=== PATIENT | female | born 1945 | race Caucasian/White ===

== ENCOUNTER 2021-03-04 14:17 | Outpatient (CLI) | payer MEDICARE, SELFPAY | END 2021-03-04 23:59 | disposition short-term general hospital (02) | PROVIDERS: Visit Provider Obstetrics & Gynecology | DX: R30.0 Dysuria (principal) | CPT/HCPCS: 87086; 87088 ==

== ENCOUNTER 2021-03-09 14:28 | Outpatient (CLI) | payer MEDICARE, SELFPAY ==
--- NOTE | 2021-03-09 14:36 | US_ITS ---
STUDY: ULTRASOUND OF THE FEMALE PELVIS - COMPLETE REASON FOR EXAM: Female, 75 years old. pelvic pain TECHNIQUE: Endovaginal. Transvaginal US was obtained to better visualized the ovaries. Examination is dated 03.09.21 but is only now available for review. COMPARISON: None. FINDINGS: The uterus is retroverted and is in a midline position. The uterus measures 7.6 x 3.2 cm. There is a Nabothian cyst of the cervix. The endometrium measures 4 mm in thickness, and is hyperechoic. There is a 7 x 7 x 8 mm heterogeneous nodule near or within the endometrium. I.U.D. - The patient does not have an I.U.D. There is nonvisualization of the right ovary due to overlying bowel gas. There is nonvisualization of the left ovary due to overlying bowel gas. There is no fluid in the cul-de-sac. Urinary bladder is 115 cc. US/Transvaginal Non- IMPRESSION: Atrophic uterus. There are Nabothian cysts of the cervix. Question subendometrial fibroid in the uterus vs endometrial mass. Given the patient''s age direct visualization is recommended Electronically Signed: Dale Nichols MD at 14:58 EST , Service support ,
--- NOTE | 2021-03-09 14:36 | US_ITS ---
STUDY: ULTRASOUND OF THE FEMALE PELVIS - COMPLETE REASON FOR EXAM: Female, 75 years old. pelvic pain TECHNIQUE: Transabdominal. Examination is dated 03.09.21 but is only now available for review. COMPARISON: None. FINDINGS: The uterus is retroverted and is in a midline position. The uterus measures 7.6 x 3.2 cm. There is a Nabothian cyst of the cervix. The endometrium measures 4 mm in thickness, and is hyperechoic. There is a 7 x 7 x 8 mm heterogeneous nodule near or within the endometrium. I.U.D. - The patient does not have an I.U.D. There is nonvisualization of the right ovary due to overlying bowel gas. There is nonvisualization of the left ovary due to overlying bowel gas. There is no fluid in the cul-de-sac. Urinary bladder is 115 cc. US/Pelvic (Non ) IMPRESSION: Atrophic uterus. There are Nabothian cysts of the cervix. Question subendometrial fibroid in the uterus vs endometrial mass. Given the patient''s age direct visualization is recommended Electronically Signed: Dale Nichols MD at 15:00 EST , Service support ,
== END 2021-03-09 23:59 | disposition short-term general hospital (02) ==
PROVIDERS: Referring Provider Obstetrics & Gynecology; Visit Provider Obstetrics & Gynecology
DX: N81.6 Rectocele (principal)
CPT/HCPCS: 76830; 76856

== ENCOUNTER 2021-05-15 10:19 | Observation (INO) | payer MEDICARE, SELFPAY ==
--- NOTE | 2021-05-14 15:46 | EKG12_ITS ---
Test Reason : PREOP Blood Pressure : / mmHG Vent. Rate : 059 BPM Atrial Rate : 059 BPM P-R Int : 244 ms QRS Dur : 076 ms QT Int : 408 ms P-R-T Axes : 048 -14 027 degrees QTc Int : 403 ms Sinus bradycardia with 1st degree A-V block Voltage criteria for left ventricular hypertrophy Abnormal ECG Confirmed by RIOS WARD, JESSICA ([id number]), food expeditor ESTHER MELO ([id number]) on 05/18/2021 9:48:50 AM Referred By: Martine Thorpe Confirmed By:RIOS NATION MD
[2021-05-14 16:36] LABS: Hematocrit 40.3 % (37-47); Hemoglobin 12.6 g/dL (12.0-15.0); Mean Corp Hgb Conc 31.3 g/dL (32-36); Mean Corpuscular Hgb 29.2 pg (27.0-32.0); Mean Corpuscular Volume 93.5 fL (81-99); Mean Platelet Vol. 10.1 fl (6.2-12.0); Platelet Count 257 K/mm3 (150-450); RBC Distribution Width CV 12.7 % (11.6-14.6); RBC Distribution Width SD 43.8 fl (35.1-43.9); Red Blood Count 4.31 M/mm3 (4.2-5.4); White Blood Count 5.5 K/mm3 (4.4-11.0)
[2021-05-14 17:26] LABS: Magnesium 2.1 mg/dL (1.6-2.6); Thyroid Stim Hormone (TSH) 0.22 uIU/mL (0.358-3.74)
--- NOTE | 2021-05-14 18:24 | PCM.HP.BLA ---
History and Physical Date of Admission: 05/15/21 MR#:[id number]:[id number]: ERLINDA MOHANRep #:[id number] Provider:Dr. Martine Thorpe, DOAge/Sex: 75/F [facility] [place]Signed Intake Vital Signs 05/12/21 15:40 Height 5 ft 9 in Weight: 215 lb 2 oz BMI 31.7 BP 160/70 H Intake Visit Reasons: TVH possible salp. Karen saxena Group Manager Required: No Is patient in pain?: No Allergies aspirin Allergy (Mild, Verified 05/12/21 10:21) difficulty breathing lactose Allergy (Verified 05/12/21 10:21) Upset Stomach Medications alendronate 70 mg tablet 70 mg PO QWEEK 03/04/21 [History Confirmed 05/12/21] ascorbic acid (vitamin C) 500 mg capsule 500 mg PO DAILY 03/04/21 [History Confirmed 05/12/21] cholecalciferol (vitamin D3) 50 mcg (2,000 unit) capsule 50 mcg PO DAILY 03/04/21 [History Confirmed 05/12/21] cranberry 400 mg capsule 400 mg PO DAILY 03/04/21 [History Confirmed 05/12/21] folic acid 1 mg tablet 1 mg PO DAILY 03/04/21 [History Confirmed 05/12/21] levothyroxine 50 mcg tablet 125 mcg PO DAILY tab 03/04/21 [History Confirmed 05/12/21] metoprolol succinate 50 mg tablet,extended release 24 hr 50 mg PO DAILY 03/04/21 [History Confirmed 05/12/21] omega-3 fatty acids 1,000 mg capsule 1,000 mg PO DAILY 03/04/21 [History Confirmed 05/12/21] sertraline 50 mg tablet 50 mg PO DAILY 03/04/21 [History Confirmed 05/12/21] Lactobacillus acidophilus [Probiotic] 10,000 mmu cells PO DAILY 05/12/21 [History Confirmed 05/12/21] biotin 5 mg PO DAILY 05/12/21 [History Confirmed 05/12/21] ginkgo biloba 50 mg PO BID 05/12/21 [History Confirmed 05/12/21] loratadine [Allerclear] 10 mg PO DAILY 05/12/21 [History Confirmed 05/12/21] multivitamin 1 tab PO DAILY 05/12/21 [History Confirmed 05/12/21] turmeric 400 mg PO DAILY 05/12/21 [History Confirmed 05/12/21] vitamin E 100 unit PO DAILY 05/12/21 [History Confirmed 05/12/21] Is last menstrual period known: No Post menopausal: Yes Patient : No : No PFSH Medical History Alcohol use Arthritis Asthma Back pain Hypertension Non-smoker Post-menopausal Shortness of breath on exertion Thyroid disease Wears dentures Wears glasses Surgical History S/P hernia repair S/P tonsillectomy Status post left knee replacement Status post right knee replacement Family History Father Diabetes Social History Smoking Status: Never smoker alcohol intake: current details: occasionally substance use type: does not use caffeine: Yes what type of physical activity do you participate in: other details: water aerobics frequency: 1-2 times per week seatbelt use: always do you feel safe at home: Yes additional social history: HPI TVH possible salp. Jones combo Details: ERLINDA MOHAN is a 75 year old who presents for preop counseling to and to signs consents. She is scheduled for a total vaginal hysterectomy with A&P repair with myself and Dr. Jones. we discussed trying to also remove the fallopian tubes and ovaries if possible. This is being performed for vaginal prolapse. Pregancy History 5 Elective abortions Hx Para 5 Spontaneous abortions Hx # Term Pregnancies Ectopic pregnancies Hx # Pregnancies Multiple births # of living children Past Pregnancies Del. Date Name GA/Weeks Outcome Route Bth Weight Infant Gen Labor Lgth Anesthesia Del Locatn Provider FOB Unknown Chloe Unknown Norma Unknown Jo Unknown Ayaan Unknown Grupo ROS Const ROS Unobtainable: All systems reviewed & are unremarkable except as noted in H Resp Resp: Reports system reviewed and no additional complaints, except as documented; Denies cough GI GI: Reports as per HPI Psych Psych: Reports system reviewed and no additional complaints, except as documented Exam Const General: cooperative, healthy appearing, comfortable and no acute distress Resp Effort & Inspection: normal respiratory effort Skin General: no rashes or lesions noted Psych Appearance: grossly normal Speech and Movement: speech and movement normal Coding Level of Care Code Off vis,est,level 3 Diagnoses Preop examination Z01.818 Hypothyroidism E03.9 Hypertension I10 Anxiety F41.9 Osteopenia M85.80 Pelvic organ prolapse quantification stage 2 rectocele N81.6 Assessment and Plan Assessment and Plan (1) Preop examination: (2) Hypothyroidism: Status: Acute (3) Hypertension: Status: Chronic (4) Anxiety: Status: Acute (5) Osteopenia: Status: Acute (6) Pelvic organ prolapse quantification stage 2 rectocele: Status: Acute Comment: minimal uterine descent, however grade 2/3 rectocele and mild cystocele on spec exam.'pt has surgery scheduled with Dr. Jones on 05/15 for recotocele and cystocele repair and would like to proceed with hysterectomy for optimal improvement in pelvic floor prolapse. Plan - Dr. Martine Thorpe DO: After discussing the patient's diagnosis and treatment plan options, patient wishes to proceed with surgical management. I have discussed with the patient the risks, benefits, and alternatives of the procedure which include but are not limited to risks of anesthesia, bleeding, infection, possible damage to bowel, bladder, or surrounding vasculature which could lead to additional surgery to evaluate any complications. Patient agrees to procedure and wishes to proceed. ACOG/uptodate references given for additional information regarding procedure. UPDATE- I have seen the patient and performed any clinically relevant updates to the history and physical exam. Martine Thorpe DO
[2021-05-15] VITALS (14 sets, daily range): BP systolic 108–171; BP diastolic 54–85; PULSE 48–69; RESP 14–18; TEMP 36.2–36.9; O2SAT 95–100; BMI 33.1
[2021-05-15 06:21] LABS: Bedside Glucose 136 mg/dL (74-106)
[2021-05-15] MEDS: Lactated Ringers 1,000 ML 40 ML IV (06:27)
[2021-05-15] MEDS: Acetaminophen 500 MG Tablet 1000 MG PO ×2 (06:28→16:38)
[2021-05-15] MEDS: Celecoxib 200 MG Capsule 400 MG PO (06:28)
[2021-05-15] MEDS: Gabapentin 600 MG Tablet PO (06:28)
[2021-05-15 07:26] LABS: Anion Gap 4 (5-15); BUN 16 mg/dL (7-18); BUN/Creat Ratio 21.1 RATIO (10-20); Calcium,Total 9.1 mg/dL (8.5-10.1); Chloride 108 mmol/L (98-107); Creatinine, Serum 0.76 mg/dL (0.55-1.02); EST Glomerular Filtration Rate 79 mL/min (>60); Est Glom Filt Rate - Afr Amer 95 mL/min (>60); Estimated Creatinine Clearance 49.03 ml/min; Glucose 98 mg/dL (74-106); Potassium 4.5 mmol/L (3.5-5.1); Sodium Level 139 mmol/L (136-145)
[2021-05-15] MEDS: Cefazolin 2 GM in 0.9% Normal Saline 100 ML IV (07:27)
--- NOTE | 2021-05-15 07:30 | HYST_PTH ---
PATIENT: ERLINDA MOHAN LOC: [facility] U#:[id number] AGE/SX: 75/F ROOM: [facility] [place] RE05/15/[address]: Dr. Martine Thorpe DO : 1945 BED: 1 DIS: 05/16/2021 SPEC #: [id number] RECD: 05/15/21 10:35 STATUS: NAFISA CASTILLO #: [id number] ANKUR: 05/15/21 07:[address]: Martine Thorpe DEPT: SURGICAL PATHOLOGY RECD BY: Leah Lester ENTERED: 05/15/21 10:48 SP TYPE: HYSTERECT OTHR DR: MD Dr. Alexa Hillman MD Tissues: Uterus, NOS Procedures: Surgery Specimen Level V HEADER OPERATION: ERAS, vaginal hysterectomy, right salpingo-oophorectomy PRE-OP DIAGNOSIS: Pelvic organ prolapse, rectocele, cystocele TISSUE SUBMITTED: Uterus and right tube and ovary MICROSCOPIC DIAGNOSIS Uterus, hysterectomy: Cervix ? nabothian cysts and mild chronic inflammation. Endometrium ? weakly proliferative inactive endometrium with focal cystic change. Myometrium ? leiomyomas with focal lipomatous metaplasia. Right ovary ? corpora albicantia. Right fallopian tube ? benign paratubal cysts. AM:ethan 05/18/2021 MICROSCOPIC DESCRIPTION Slides are reviewed. GROSS DESCRIPTION Received in fixative is one container labeled with the patient's name and designated uterus. The specimen consists of a uterus with attached cervix measuring 9.5 x 5 x 3.3 cm and weighing 62.6 gm. The endocervical canal measures 3.3 cm in length and is grossly unremarkable. The triangular endometrial cavity measures 3.5 x 3 cm. The velvety, light dominguez endometrium measures 0.2 cm in thickness. The myometrium averages 1.5 cm in thickness and contains three rubbery, dominguez nodules ranging in size from 0.5 to 0.8 cm and grossly resembling leiomyomas. Present free in the container is a smooth, glistening dominguez-yellow ovary measuring 1.7 x 1.5 x 1 cm. Serial sections do not reveal mass lesions. Bacteriology Research Assistant sections are submitted in seven cassettes as follows: 1 - anterior cervix, 2??posterior cervix, 3 - anterior uterine wall with myometrial mass, 4 - anterior uterine wall, 5 - posterior uterine wall with myometrial mass, 6 - posterior myometrial wall with additional myometrial mass, 7??ovary and fallopian tube. / AM:ethan 05/15/2021 TC:1 CPT: 14813
[2021-05-15] MEDS: Bupivacaine 0.25% 30 ML Vial (07:57)
[2021-05-15] MEDS: Estrogens,Conj. 1 Tube 1 DOSE (09:57)
--- NOTE | 2021-05-15 10:05 | OP.PCM_ITS ---
Problems Associated Problem List Diagnoses (1) Cystocele with uterine descensus: Report of Operation Date of Procedure: 05/15/21 Pre-Operative Diagnosis: Cystocele, uterine prolapse Post-Operative Diagnosis: Same Surgery/Procedure Performed:: Anterior repair with dermis, bilateral sacrospinous ligament fixation, cystoscopy with bilateral ureteral catheterization Surgeon: Alexa Jones Type of Anesthesia: General Specimen's removed: None Estimated Blood Loss (mL): 15 cc Description of Procedure: The patient is a 75-year-old female with pelvic organ prolapse who underwent testing in the office with urodynamics and office cystoscopy who now presents for surgical intervention in combination with gynecology. Informed consent was obtained. The patient was taken to the operating room and placed on the operating room table. Anesthesia monitored the head, neck, airway, IV access and vital signs throughout the case. Once anesthesia was appropriate ministered, the patient was placed into Trendelenburg and dorsal lithotomy position and was prepped and draped in usual sterile fash ion. A Luna catheter was inserted and the bladder was drained. A hysterectomy was performed by Dr. Gomez. At the closure of the cuff the case was turned over to sc. The anterior vaginal wall was isolated and injected submucosally with Marcaine for hydrostatic dissection. A midline incision approximately 2 cm in length was then made. Dissection was performed in full-thickness fashion on both sides until the ischial spines were palpable and the sacrospinous ligaments were identified and freed from surrounding tissues bilaterally. At this time the Capio device was used to pass an Ethibond suture through each ligament bilaterally. This was then brought out through a piece of dermis and then ultimately full-thickness through the vaginal mucosal wall laterally at the apex. The dermis was then sutured into position in the midline apically and at the area of the bladder neck and bilaterally. When this was completed, the midline incision was closed using running interlocking 2-0 Vicryl. The Ethibond sutures were then tied into position and the prolapse was reduced. There is no significant posterior defect at this time. The Luna catheter was removed and the cystoscope was inserted through the urethra under direct visualization. The bladder mucosa was visualized in its entirety and found to be without evidence of injury, foreign body or other abnormality including mass. Bilateral ureteral orifices were identified in the area of the trigone. A whistle-tip catheter was passed gently to 20 cm on both sides revealing no evidence of injury or obstruction to either ureter. At this time the cystoscope was removed and the Luna catheter was reinserted and the balloon inflated with 10 cc of sterile water. The vagina was packed with Premarin cream and vaginal packing. The patient was awakened and taken to the recovery room in good condition. There were no complications during this procedure. Complications None Admit VTE Documentation VTE Present on Admission: Yes VTE Mechan Device Prophylaxis: SCD's VTE Pharm Prophylaxis ordered?: Yes
--- NOTE | 2021-05-15 10:11 | PCM.DC ---
Documented by User: Dr. Alexa Jones MD 05/16/21 11:08 Discharge Instructions Diet Discharge Diet: No restrictions Activity Discharge Activity: May Shower May resume sexual activity in: 8 weeks Lifting Restrictions: No more than 5 pounds for 8 weeks Additional Activity Instructions:: No strenuous activity, no exercise, no tub bathing, no swimming, no hot tubs Dressing / Incision Call your doctor if your incision/area has: Continuous Slow Oozing, Sudden Increased Bleeding, Increased Pain/ Swelling and Foul Smelling Discharge Call your doctor if you observe: Fever of 101 or Higher, Inability to urinate and Inability to have a bowel movement Follow Up Care Please Follow Up With: Alexa Jones MD When: 2 weeks, call the office for appointment Test Results: Test results from this visit will be discussed in further detail at your follow-up appointment, if applicable. Discharge Plan Admission Admit Date/Time: 05/15/21 10:19 Primary Reason for Your Visit: hysterectomy, and vaginal repair of prolapse Attending Provider: Martine Thorpe Primary Care Provider: Alesia Pradhan Consulting Providers: Alexa Jones Instructions Patient Instructions: Hysterectomy Vaginal Dc Discharge Orders/Prescriptions Prescriptions: New oxycodone-acetaminophen [oxycodone-acetaminophen] 1 TABLET tablet 2 tab PO Q8H PRN PRN (Reason: Pain) 7 Days Qty: 20 RF: 0 cephalexin [cephalexin] 500 MG capsule 500 mg PO Q12 3 Days Qty: 6 RF: 0 ibuprofen 600 mg tablet 600 mg PO Q6H PRN (Reason: pain) 7 Days Qty: 28 RF: 0 ferrous gluconate 324 mg (38 mg iron) tablet 324 mg PO DAILY Qty: 30 RF: 0 No Action metoprolol succinate 50 mg tablet extended release 24 hr 50 mg PO DAILY RF: 0 sertraline 50 mg tablet 50 mg PO DAILY RF: 0 alendronate [Fosamax] 70 mg tablet 70 mg PO QWEEK RF: 0 ascorbic acid (vitamin C) 500 mg capsule 500 mg PO DAILY RF: 0 cholecalciferol (vitamin D3) 50 mcg (2,000 unit) capsule 50 mcg PO DAILY RF: 0 folic acid 1 mg tablet 1 mg PO DAILY RF: 0 omega-3 fatty acids 1,000 mg capsule 1,000 mg PO DAILY RF: 0 cranberry 400 mg capsule 400 mg PO DAILY RF: 0 levothyroxine [Synthroid] 50 mcg tablet 125 mcg PO DAILY RF: 0 multivitamin Tablet 1 tab PO DAILY RF: 0 biotin 5 mg Capsule 5 mg PO DAILY RF: 0 vitamin E 100 unit Capsule 100 unit PO DAILY RF: 0 ginkgo biloba 50 mg Capsule 50 mg PO BID RF: 0 loratadine [Allerclear] 10 mg Tablet 10 mg PO DAILY RF: 0 Probiotic 10 billion cell Capsule 10,000 mmu cells PO DAILY RF: 0 turmeric 400 mg Capsule 400 mg PO DAILY RF: 0 Referrals / Follow Up: Alesia Pradhan MD [Primary Care Provider] - Disposition Disposition (needs filled in before D/C Order can be placed): Home, Self Care Documented by User: Dr. Martine Thorpe DO 05/16/21 09:46 Discharge Plan Admission Admit Date/Time: 05/15/21 10:19 Primary Reason for Your Visit: hysterectomy, and vaginal repair of prolapse Attending Provider: Martine Thorpe Primary Care Provider: Alesia Pradhan Consulting Providers: Alexa Jones Instructions Patient Instructions: Hysterectomy Vaginal Dc Discharge Orders/Prescriptions Prescriptions: New oxycodone-acetaminophen [oxycodone-acetaminophen] 1 TABLET tablet 2 tab PO Q8H PRN PRN (Reason: Pain) 7 Days Qty: 20 RF: 0 cephalexin [cephalexin] 500 MG capsule 500 mg PO Q12 3 Days Qty: 6 RF: 0 ibuprofen 600 mg tablet 600 mg PO Q6H PRN (Reason: pain) 7 Days Qty: 28 RF: 0 ferrous gluconate 324 mg (38 mg iron) tablet 324 mg PO DAILY Qty: 30 RF: 0 No Action metoprolol succinate 50 mg tablet extended release 24 hr 50 mg PO DAILY RF: 0 sertraline 50 mg tablet 50 mg PO DAILY RF: 0 alendronate [Fosamax] 70 mg tablet 70 mg PO QWEEK RF: 0 ascorbic acid (vitamin C) 500 mg capsule 500 mg PO DAILY RF: 0 cholecalciferol (vitamin D3) 50 mcg (2,000 unit) capsule 50 mcg PO DAILY RF: 0 folic acid 1 mg tablet 1 mg PO DAILY RF: 0 omega-3 fatty acids 1,000 mg capsule 1,000 mg PO DAILY RF: 0 cranberry 400 mg capsule 400 mg PO DAILY RF: 0 levothyroxine [Synthroid] 50 mcg tablet 125 mcg PO DAILY RF: 0 multivitamin Tablet 1 tab PO DAILY RF: 0 biotin 5 mg Capsule 5 mg PO DAILY RF: 0 vitamin E 100 unit Capsule 100 unit PO DAILY RF: 0 ginkgo biloba 50 mg Capsule 50 mg PO BID RF: 0 loratadine [Allerclear] 10 mg Tablet 10 mg PO DAILY RF: 0 Probiotic 10 billion cell Capsule 10,000 mmu cells PO DAILY RF: 0 turmeric 400 mg Capsule 400 mg PO DAILY RF: 0 Referrals / Follow Up: Alesia Pradhan MD [Primary Care Provider] - Disposition Disposition (needs filled in before D/C Order can be placed): Home, Self Care
[2021-05-15] MEDS: Lactated Ringers @ 70 MLS/HR 70 ML IV (10:33)
[2021-05-15] MEDS: Ondansetron 4 MG/2 ML Vial IV (12:14)
[2021-05-15] MEDS: Lactated Ringers 1,000 ML 100 ML IV ×2 (12:53→21:48)
--- NOTE | 2021-05-15 12:54 | OP.PCM_ITS ---
Problems Associated Problem List Diagnoses (1) Cystocele with uterine descensus: (2) Hypothyroidism: (3) Hypertension: (4) Anxiety: (5) Osteopenia: (6) Pelvic organ prolapse quantification stage 2 rectocele: Report of Operation Date of Procedure: 05/15/21 Pre-Operative Diagnosis: pelvic organ prolapse Post-Operative Diagnosis: pelvic organ prolapse Surgery/Procedure Performed:: total vaginal hysterectomy, Right salpingo- oophorectomy Description of Surgical Findings:: Patient was taken to the operating room and was placed under general anesthesia was prepped and draped in normal sterile fashion in the dorsal lithotomy position. Preoperative antibiotics and SCDs and Luna catheter was placed inside the bladder. Weighted speculum was placed in the vagina and the anterior and posterior lip of the cervix was grasped with 2 Jose clamps and circumferentially injected with 0.25% marcaine. A circumferential incision was made with a scalpel and the posterior cul-de-sac was entered into sharply and a longneck speculum was placed. The anterior cul-de-sac was also dissected down and entered into sharply and the uterosacral ligaments were clamped cut and suture ligated bilaterally followed by the cardinal ligaments which were Clamped cut and suture ligated bilaterally with #0 Vicryl. The uterus serially descended and progressive bites were taken bilaterally up to the level of the utero-ovarian ligament bilaterally which was clamped transected and double ligated with #0 Vicryl suture and 0 Vicryl free tie. Bilateral fallopian tubes and ovaries were well visualized and noted be within normal limits and the bilateral fallopian tubes were transected across the base with a Alycia clamp and removed and sutured with 0 Vicryl suture. The right ovary and fallopian tube were identified easily and the infandibulopelvic ligament was doubly clamped and the tube and ovary were removed. #0 vicryl suture was used to creat excellent hemostasis. Posterior peritoneum was reapproximated with 1-0 Vicryl The vagina was closed with [id number] 0 Vicryl pop offs including the posterior and anterior peritoneum in the reapproximation. Excellent hemostasis was noted. All instruments removed from the vagina clear urine was noted at the end of the procedure. Dr. Jones then started her portion of the procedure. Surgeon: Martine Thorpe metal die finisher: Angella Marie Type of Anesthesia: General Estimated Blood Loss (mL): 50cc Description of Procedure: Patient was taken to the operating room and was placed under general anesthesia was prepped and draped in normal sterile fashion in the dorsal lithotomy position. Preoperative antibiotics and SCDs and Luna catheter was placed inside the bladder. Weighted speculum was placed in the vagina and the anterior and posterior lip of the cervix was grasped with 2 Jose clamps and circumferentially injected with 0.25% Marcaine. A circumferential incision was made with a scalpel and the posterior cul-de-sac was entered into sharply and a longneck speculum was placed. The anterior cul-de-sac was also dissected down and entered into sharply and the uterosacral ligaments were clamped cut and suture ligated bilaterally followed by the cardinal ligaments which were Clamped cut and suture ligated bilaterally with #0 Vicryl. The uterus serially descended and progressive bites were taken bilaterally up to the level of the utero-ovarian ligament bilaterally which was clamped transected and double ligated with #0 Vicryl suture and 0 Vicryl free tie. Bilateral fallopian tubes and ovaries were well visualized and noted be within normal limits and the bilateral fallopian tubes were transected across the base with a Alycia clamp and removed and sutured with 0 Vicryl suture. The right ovary and fallopian tube were identified easily and the infundibulopelvic ligament was doubly clamped and the tube and ovary were removed. #0 vicryl suture was used to creat excellent hemostasis. Posterior peritoneum was reapproximated with 1-0 Vicryl The vagina was closed with [id number] 0 Vicryl pop offs including the posterior and anterior peritoneum in the reapproximation. Excellent hemostasis was noted. All instruments removed from the vagina clear urine was noted at the end of the procedure. Dr. Jones then started her portion of the procedure. Admit VTE Documentation VTE Present on Admission: Yes VTE Mechan Device Prophylaxis: SCD's VTE Pharm Prophylaxis ordered?: Yes Multi Select Codes Urinary/Genital Urinary/Genital CPT Codes: 05255 TVH+BS/O <250gr uterus
[2021-05-15] MEDS: Cefazolin 1 GM/50 ML BAG IV (15:11)
[2021-05-15] MEDS: Ketorolac 30 MG/ML Syringe IV (17:56)
[2021-05-15] MEDS: Docusate Sodium 100 MG Capsule PO (21:41)
[2021-05-16] MEDS: Ketorolac 30 MG/ML Syringe IV ×3 (00:17→11:48)
[2021-05-16] MEDS: Cefazolin 1 GM/50 ML BAG IV (00:17)
[2021-05-16 02:56] VITALS: BP 117/39; PULSE 64; RESP 16; TEMP 36.9; O2SAT 93
[2021-05-16] MEDS: Enoxaparin 40 MG/0.4 ML Syringe SC (05:56)
[2021-05-16] MEDS: Levothyroxine 125 MCG Tablet PO (05:56)
[2021-05-16] MEDS: Furosemide 20 MG/2 ML VIAL IV (06:40)
[2021-05-16 07:32] LABS: Absolute Lymphocyte Count 1.36 X10^3/uL (0.83-4.51); Absolute Neutrophil Count 5.8 X10^3/uL (2.0-7.7); Basophil# 0.02 X10^3/uL; Basophil% 0.3 % (0-1); Eosinophil# 0.02 X10^3/uL; Eosinophils% 0.3 % (0-5); Hematocrit 31.4 % (37-47); Hemoglobin 9.7 g/dL (12.0-15.0); Lymphocyte # 1.36 X10^3/ul (0.83-4.51); Lymphocyte % 17.2 % (19-41); Mean Corp Hgb Conc 30.9 g/dL (32-36); Mean Corpuscular Hgb 29.2 pg (27.0-32.0); Mean Corpuscular Volume 94.6 fL (81-99); Monocyte# 0.73 X10^3/uL; Monocyte% 9.2 % (0-10); NRBC Flagged by Analyzer 0 % (0-5); Neutrophil # 5.78 X10^3/uL (2.7-7.7); Neutrophil % 72.7 % (47-70); Platelet Count 186 K/mm3 (150-450); RBC Distribution Width CV 12.6 % (11.6-14.6); RBC Distribution Width SD 43.7 fl (35.1-43.9); Red Blood Count 3.32 M/mm3 (4.2-5.4); White Blood Count 7.9 K/mm3 (4.4-11.0)
[2021-05-16 07:45] LABS: AST(SGOT) 12 U/L (15-37); Alanine Aminotransfer ALT/SGPT 13 U/L (13-56); Albumin, Serum 2.6 g/dL (3.2-5.0); Alkaline Phosphatase 36 U/L (45-117); Anion Gap 3 (5-15); BUN 15 mg/dL (7-18); BUN/Creat Ratio 19.3 RATIO (10-20); Calcium,Total 7.8 mg/dL (8.5-10.1); Chloride 103 mmol/L (98-107); Creatinine, Serum 0.78 mg/dL (0.55-1.02); EST Glomerular Filtration Rate 77 mL/min (>60); Est Glom Filt Rate - Afr Amer 93 mL/min (>60); Estimated Creatinine Clearance 49.03 ml/min; Globulin 2.7 g/dL (2.2-4.2); Glucose 112 mg/dL (74-106); Protein, Total 5.3 g/dL (6.4-8.2); Sodium Level 134 mmol/L (136-145)
[2021-05-16] MEDS: Acetaminophen 500 MG Tablet 1000 MG PO (08:06)
[2021-05-16 09:20] VITALS: BP 130/51; PULSE 69; RESP 16; TEMP 36.4; O2SAT 100
[2021-05-16 09:40] VITALS: PULSE 69
[2021-05-16] MEDS: Metoprolol(XL)Succ 50 MG Tablet PO (09:40)
[2021-05-16] MEDS: Lactated Ringers 1,000 ML 100 ML IV (09:40)
[2021-05-16] MEDS: Sertraline 50 MG Tablet PO (09:40)
[2021-05-16] MEDS: Docusate Sodium 100 MG Capsule PO (09:40)
[2021-05-16] MEDS: Loratadine 10 MG Tablet PO (09:40)
--- NOTE | 2021-05-16 09:46 | PN.OBGYN_ITS ---
Objective Data Objective Data Vital Signs: Vital Signs Temp Pulse Resp BP Pulse Ox 98.4 F 69 16 117/39 L 93 05/16/21 02:56 05/16/21 09:40 05/16/21 02:56 05/16/21 02:56 05/16/21 02:56 Oxygen Flow Rate (L/min) 4 Oxygen Delivery Method Room Air Weight: 217 lb 13.067 oz Body Mass Index (BMI) 33.1 Intake & Output: Intake and Output for Last 24 Hours 05/14/21 05/15/21 05/16/21 23:59 23:59 23:59 Intake Total 2772.17 / 3022.17 2400.00 / 2400.00 Output Total 1400 / 1600 325 / 325 Balance 1372.17 / 1422.17 2075.00 / 2075.00 Lab / Micro Data Result Diagrams: 05/16/21 07:10 05/16/21 07:10 Labs: Laboratory Results - last 24 hr 05/16/21 07:10: WBC 7.9, RBC 3.32 L, Hgb 9.7 L, Hct 31.4 L, MCV 94.6, MCH 29.2, MCHC 30.9 L, RDW Std Deviation 43.7, RDW Coeff of Fanny 12.6, Plt Count 186, MPV 10.0, Immature Gran % (Auto) 0.300, Neut % (Auto) 72.7 H, Lymph % (Auto) 17.2 L, [place] % (Auto) 9.2, Eos % (Auto) 0.3, Baso % (Auto) 0.3, Absolute Neuts (auto) 5.8, Absolute Lymphs (auto) 1.36, Nucleated RBC % 0 05/16/21 07:10: Sodium 134 L, Potassium 4.0, Chloride 103, Carbon Dioxide 28.0, Anion Gap 3 L, BUN 15, Creatinine 0.78, Estim Creat Clear Calc 49.03, Est GFR (MDRD) Af Amer 93, Est GFR (MDRD) Non-Af 77, BUN/Creatinine Ratio 19.3, Glucose 112 H, Calcium 7.8 L, Total Bilirubin 0.30, AST 12 L, ALT 13, Alkaline Phosphatase 36 L, Total Protein 5.3 L, Albumin 2.6 L, Globulin 2.7, Albumin/Globulin Ratio 1.0 Micro: Microbiology 05/14/21 15:50 Interface Orders SARS-CoV-2 Antigen (Rapid) - Final ROS Constitutional Constitutional: Denies chills, fatigue, fever(s), poor appetite or weakness Cardiovascular Cardiovascular: Denies chest pain, dizziness, dyspnea, irregular heart rhythm, palpitations or rapid heart rate Respiratory/Chest Respiratory/Chest: Denies chest tightness, cough, dyspnea or breast pain Gastrointestinal Gastrointestinal: Denies abdominal pain, constipation or vomiting Genitourinary Genitourinary: Denies dysuria or flank pain Musculoskeletal Musculoskeletal: Denies difficulty walking, joint pain, limited range of motion or numbness Psychiatric Psychiatric: Denies anxiety, change in appetite, confusion or depression Physical Exam Const alert, oriented x3 and no apparent distress General Appearance: cooperative and comfortable Resp normal respiratory effort Cardio regular rate GI normal to inspection, nondistended, normoactive bowel sounds Palpation: soft Back/Spine no CVA tenderness and thoraco-lumbar ROM normal Extremity normal to inspection, no clubbing, cyanosis or edema, no calf tenderness and no pedal edema Psych mental status grossly normal, thought process normal, cooperative, affect normal, speech normal, activity/motor behavior normal, denies homicidal ideation and denies suicidal ideation Assessment & Plan (1) Pelvic organ prolapse quantification stage 2 rectocele: COMMENT: minimal uterine descent, however grade 2/3 rectocele and mild cystocele on spec exam.'pt has surgery scheduled with Dr. Jones on 05/15 for recotocele and cystocele repair and would like to proceed with hysterectomy for optimal improvement in pelvic floor prolapse. (2) Osteopenia: (3) Anxiety: (4) Hypertension: (5) Hypothyroidism: (6) Cystocele with uterine descensus: PLAN: patient is s/p TVH RSO, A&P repair- POD 1 1. routine ERAS protocol postop care- increase ambulation, encourage oral intake and oral control of pain. voided 800cc this am after fluid bolus + lasix. lovenox and scds for dvt prophylaxis, patient stable for discharge to home. 2. home with Percocet, motrin, iron. 3. follow up in 2 weeks.
--- NOTE | 2021-05-16 11:06 | PCM.PN.GU ---
Subjective Subjective Sitting up in chair. No nausea but did have some cramping yesterday. Is passing gas and tolerating oral intake. Luna catheter came out approximately 1 hour ago has not yet voided. Objective Data Objective Data Vital Signs: Vital Signs Temp Pulse Resp BP Pulse Ox 98.4 F 69 16 117/39 L 93 05/16/21 02:56 05/16/21 09:40 05/16/21 02:56 05/16/21 02:56 05/16/21 02:56 Oxygen Flow Rate (L/min) 4 Oxygen Delivery Method Room Air Weight: 98.8 kg Body Mass Index (BMI) 33.1 Intake & Output: Intake and Output for Last 24 Hours 05/14/21 05/15/21 05/16/21 23:59 23:59 23:59 Intake Total 2772.17 / 3022.17 2400.00 / 2400.00 Output Total 1400 / 1600 325 / 325 Balance 1372.17 / 1422.17 2075.00 / 2075.00 Lab / Micro Data Result Diagrams: 05/16/21 07:10 05/16/21 07:10 Labs: Laboratory Results - last 24 hr 05/16/21 07:10: WBC 7.9, RBC 3.32 L, Hgb 9.7 L, Hct 31.4 L, MCV 94.6, MCH 29.2, MCHC 30.9 L, RDW Std Deviation 43.7, RDW Coeff of Fanny 12.6, Plt Count 186, MPV 10.0, Immature Gran % (Auto) 0.300, Neut % (Auto) 72.7 H, Lymph % (Auto) 17.2 L, [place] % (Auto) 9.2, Eos % (Auto) 0.3, Baso % (Auto) 0.3, Absolute Neuts (auto) 5.8, Absolute Lymphs (auto) 1.36, Nucleated RBC % 0 05/16/21 07:10: Sodium 134 L, Potassium 4.0, Chloride 103, Carbon Dioxide 28.0, Anion Gap 3 L, BUN 15, Creatinine 0.78, Estim Creat Clear Calc 49.03, Est GFR (MDRD) Af Amer 93, Est GFR (MDRD) Non-Af 77, BUN/Creatinine Ratio 19.3, Glucose 112 H, Calcium 7.8 L, Total Bilirubin 0.30, AST 12 L, ALT 13, Alkaline Phosphatase 36 L, Total Protein 5.3 L, Albumin 2.6 L, Globulin 2.7, Albumin/Globulin Ratio 1.0 Micro: Microbiology 05/14/21 15:50 Interface Orders SARS-CoV-2 Antigen (Rapid) - Final Physical Exam Const alert, oriented x3 and no apparent distress GI soft to palpation and non-distended Skin no rashes or lesions noted, skin turgor normal, no jaundice, no petechiae and no mottling Neuro oriented x3, CN's II-XII intact bilaterally and moves all extremities Assessment & Plan Assessment/Plan (1) Cystocele with uterine descensus: PLAN: Await trial of void Discharge home today
[2021-05-16 13:25] VITALS: O2SAT 100
--- NOTE | 2021-05-16 13:48 | CASEMGMT ---
ROBERTA CM in to complete TORRES form with patient. RN VIKRAM explained TORRES form to patient, patient voiced understanding. Patient signed TORRES form and filed in chart. Patient provided with copy of signed TORRES form. Patient had no further questions or concerns at this time.
[2021-05-16 14:00] VITALS: BP 120/51; PULSE 65; RESP 16; TEMP 36.4; O2SAT 97
[2021-05-16 16:30] VITALS: BP 177/59; PULSE 61; RESP 16; TEMP 36.5; O2SAT 100
== END 2021-05-16 17:53 | disposition home or self-care (01) ==
LOC: SDC 11:39 → MS3 11:39
PROVIDERS: Anesthesiology; Admitting Provider Urology; PCP General Practice; Referring Provider Obstetrics & Gynecology; Visit Provider Obstetrics & Gynecology
PROC: (CPT 58260; principal; 2021-05-15 07:10)
PROC: (CPT 57260; 2021-05-15 07:10)
DX: N81.2 Incomplete uterovaginal prolapse (principal); F41.9 Anxiety disorder, unspecified; E03.9 Hypothyroidism, unspecified; I10 Essential (primary) hypertension; Z23 Encounter for immunization; Z79.899 Other long term (current) drug therapy; Z79.890 Hormone replacement therapy; N39.41 Urge incontinence; R35.0 Frequency of micturition; R35.1 Nocturia; M19.90 Unspecified osteoarthritis, unspecified site; J45.909 Unspecified asthma, uncomplicated; N88.8 Other specified noninflammatory disorders of cervix uteri; D25.9 Leiomyoma of uterus, unspecified; N83.291 Other ovarian cyst, right side
CPT/HCPCS: 58262; 57240; 00944; 36415; 80048; 80053; 82962; 83735; 84443; 85025; 85027; 86850; 86900; 86901; 87426; 88307; 93005; 96361; 96365; 96366; 96372; 96375; 96376; 99218; 99251; C9803; J7040; J7120; 90686; C1758; G0378; G0463; J1940; J2405

== ENCOUNTER 2021-06-17 10:21 | Outpatient (CLI) | payer MEDICARE, SELFPAY ==
[2021-06-17 11:57] LABS: Hematocrit 39.8 % (37-47); Hemoglobin 12.5 g/dL (12.0-15.0); Mean Corp Hgb Conc 31.4 g/dL (32-36); Mean Corpuscular Hgb 29.5 pg (27.0-32.0); Mean Corpuscular Volume 93.9 fL (81-99); Mean Platelet Vol. 9.8 fl (6.2-12.0); Platelet Count 290 K/mm3 (150-450); RBC Distribution Width CV 13.3 % (11.6-14.6); RBC Distribution Width SD 46.4 fl (35.1-43.9); Red Blood Count 4.24 M/mm3 (4.2-5.4); White Blood Count 5.4 K/mm3 (4.4-11.0)
[2021-06-17 12:18] LABS: Anion Gap 7 (5-15); BUN 12 mg/dL (7-18); BUN/Creat Ratio 15.2 RATIO (10-20); Calcium,Total 8.9 mg/dL (8.5-10.1); Chloride 106 mmol/L (98-107); Creatinine, Serum 0.79 mg/dL (0.55-1.02); EST Glomerular Filtration Rate 75 mL/min (>60); Est Glom Filt Rate - Afr Amer 91 mL/min (>60); Glucose 114 mg/dL (74-106); Sodium Level 139 mmol/L (136-145)
== END 2021-06-17 23:59 | disposition home or self-care (01) ==
PROVIDERS: PCP General Practice; Referring Provider Urology; Visit Provider Urology
DX: R53.83 Other fatigue (principal)
CPT/HCPCS: 36415; 80048; 85027

== ENCOUNTER 2023-05-09 12:00 | Outpatient (RCR) | payer MEDICARE, SELFPAY ==
--- NOTE | 2023-01-16 17:33 | HP.PTEVAL_ITS ---
Patient's Visit Information Visit Information Visit Information: ERLINDA MOHAN is a 77 year old F referred to Physical Therapy by Dr. Alexa Russell MD with a diagnosis of CYSTOCELE. Date of Evaluation: 01/10/23 Physical Therapist: Lala Yun PT, Cert MDT Visit Plan Frequency: 1x/Week Duration: 2-4 Months Plan: EVAL ONLY. PF THERAPY FOR STRENGTHENING, LENGTHENING/RELAXATION AND ENDURANCE TRAINING. URINARY URGE AND FREQUENCY EDUCATION. HEALTHY BLADDER HABIT EDUCATION. TRAINING IN COORDINATION OF PELVIC FLOOR MUSCULATURE WITH HIP AND CORE (TRANSVERSE ABDOMINUS) MUSCULATURE. CORE STRENGTHENING. CANDE LE ROM, STRETCHING AND STRENGTHENING. TRAINING IN ABDOMINAL CAVITY PRESSURE MGMT WITH ADL'S. Subjective Subjective: Work/Leisure: RETIRED Present symptoms: SLIGHT BURNING WITH URINATION THAT HAS IMPROVED WITH MEDICATION - JUST FINISHING MEDICATION FOR UTI. FELLING OF BULGING IN VAGINAL AREA. INTERMITTENT URINARY LEAKING IN THE MORNING AND WHEN GETTING UP FROM SITTING. URINARY FREQUENCY. RECENT HX OF URGE INCONTINECNE ABOUT 6 WKS AGO AND IN THE PAST. Present since: CHRONIC Pain Scale: PATIENT DENIES LOWER ABDOMINAL AND GENITAL PAIN. Is it getting better, worse or staying the same: UTI SX'S ARE 65% BETTER - STILL GETTING UP AT NIGHT ABOUT EVERY 2 HOURS TO URINATE. PATIENT PLANS TO DISCUSS A SECOND ROUND OF ANTIBIOTICS WITH DR. RUSSELL SHE REPORTS THIS IS COMMON FOR HER TO HAVE TO HAVE TWO ROUNDS. BULGING SX'S HAVE BEEN STAYING THE SAME FOR A LONG TIME. UI UPON RISING HAS BEEN GOING ON FOR A LONG TIME AND NOT JUST WHEN HAVING A UTI. PATIENT DENIES ANY UI SX'S WORSENING AT THIS POINT. Worse: RISING FROM SITTING AND GETTING OUT OF BED IN THE MORNING INCREASES UI. PUSHING TO PASS BM WHEN CONSTIPATED INCREASES FEELING OF BULGING. Better: NOTHING. TRIED SURGERY AND PESSARY FOR CYSTOCELE WITHOUT SUCCESS. Disturbed sleep: NORMALLY GETS UP TO URINATE 1-2 TIMES A NIGHT WHEN NOT HAVING UTI. Previous history/Previous treatment: APRIL 2021 - HYSTERECTOMY AND BLADDER LIFT - DIDN'T WORK - SLIPPED AGAIN. TRIED PESSARY. NO PELVIC FLOOR THERAPY. Coughing/sneezing/straining: COUGHING AND SNEEZING POSITIVE FOR UI AND STRAINING POSITIVE FOR INCREASED FEELING OF BULGING. Gait: INDEP GAIT WITHOUT AD. How long can you delay the need to urinate: ABOUT 10 MINUTES Prolapse (Falling out feeling): YES Frequency of Urination: ABOUT EVERY 2 -3 HRS DURING THE DAY WITH UTI CURRENTLY BUT NORMALLY EVERY 4 HRS OR SO. Ability to stop urine flow: NO Ability to initiate urine stream: YES Dyspareunia: N/A Bowel Incontinence: NO Accidents: No Unexplained weight loss: NO Imaging: NONE RECENT PMH/Recent major surgery: ARTHRITS. HYPOTHYROIDISM, HTN, DEPRESSION. CANDE TKR'S. BACK PAIN. History of total vaginal hysterectomy (TVH) S/P hernia repair OTHER: PATIENT REPORTS DR. RUSSELL ORDERED PT IN SEPTEMBER BUT SHE HAS NOT BEEN ABLE TO COME UNTIL NOW DUE TO FAMILY MEMBERS NEEDING HER. Objective Objective: Sitting/Standing Posture: POOR. ANTERIOR PELVIC TILT. INCREASED KYPHOSIS. Active Correction of posture: INCREASES LBP Other Observations: INDEP GAIT INTO PT. UE ASSIST REQUIRED TO TRANSFER SIT TO STAND. Sensory deficit: CANDE LE LIGHT TOUCH SENSATION GROSSLY INTACT AND SYMMETRICAL ROM deficit: CANDE HIP FLEXOR, HIP ADDUCTOR, HS AND CALF TIGHTNESS. Motor deficit: CANDE LE'S GROSSLY: HIPS 4-/5, KNEES 4/5, ANKLES 5/5. Dural Signs: NEGATIVE CANDE LE'S. Lumbar mvmt loss: flex - NIL ext - TRACI R SG - MOD L SG - MOD PATIENT C/O LBP WITH LUMBAR ROM TESTING ALL PLANES - MY BACK ALWAYS HURTS. Core strength: POOR Palpation: NO ACUTE LUMBAR TENDERNESS. NO PELVIC EXAM DUE TO UTI. PATIENT CO MMUNICATES UNDERSTANDING OF HOW TO CONTRACT PELVIC FLOOR AND HOLD FOR APPROX COUNT OF 5 SEC. X 2-3 REPS. FUNCTIONAL SCREEN: Incontinence Impact Questionnaire Score: 6 Urogenital Distress Inventory Score: 10 Goals Goal 1:: DECREASE URINARY LEAKAGE EPISODES TO TWO OR LESS PER DAY Goal Time Frame: 6-8 Weeks Goal 2:: PATIENT WILL SUCCESSFULLY DELAY VOIDING LONG NEEDED WHEN URGENCY OCCURS TO SUCCESSFULLY MAKE IT TO THE BATHROOM. Goal Time Frame: 6-8 Weeks Goal 3:: PATIENT WILL DEMONSTRATE/COMMUNICATE 10 CONSISTENT AND CONSECUTIVE 10 SECOND PELVIC FLOOR MUSCLE CONTRACTIONS TO DEMONSTRATE IMPROVED PELVIC FLOOR ENDURANCE. Goal Time Frame: 8-12 Weeks Goal 4:: DEVELOP HEALTHY FLUID INTAKE HABITS WITH FLUID INTAKE OF ? BODY WEIGHT IN OUNCES PER DAY AND 2/3 BEING WATER. Goal Time Frame: 2-4 Weeks Goal 5:: NORMALIZE VOIDING FREQUENCEY TO EVERY 3-4 HOURS. Goal Time Frame: 2-4 Weeks Goal 6:: PATIENT WILL BE INDEP WITH A HEP/HOME INSTRUCTIONS FOR CONTINUED IMPROVEMENT ONCE FORMAL PHYSICAL THERAPY CONCLUDES. Goal Time Frame: 8-12 Weeks Rehabilitation Potential Physical Therapy Diagnosis: PROLAPSE AND MIXED INCONTINENCE SX'S WITH CONTRIBUTING FACTORS OF POOR TRUNK AND PELVIC FLOOR STRENGTH, STABILITY AND MOTOR CONTROL. TRUNK AND LE TIGHTNESS. Rehabilitation Potential: Good Anticipated Interventions Patient/Client Instruction: Educate patient on: Condition, Plan of Care and Risk Factors For the Purpose of:: To improve self management Therapeutic Exercise to Include: Strength training, Endurance training, Coordination, Body mechanics, Flexibilty training and Neuromotor development For the Purpose of:: To improve muscle performance and motor function, To increase tolerance to activity/condition/position and To improve ability of physical actions for home/community/work/leisure Text: Thank you for the opportunity to evaluate your patient. For Medicare and Medicare HMO plans, please review the plan of care and approve it. It will need to be FAXED BACK to us at [phone] for Medicare purposes. For Medicare only, by signing this I certify the plan of care. Please let me know if there are questions or concerns regarding this plan of care. Physician Signature: Date:
--- NOTE | 2023-06-19 21:40 | HP.PT.NRP ---
Patient Information Patient Information: ERLINDA MOHAN was seen in my office for initial evaluation on 01/10/23. The following Plan of Care was established for this patient: POC Established Initial Frequency: 1x/Week Initial Duration: 2-4 Months Anticipated Interventions Patient/Client Instruction: Educate patient on: Condition, Plan of Care and Risk Factors For the Purpose of:: To improve self management Therapeutic Exercise to Include: Strength training, Endurance training, Coordination, Body mechanics, Flexibilty training and Neuromotor development For the Purpose of:: To improve muscle performance and motor function, To increase tolerance to activity/condition/position and To improve ability of physical actions for home/community/work/leisure Last Seen Last Seen: This patient was last seen in our office 05/09/23. Pertinent comments regarding their Physical therapy will appear below: It has been my pleasure to see this patient for a total of 9 visits. She has responded well to Physical Therapy and is independent with a home ex program now. She hurt her back and is going to discontinue physical therapy for her pelvic floor at this time and pursue treatment for her back. At this point I will be discontinuing this patient from physical therapy. I would be happy to see this patient again in the future if found appropriate by the physician. Thank you! Lala Yun, PT, Cert MDT
== END 2023-05-09 19:00 | disposition home or self-care (01) ==
LOC: PT 12:00
PROVIDERS: PCP General Practice; Referring Provider Urology; Visit Provider Urology
DX: N81.4 Uterovaginal prolapse, unspecified (principal)
CPT/HCPCS: 97162; 97530

== ENCOUNTER 2023-07-06 10:00 | Outpatient (RCR) | payer MEDICARE, SELFPAY ==
--- NOTE | 2023-05-16 16:16 | HP.PTEVAL ---
Patient's Visit Information Visit Information Visit Information: ERLINDA MOHAN is a 77 year old F referred to Physical Therapy by SRINIVAS GUADARRAMA with a diagnosis of CHRONIC LBP, LUMBAR RADIC AND L BUTTOCK PAIN. Date of Evaluation: 05/16/23 Physical Therapist: Lala Yun PT, Cert MDT Visit Plan Frequency: 2-3x /Week Duration: 4-6 Weeks Plan: CHECK AUTH. GAIT TRAINING. POSTURE TRAINING. CORE STRENGTHEING. L LE ROM, STRETCHING AND STRENGTHEING. LOW BACK AND/OR HIP MODALITIES NEEDED FOR PAIN AND INFLAMMATION. Subjective Subjective: Work/Leisure: RETIRED Present symptoms: LEFT LBP, L BUTTOCK, HIP, THIGH, GROIN, AND LEG PAIN. CANDE FOOT SWELLING. PATIENT DENIES CANDE LE NUMBNESS AND TINGLING INCLUDING IN FEET AND TOES EXCEPT FOR OUTSIDE OF L KNEE SINCE TKR ABOUT 12 YEARS AGO. (SOMETIIMES I WAKE UP WITH PAIN GOING DOWN MY LEG - TO WALKER) Present since: CHRONIC LBP. NEW ONSET L BUTTOCK AND GROIN PAIN SEVERAL WEEKS AGO WHEN LIFTING LEG TO GET OUT OF CAR. Pain Scale: L BUTTOCK/GROIN - WORST 8/10, LEAST 0/10 Currently: 0/10 SITTING, 6/10 WALKING IN. Is it getting better, worse or staying the same: STAYING THE SAME Commenced as a result of: NO APPARENT REASON OTHER THAN LIFTING LEG TO GET OUT OF THE CAR Symptoms at onset: SAME Worse: GETTING IN AND OUT OF THE CAR, WALKING, STANDING, GOING UP AND DOWN STEPS, BENDING, GETTING IN/OUT OF BED, TURNING OVER IN BED Better: SITTING, IBURPOFEN, RECLINER Disturbed sleep: YES Previous history/Previous treatment: NO H/O BACK OR HIP SX OR INJECTIONS. CHIROPRACTIC FOR BACK PAIN A LONG TIME AGO. BACK PAIN HAS MAINLY BEEN SELF-TREATED. H/O L TKE - DENIES COMPLICATIONS. Treatment this episode: ONE CONSULT WITH DONNIE HUTCHINSON AT [facility]. STARTED GABAPENTIN - NE. Coughing/sneezing/straining: NEGATIVE FOR INCREASED PAIN Gait: PATIENT REPORTS SHE HAS BEEN LIMPING EVER SINCE THIS PAIN STARTED. NOT USING ANY ASSISTIVE DEVICES. PATIENT REPORTS THAT FURTHER SHE WALKS THE MORE IT HURTS AND THE MORE SHE LIMPS. SHE REPORTS THE PAIN GETS SEVERE. Bowel or Bladder Dysfunction: PATIENT STATES THERE'S NOTHING HANGING OUT ANYMORE. PATIENT RECENTLY FINISHED AN EPISODE OF CARE IN PHYSICAL THERAPY FOR PELVIC FLOOR. Accidents: NO Unexplained weight loss: NO Imaging: PATIENT REPORTS HAVING LUMBAR X-RAYS AFTER VISIT AND READ ME THE RESULTS FROM HER MYCHART - NORMAL WEAR AND TEAR. SMALL SLIPPED DISC AT L45 BUT IT DOESN'T MOVE ABNORMALLY WHEN LEANING BACK AND FORWARD. SMALL LEG LENGTH DISCREPENCY L LEG LONGER THAN R. DEGENERATIVE SCOLIOSIS. NOTHING SEEMS SERIOUS AT THIS POINT PMH/Recent major surgery: CANDE TKR'S. BLADDER AND FEMALE SX'S. HTN. HYPOTHYROIDISM. ANXIETY. Objective Objective: Sitting/Standing Posture: SCOLIOSIS. L ILIAC CREST HIGHER THAN R. INCREASED LORDOSIS. ANTERIOR PELVIC TILT. Active Correction of posture: UNABLE TO CORRECT. ATTEMPTS HAVE NE ON PAIN. Other Observations: THIS PATIENT AMBULATES INDEP'LY INTO PHYSICAL THERAPY WITH INCREASED TRUNK FLEXION WITHOUT ANY AD'S LIMPING ON HER LLE. SHE IS UNABLE TO TRANSFER SIT TO STAND WITHOUT UE ASSIST. Sensory deficit: CANDE LE LIGHT TOUCH SENSATION IS GROSSLY INTACT AND SYMMETRICAL EXCEPT DECREASED LIGHT TOUCH L LATERAL KNEE. ROM deficit: LIMITED AND PAINFUL L HIP FLEXION AND IR COMPARED TO THE R. PATIENT IS ONLY ABLE TO FLEX L HIP TO APPROX 90 DEG AND IR LEFT HIP 50% FAR R HIP. PATIENT ALSO HAS DECREASED L HIP ACTIVE ABD COMPARED TO RIGHT. Motor deficit: R HIP 4/5, KNEE 4/5, ANKLE 5/5. L HIP FLEX 3-/5, ABD 3-/5. KNEE EXT 3-/5, KNEE FLEX 4-/5, ANKLE DORSI FLEX 5/5. Dural Signs: NEGATIVE CANDE LE'S. Lumbar mvmt loss: flex - MIN - NE ext - TRACI R SG - TRACI - P R LBP - NW L SG - TRACI - NE Core strength: POOR Palpation: NO ACUTE LOWER THORACIC, LUMBAR, CANDE SI, OR L GREATER TROCH REGION PAIN. OTHER: POSITIVE L CARMEN TEST. PATIENT IS ABLE TO SLS ON THE R LE X > 5 SEC BUT ONLY ABLE TO SLS ON THE L LE X 2 SEC WITHOUT UE ASSIST. Balance/Special Test Scores Oswestry Low Back Score: 14 Goals Goal 1:: DECREASE C/O L LOW BACK AND L LE SX'S BY AT LEAST 50% TO EASE ADL'S Goal Time Frame: 4-6 Weeks Goal 2:: INCREASE PAINFREE L HIP ROM TO EASE ADL'S. Goal Time Frame: 4-6 Weeks Goal 3:: INCREASE L LE STENGTH BY AT LEAST 1 M. GRADE TO EASE ADL'S. Goal Time Frame: 4-6 Weeks Goal 4:: PATIENT WILL SCORE AT LEASE 5 POINTS BETTER ON BACK OSWESTRY QUESTIONNAIRE Goal Time Frame: 4-6 Weeks Goal 5:: PATIENT WILL BE INDEP WITH A HEP FOR CONTINUED IMPROVEMENT ONCE FORMAL PHYSICAL THERAPY CONCLUDES. Goal Time Frame: 4-6 Weeks Goal 6:: INDEP GAIT ON LEVEL SURFACES WITHOUT AD AND UP AND DOWN STEPS RECIP WITH ONE HR WITHOUT PAIN OR LIMITATION. Goal Time Frame: 4-6 Weeks Rehabilitation Potential Physical Therapy Diagnosis: THIS PATIENT PRESENTS TO PT WITH CHIEF C/O L BUTTOCK, HIP AND GROIN PAIN THAT RADIATES DOWN HER LEG TO HER WALKER MAKING IT DIFFICULT TO STAND, WALK, GET IN AND OUT OF THE CAR AND SLEEP. SHE PRESENTS WITH GAIT ABNORMALITY, CORE WEAKNESS, TRUNK HYPOMOBILITY, L LE WEAKNESS AND STIFFNESS. Rehabilitation Potential: Fair Anticipated Interventions Patient/Client Instruction: Educate patient on: Condition, Plan of Care and Risk Factors For the Purpose of:: To improve self management Therapeutic Exercise to Include: Strength training, Body mechanics, Postural training, Flexibilty training, Neuromotor development, In an aquatic setting and Dynamic Lumbar Stabilization For the Purpose of:: To decrease pain, To increase ROM, To improve muscle performance and motor function, To increase tolerance to activity/condition/position, To improve ability of physical actions for home/community/work/leisure, To improve gait and locomotor functions and To increase flexibility/ROM Cryotherapy (ice pack, ice massage): Yes Thermo therapy (hot pack): Yes Ultrasound (thermal/non thermal): Yes For the Purpose of:: To decrease pain and To improve nutrient delivery to tissue Text: Thank you for the opportunity to evaluate your patient. For Medicare and Medicare HMO plans, please review the plan of care and approve it. It will need to be FAXED BACK to us at [phone] for Medicare purposes. For Medicare only, by signing this I certify the plan of care. Please let me know if there are questions or concerns regarding this plan of care. Physician Signature: Date:
--- NOTE | 2023-06-29 14:46 | HP.PTREVAL ---
Re-Evaluation Intro: SRINIVAS GUADARRAMA, It has been my pleasure to treat ERLINDA MOHAN over the last 2 visits for CHRONIC LBP, LUMBAR RADIC AND L BUTTOCK PAIN. Please see the progress note below for an update on the physical therapy plan of care! Subjective Subjective: PATIENT REPORTS SHE IS STILL HAVING BACK AND L HIP PAIN. SHE STATES SHE HAD TO GO TO [place] TO HELP HER SISTER AND THAT IS WHY SHE HAD TO DELAY STARTING PT. SHE REPORTS HER HIP HAS BEEN REALLY HURTING MAKING IT DIFFICULT TO WALK. SHE REPORTS SHE HAS BEEN GETTING IN THE POOL AT HER SISTERS AND DOING EX'S SHE LEARNED AT THE [facility] A COUPLE YEARS AGO AND SHE DOES FEEL BETTER TEMPORARILY AFTER DOING THEM. NO USING ANY AD'S. GOING TO SEE PCP 07/11/23. STATES SHE TALKED TO HER PCP'S NURSE 06/27/23 AND THEY TOLD HER TO FOLLOW THROUGH WITH HER PHYSICAL THERAPY FOR AT LEAST 4 VISITS BEFORE SEEING THE DOCTOR 07/11/23. Objective Objective/Function: PATIENT WAS SEEN TODAY FOR RE-ASSESSMENT OF PROGRESS TOWARD THE SET PT GOALS AND THE NEED FOR FURTHER PHYSICAL THERAPY VS READINESS FOR DISCHARGE. UPON EXAM TODAY THERE ARE NO SIGNIFICANT CHANGES SINCE INITIAL EVAL: Sitting/Standing Posture: SCOLIOSIS. L ILIAC CREST HIGHER THAN R. INCREASED LORDOSIS. ANTERIOR PELVIC TILT. Active Correction of posture: UNABLE TO CORRECT. ATTEMPTS HAVE NE ON PAIN. Other Observations: THIS PATIENT AMBULATES INDEP'LY INTO PHYSICAL THERAPY WITH INCREASED TRUNK FLEXION WITHOUT ANY AD'S LIMPING ON HER LLE. SHE IS UNABLE TO TRANSFER SIT TO STAND WITHOUT UE ASSIST. Sensory deficit: CANDE LE LIGHT TOUCH SENSATION IS GROSSLY INTACT AND SYMMETRICAL EXCEPT DECREASED LIGHT TOUCH L LATERAL KNEE. ROM deficit: LIMITED AND PAINFUL L HIP FLEXION AND IR COMPARED TO THE R. PATIENT IS ONLY ABLE TO FLEX L HIP TO APPROX 90 DEG AND IR LEFT HIP 50% FAR R HIP. PATIENT ALSO HAS DECREASED L HIP ACTIVE ABD COMPARED TO RIGHT. Motor deficit: R HIP 4/5, KNEE 4/5, ANKLE 5/5. L HIP FLEX 3-/5, ABD 3-/5. KNEE EXT 3-/5, KNEE FLEX 4-/5, ANKLE DORSI FLEX 5/5. Dural Signs: NEGATIVE CANDE LE'S. Lumbar mvmt loss: flex - MIN - NE ext - TRACI R SG - TRACI - P R LBP - NW L SG - TRACI - NE Core strength: POOR Palpation: NO ACUTE LOWER THORACIC, LUMBAR, CANDE SI, OR L GREATER TROCH REGION PAIN. OTHER: POSITIVE L CARMEN TEST. PATIENT IS ABLE TO SLS ON THE R LE X > 5 SEC BUT ONLY ABLE TO SLS ON THE L LE X 2 SEC WITHOUT UE ASSIST. Plan Plan Plan: 2-3 TIMES A WK X 4-6 VISITS. GAIT TRAINING. POSTURE TRAINING. CORE STRENGTHEING. L LE ROM, STRETCHING AND STRENGTHEING. LOW BACK AND/OR HIP MODALITIES NEEDED FOR PAIN AND INFLAMMATION. Balance/Gait/Functional tests Balance/Special Test Scores Oswestry Low Back Score: 14 Goals Goals Goal 1:: DECREASE C/O L LOW BACK AND L LE SX'S BY AT LEAST 50% TO EASE ADL'S Goal Time Frame: 4-6 Weeks Goal 2:: INCREASE PAINFREE L HIP ROM TO EASE ADL'S. Goal Time Frame: 4-6 Weeks Goal 3:: INCREASE L LE STENGTH BY AT LEAST 1 M. GRADE TO EASE ADL'S. Goal Time Frame: 4-6 Weeks Goal 4:: PATIENT WILL SCORE AT LEASE 5 POINTS BETTER ON BACK OSWESTRY QUESTIONNAIRE Goal Time Frame: 4-6 Weeks Goal 5:: PATIENT WILL BE INDEP WITH A HEP FOR CONTINUED IMPROVEMENT ONCE FORMAL PHYSICAL THERAPY CONCLUDES. Goal Time Frame: 4-6 Weeks Goal 6:: INDEP GAIT ON LEVEL SURFACES WITHOUT AD AND UP AND DOWN STEPS RECIP WITH ONE HR WITHOUT PAIN OR LIMITATION. Goal Time Frame: 4-6 Weeks Anticipated Interventions Anticipated Interventions Patient/Client Instruction: Educate patient on: Condition, Plan of Care and Risk Factors For the Purpose of:: To improve self management Therapeutic Exercise to Include: Strength training, Body mechanics, Postural training, Flexibilty training, Neuromotor development, In an aquatic setting and Dynamic Lumbar Stabilization For the Purpose of:: To decrease pain, To increase ROM, To improve muscle performance and motor function, To increase tolerance to activity/condition/position, To improve ability of physical actions for home/community/work/leisure, To improve gait and locomotor functions and To increase flexibility/ROM Cryotherapy (ice pack, ice massage): Yes Thermo therapy (hot pack): Yes Ultrasound (thermal/non thermal): Yes For the Purpose of:: To decrease pain and To improve nutrient delivery to tissue Re-Evaluation Ending Re-evaluation ending: Please do not hesitate to contact me at [phone] by phone or if you have questions or concerns regarding this new plan of care! Sincerely, Lala Yun, PT, Cert MDT
--- NOTE | 2023-07-06 12:30 | HP.PTDCSUM ---
Discharge Summary D/C summary: It has been my pleasure to treat ERLINDA MOHAN referred by SRINIVAS GUADARRAMA, with the diagnosis of CHRONIC LBP, LUMBAR RADIC AND L BUTTOCK PAIN for a total of 5 visit(s). Discharge Date: 07/06/23 Please see the following information for a summary of their discharge status. Subjective Subjective: PATIENT REPORTS HER BACK HAS BEEN DOING PRETTY GOOD. PATIENT REPORTS HER L HIP PAIN IS STAYING ABOUT THE SAME OVER-ALL BUT SHE IS HAVING A LITTLE LESS PAIN WALKING THE LAST FEW DAYS. SHE REPORTS COMPLIANCE WITH HEP AND IS WONDERING IF THEY MIGHT ACTUALLY BE HELPING HER HIP. PATIENT REPORTS SHE IS GOING TO SEE HER PCP DR. ROBERSON TUESDAY AND IS HOPING TO BE REFERRED TO AN ORTHO SPECIALIST TO HAVE HER HIP LOOKED AT OR AT LEAST GET SOME TESTING ON HER HIP. Pain LOW BACK: Pain Intensity (Out of 10): 0 L HIP: Pain Intensity (Out of 10): 6 Overall Improvement % Improvement: 10 Objective Objective/Function: THIS PATIENT IS NOW INDEP WITH A HEP AND HAS HAD SOME IMPROVEMENT IN HER L HIP PAIN, ROM AND STRENGTH BUT NO SIGNIFICANT CHANGE IN HER BACK. SHE REPORTS LITTLE OVER-ALL CHANGE IN HER L HIP PAIN BUT SHE PLANS TO CONTINUE HER EX'S IN WITH THE HOPE THAT THEY WILL HELP MORE WITH TIME. SHE AMBULATES INDEP'LY INTO PHYSICAL THERAPY TODAY WITH INCREASED TRUNK FLEXION WITHOUT ANY AD'S AND A MILD LIMP ON HER LLE. SHE IS UNABLE TO TRANSFER SIT TO STAND WITHOUT UE ASSIST. Sensory deficit: CANDE LE LIGHT TOUCH SENSATION IS GROSSLY INTACT AND SYMMETRICAL EXCEPT DECREASED LIGHT TOUCH L LATERAL KNEE. ROM deficit: LIMITED AND PAINFUL L HIP FLEXION AND IR COMPARED TO THE R. PATIENT IS ONLY ABLE TO FLEX L HIP TO APPROX 100 DEG AND IR LEFT HIP 70% FAR R HIP. PATIENT ALSO HAS DECREASED L HIP ACTIVE ABD COMPARED TO RIGHT. Motor deficit: R HIP 4/5, KNEE 4/5, ANKLE 5/5. L HIP FLEX 3+/5, ABD 3+/5. KNEE EXT 4-/5, KNEE FLEX 4-/5, ANKLE DORSI FLEX 5/5. Dural Signs: NEGATIVE CANDE LE'S. Lumbar mvmt loss: flex - MIN - NE ext - TRACI R SG - TRACI - P R LBP - NW L SG - TRACI - NE Core strength: POOR Palpation: NO ACUTE LOWER THORACIC, LUMBAR, CANDE SI, OR L GREATER TROCH REGION PAIN. OTHER: POSITIVE L CARMEN TEST. PATIENT IS ABLE TO SLS ON THE R LE X > 5 SEC BUT ONLY ABLE TO SLS ON THE L LE X 2 SEC WITHOUT UE ASSIST. Goals Goal 1:: DECREASE C/O L LOW BACK AND L LE SX'S BY AT LEAST 50% TO EASE ADL'S Goal Progress: Not Progressing Goal 2:: INCREASE PAINFREE L HIP ROM TO EASE ADL'S. Goal Progress: Progressing Goal 3:: INCREASE L LE STENGTH BY AT LEAST 1 M. GRADE TO EASE ADL'S. Goal Progress: Progressing Goal 4:: PATIENT WILL SCORE AT LEASE 5 POINTS BETTER ON BACK OSWESTRY QUESTIONNAIRE Goal Progress: Not Progressing Goal 5:: PATIENT WILL BE INDEP WITH A HEP FOR CONTINUED IMPROVEMENT ONCE FORMAL PHYSICAL THERAPY CONCLUDES. Goal Progress: Progressing Goal 6:: INDEP GAIT ON LEVEL SURFACES WITHOUT AD AND UP AND DOWN STEPS RECIP WITH ONE HR WITHOUT PAIN OR LIMITATION. Goal Progress: Not Progressing Plan Plan: D/C TO INDEP HEP. PATIENT AGREEABLE. D/C Information d/c sentence: If there are questions or concerns regarding this patient's physical therapy, please feel free to call me at [phone]. Thank you for the referral of this patient. Sincerely, Lala Yun, PT, Cert MDT Balance/Gait/Functional tests Balance/Special Test Scores Oswestry Low Back Score: 20 Improvement % Improvement: 10
== END 2023-07-06 19:00 | disposition home or self-care (01) ==
LOC: PT 10:00
PROVIDERS: PCP General Practice
DX: M79.18 Myalgia, other site (principal); M54.16 Radiculopathy, lumbar region; M54.50 Low back pain, unspecified; G89.29 Other chronic pain
CPT/HCPCS: 97110; 97162; 97164; 97530

== ENCOUNTER → 2023-12-23 | Outpatient (CLI) | payer MEDICARE, SELFPAY ==
--- OUTSIDE RECORDS SUMMARY | 2023-12-23 17:50 | XMS RPT_ITS | CCD ---
Author Organization [facility] Care Team Providers Care Prenatal Teacher Name Role Phone Silvia Pradhan Unavailable Unavailable Silvia Pradhan Unavailable Unavailable Pramod Garcia Unavailable Unavailable Silvia Pradhan Unavailable Unavailable Unavailable Silvia Pradhan MD Unavailable Unavailable Silvia Pradhan Unavailable Unavailable Silvia Pradhan Primary Care Provider Cody Noe MD Unavailable Unavailable Cyril Bill MD Unavailable Silvia Pradhan Primary Care Provider Cody Noe MD Unavailable Unavailable Cyril Bill MD Unavailable Lorne, Dr. Silvia Denson Referring Unavailabl e Lorne, Dr. Silvia Denson Attending Unavailabl e Lorne, Dr. Silvia Denson Primary Care Unavailabl e Lorne, Dr. Silvia Denson Primary Care Unavailabl e Lorne, Dr. Silvia Denson Referring Unavailabl e Lorne, Dr. Silvia Denson Attending Unavailabl e Silvia Pradhan MD Primary Care Provider Silvia Pradhan MD Unavailable Silvia Pradhan MD Primary Care Provider Cody Noe MD Unavailable Unavailable Cyril Bill MD Unavailable SILVIA PRADHAN Primary Care Unavailable LIANE RIOS Referring Unavailable SILVIA PRADHAN Primary Care Unavailable Silvia Pradhan MD Primary Care Provider PROVIDER, UNKNOWN Referring Unavailable LORNE, JACINTA Primary Care Unavailable LORNE, JACINTA Primary Care Unavailable LORNE, JACINTA Primary Care Unavailable LORNE, JACINTA Primary Care Unavailable SRINIVAS GUADARRAMA Referring Unavailable SRINIVAS GUADARRAMA Attending Unavailable LORNE, JACINTA Primary Care Unavailable SHOBHA PATEL Attending Unavailable KANIKA ALEMAN Attending Unavailab le LORNE, SILVIA DENSON Primary Care Unavailable LORNESILVIA Attending Unavailable LORNE, SILVIA DENSON Primary Care Unavailable LORNE, SILVIA DENSON Attending Unavailable LORNE, JACINTA Primary Care Unavailable Allergies Allergy Classification Reported Allergen(s) Allergy Type Date of Onset Reaction(s) Facility Aspirin (3 sources) Aspirin; Translations: [Aspirin TABS] Drug Allergy Wheezing [facility] Work Phone: (20 sources) Aspirin; Translations: [Aspirin TABS] Drug Allergy 0 Wheezing, Shortness of Breath [facility] (19 sources) Milk, Cow Allergy to substance (finding) [facility] Work Phone: (20 sources) Lactase; Translations: [LACTASE] Drug Allergy 2 Diarrhea [facility] (5 sources) Aspirin; Translations: [ASPIRIN] Drug Allergy 0 [facility] Other [place] [facility] Medications Current Medications Medication Drug Class(es) Dates Sig (Normalized) Sig (Original) alendronic acid 70 mg oral tablet (20 sources) Bisphosphonate Start: 10-20-2022 End: 07-11-2023 alendronate (Fosamax) 70 mg tablet Indications: Osteopenia, unspecified location Take 1 tablet (70 mg) by mouth every 7 days. 12 tablet 3 07/11/2023 Active Start: 05-30-2020 take 1 tablet by dashawn th every week Alendronate Sodium 70 MG Oral Tablet TAKE 1 TABLET ONCE WEEKLY. Quantity: 12 Refills: 1 Ordered: 18-Jan-2022 Silvia Pradhan MD Start : 30-May-2020 Active Start: 05-30-2020 End: 08-02-2022 alendronate (Fosamax) 70 mg tablet Indications: Osteopenia, unspecified location Take 1 tablet (70 mg) by mouth every 7 days. 12 tablet 3 08/02/2022 Active Comment on above: Take 70 mg by mouth one time a week. In AM with cup of water on empty stomach. Nothing else by mouth and stay upright for 30 min. Ascorbic Acid (16 sources) Vitamin C take 1 tablet by mouth once daily ascorbic acid (VITAMIN C ORAL) Take 1 tablet by mouth once daily. Active take 1 tablet by mouth once nitin y ascorbic acid (VITAMIN C ORAL) Take 1 tablet by mouth once daily. 0 Active Comment on above: Take 1 tablet by dashawn th once daily. cephalexin 250 mg oral capsule (13 sources) Cephalosporin Antibacterial Start: 3 take 1 capsule by mouth once daily at bedtime cephALEXin (KEFLEX) 250 mg capsule Take 250 mg by mouth daily at bedtime. 08/04/2022 Active Comment on above: Take 250 mg by mouth daily at bedtime. cholecalciferol, vitamin D3, (VITAMIN D3 ORAL) (16 sources) take 1000 [IU] by mouth once daily cholecalciferol, vitamin D3, (VITAMIN D3 ORAL) Take 1,000 Units by mouth once daily. Active take 1000 [IU] by mouth once arturo ly cholecalciferol, vitamin D3, (VITAMIN D3 ORAL) Take 1,000 Units by mouth once daily. 0 Active Comment on above: Take 1,000 Units by mouth once daily. cranberry fruit extract (CRANBERRY ORAL) (16 sources) take 1 tablet by mouth once daily cranberry fruit extract (CRANBERRY ORAL) Take 1 tablet by mouth once daily. Active take 1 tablet by mouth once nitin y cranberry fruit extract (CRANBERRY ORAL) Take 1 tablet by mouth once daily. 0 Active Comment on above: Take 1 tablet by dashawn th once daily. diphenhydrAMINE hydrochloride 10 mg oral tablet (16 sources) Histamine-1 Receptor Antagonist diphenhydramine HCl (ANTIHISTAMINE ORAL) Take 10 mg by mouth as needed. Active Comment on above: Take 10 mg by mouth as needed. Folic Acid (16 sources) take 1 tablet by mouth once daily FOLIC ACID ORAL Take 1 tablet by mouth once daily. Active take 1 tablet by mouth once nitin y FOLIC ACID ORAL Take 1 tablet by mouth once daily. 0 Active Comment on above: Take 1 tablet by dashawn th once daily. gabapentin 300 mg oral capsule (6 sources) Anti-epileptic Agent Start: 04-26-2023 End: 07-25-2023 take 1 capsule by mouth three times daily gabapentin (NEURONTIN) 300 mg capsule Indications: neuropathic pain Take 1 capsule by mouth three times a day for 90 days. 90 capsule 2 04/26/2023 Active Comment on above: Take 1 capsule by [facility] three times a day for 90 days. ginkgo biloba extract 120 mg oral capsule (16 sources) take 120 mg by mouth once daily ginkgo biloba (GINKOBA ORAL) Take 120 mg by mouth once daily. Active take 120 mg by mouth once daily ginkgo biloba (GINKOBA ORAL) Take 120 mg by mouth once daily. 0 Active Comment on above: Take 120 mg by mouth once daily. Lactobacillus acidophilus (16 sources) take 1 capsule by mouth once daily Lactobacillus acidophilus (PROBIOTIC ORAL) Take 1 capsule by mouth once daily. Active take 1 capsule by mouth once arturo ly Lactobacillus acidophilus (PROBIOTIC ORAL) Take 1 capsule by mouth once daily. 0 Active Comment on above: Take 1 capsule by [facility] once daily. levothyroxine sodium 0.125 mg oral tablet (20 sources) l-Thyroxine Start: 05-01-19 11 End: 07-11-19 25 take 1 tablet by mouth once daily SYNTHROID 125 mcg ORAL tablet Take 125 mcg by mouth once daily. 04/30/2010 Active Comment on above: Take 125 mcg by [facility] once daily. lutein 20 mg oral tablet (16 sources) take 1 tablet by mouth once daily lutein 20 mg tab Take 1 tablet by mouth once daily. Active Comment on above: Take 1 tablet by [facility] once daily. metoprolol tartrate 50 mg oral tablet (20 sources) beta-Adrenergic Shruthi Start: 05-29-19 11 End: 07-11-19 24 take 1 tablet by mouth once daily METOPROLOL TARTRATE 50 mg ORAL tablet Take 50 mg by mouth once daily. 05/28/2010 Active Comment on above: Take 50 mg by mouth once daily. metroNIDAZOLE 500 mg oral tablet (14 sources) Nitroimidazole Antimicrobial Start: 10-31-19 22 take 1 tablet by mouth twice daily metroNIDAZOLE (FLAGYL) 500 mg tablet Take 500 mg by mouth twice daily. 10/30/2021 Active Comment on above: Take 500 mg by mouth twice daily. multivitamin tablet (14 sources) take 1 tablet by mouth once daily multivitamin tablet Take 1 tablet by mouth once daily. Active take 1 tablet by mouth once nitin y multivitamin tablet Take 1 tablet by mouth once daily. 0 Active Comment on above: Take 1 tablet by dashawn th once daily. naproxen 500 mg oral tablet (1 source) Nonsteroidal Anti-inflammatory Drug Start: 4 End: 4 take 1 tablet by mouth twice daily at mealtime naproxen (NAPROSYN) 500 mg tablet Take 1 tablet by mouth two times a day with meals. 60 tablet 1 07/13/2023 09/11/2023 Active sertraline 50 mg oral tablet (20 sources) Serotonin Reuptake Inhibitor Start: 6 End: 4 take 1 tablet by mouth once daily sertraline (ZOLOFT) 50 mg tablet Take 50 mg by mouth once daily. 03/11/2016 Active Comment on above: Take 50 mg by mouth once daily. Completed/Discontinued Medications Medication Drug Class(es) Dates Sig (Normalized) Sig (Original) betamethasone 0.5 mg/ml topical cream (2 sources) Corticosteroid Start: 01-15-2019 Betamethasone Dipropionate 0.05 % External Cream Quantity: 45 Refills: 0 Start : 15-Jan-2019 Active 5 ml bupivacaine hydrochloride 2.5 mg/ml injection (1 source) Amide Local Anesthetic Start: 11-26-2022 End: 11-26-2022 bupivacaine (PF) 0.25 % (2.5 mg/mL) 4 mL injection (SENSORCAINE MPF) ciprofloxacin 250 mg oral tablet (4 sources) Quinolone Antimicrobial Start: 10-13-2020 take 1 tablet by mouth once daily Ciprofloxacin HCl - 250 MG Oral Tablet TAKE 1 TABLET EVERY 12 HOURS DAILY. Quantity: 14 Refills: 0 Ordered: 13-Oct-2020 Silvia Pradhan MD Start : 13-Oct-2020 Active multivitamin (DAILY MULTIPLE) tablet (2 sources) take 1 tablet by mouth once daily multivitamin (DAILY MULTIPLE) tablet Take 1 tablet by mouth once daily. 0 Active Comment on above: Take 1 tablet by dashawn th once daily. nitrofurantoin, macrocrystals 100 mg oral capsule (1 source) Nitrofuran Antibacterial Start: 08-05-2018 take 1 capsule by mouth once daily Nitrofurantoin Macrocrystal 100 MG Oral Capsule TAKE 1 CAPSULE EVERY 12 HOURS DAILY. Quantity: 14 Refills: 0 Pramod Garcia MD Start : 05-Aug-2018 Active sulfamethoxazole 800 mg / trimethoprim 160 mg oral tablet (5 sources) Dihydrofolate Reductase Inhibitor Antibacterial, Sulfonamide Antimicrobial Start: 08-12-2020 take 1 tablet by mouth twice daily Sulfamethoxazole-T rimethoprim 800-160 MG Oral Tablet 1 tab bid x 5 days Quantity: 10 Refills: 0 Ordered: 12-Aug-2020 Silvia Pradhan MD Start : 12-Aug-2020 Active tiZANidine 4 mg oral tablet (9 sources) Central alpha-2 Adrenergic Agonist Start: 04-21-2023 End: 04-26-2023 take 1 tablet by mouth twice daily as needed tiZANidine (ZANAFLEX) 4 mg tablet Indications: muscle spasm Take 1 tablet by mouth two times a day as needed. 30 tablet 0 04/21/2023 04/26/2023 Discontinued (Course of therapy completed) Start: 08-18-2022 End: 04-21-2023 take 1 tablet by mouth every eight hours as needed tiZANidine (ZANAFLEX) 4 mg tablet Indications: Left buttock pain Take 1 tablet by mouth every 8 hours as needed. 30 tablet 0 08/18/2022 04/21/2023 Discontinued (Course of therapy completed) Comment on above: Take 1 tablet by dashawn th every 8 hours as needed. Take 1 tablet by dashawn th two times a day as needed. 1 ml triamcinolone acetonide 40 mg/ml injection (1 source) Corticosteroid Start: 11-26-2022 End: 11-26-2022 triamcinolone acetonide 80 mg injection (KeNALog 40) Problems Active Problems Problem Classification Problem Date Documented Da te Episodic/Chronic Diseases of white blood cells (20 sources) Leukopenia; Translations: [Leukocytopenia, unspecified] Onset: 08-02-2022 08-02-2022 Chronic Disorders of lipid metabolism (20 sources) Hyperlipidemia; Translations: [Other and unspecified hyperlipidemia] Onset: 08-02-2022 08-02-2022 Chronic Essential hypertension (20 sources) Hypertensive disorder; Translations: [Unspecified essential hypertension] Onset: 03-15-2017 03-15-2017 Chronic Immunizations and screening for infectious disease (2 sources) Patient encounter status; Translations: [Other specified vaccination] Episodic Mood disorders (20 sources) Depressive disorder; Translations: [Depressive disorder, not elsewhere classified] Onset: 08-02-2022 02-01-2020 Chronic Comment on above: Depression; Depression, major, s annamarie episode, mild; Osteoarthritis (17 sources) Osteoarthritis of left knee joint; Translations: [Unilateral primary osteoarthritis, left knee] Onset: 04-17-2015 04-17-2015 Chronic Other bone disease and musculoskeletal deformities (20 sources) Osteopenia; Translations: [Disorder of bone and cartilage, unspecified] Onset: 08-02-2022 08-02-2022 Episodic Other circulatory disease (20 sources) H/O: hypertension; Translations: [Personal history of other diseases of circulatory system] Episodic Other connective tissue disease (2 sources) Pain in buttock; Translations: [Myalgia, other site] 04-21-2023 Episodic Other connective tissue disease (1 source) Trochanteric bursitis of left hip; Translations: [Trochanteric bursitis, left hip] 07-13-2023 Episodic Other ear and sense organ disorders (17 sources) Hearing loss; Translations: [Unspecified hearing loss, unspecified ear] 02-01-2020 Chronic Other nervous system disorders (1 source) Other chronic pain; Translations: [Chronic left shoulder pain] Onset: 11-25-2022 Chronic Other non-traumatic joint disorders (2 sources) Chronic pain of left upper limb; Translations: [Pain in left shoulder] 11-15-2022 Episodic Other non-traumatic joint disorders (2 sources) Pain in left shoulder; Translations: [Pain in joint, shoulder region] Onset: 11-25-2022 11-26-2022 Episodic Other non-traumatic joint disorders (2 sources) Hip pain; Translations: [Pain in left hip] 07-13-2023 Episodic Other non-traumatic joint disorders (1 source) Pain in left hip; Translations: [Pain in left hip] Onset: 07-13-2023 Episodic Other nutritional; endocrine; and metabolic disorders (4 sources) Obesity; Translations: [Obesity, unspecified] Chronic Other nutritional; endocrine; and metabolic disorders (20 sources) H/O: hypothyroidism; Translations: [Personal history of other endocrine, metabolic, and immunity disorders] Episodic Other upper respiratory infections (20 sources) Chronic sinusitis; Translations: [Sinusitis] Onset: 08-02-2022 08-02-2022 Chronic Otitis media and related conditions (1 source) Bilateral disorder of Eustachian tubes; Translations: [Unspecified Eustachian tube disorder, bilateral] Episodic Residual codes; unclassified (6 sources) Postmenopausal state; Translations: [Asymptomatic postmenopausal status (age-related) (natural)] Episodic Residual codes; unclassified (2 sources) Pain; Translations: [Pain, unspecified] 10-25-2022 Episodic Residual codes; unclassified (1 source) Pain, unspecified; Translations: [Pain] Onset: 07-13-2023 Episodic Thyroid disorders (20 sources) Hypothyroidism; Translations: [Unspecified acquired hypothyroidism] Onset: 08-02-2022 08-02-2022 Chronic Unclassified (1 source) Screening Onset: 12-23-2022 Past or Other Problems Problem Classification Problem Date Documented Da te Episodic/Chronic Abdominal hernia (3 sources) Umbilical hernia; Translations: [Umbilical hernia without obstruction or gangrene] Onset: 03-09-2017 Resolved: 02-01-2020 02-01-2020 Episodic Abdominal pain (20 sources) Abdominal discomfort; Translations: [Abdominal pain, unspecified site] Onset: 03-09-2017 Resolved: 02-01-2020 08-02-2022 Episodic Cardiac dysrhythmias (16 sources) Bradycardia; Translations: [Bradycardia, unspecified] Onset: 03-17-2017 03-17-2017 Episodic Genitourinary symptoms and ill-defined conditions (20 sources) Dysuria; Translations: [Dysuria] Onset: 08-02-2022 08-02-2022 Episodic Mycoses (20 sources) Candidiasis of skin; Translations: [Candidiasis of skin and nails] Onset: 08-02-2022 08-02-2022 Episodic Other bone disease and musculoskeletal deformities (20 sources) Disorder of bone; Translations: [Disorder of bone and cartilage, unspecified] Onset: 08-02-2022 08-02-2022 Episodic Other bone disease and musculoskeletal deformities (2 sources) Other specified disorders of bone density and structure, unspecified site; Translations: [Other specified disorders of bone density and structure, unspecified site] Onset: 08-02-2022 Episodic Other connective tissue disease (20 sources) Tendinitis; Translations: [Enthesopathy of unspecified site] Onset: 08-02-2022 08-02-2022 Episodic Other connective tissue disease (20 sources) Pain in upper limb; Translations: [Pain in limb] Onset: 08-02-2022 08-02-2022 Episodic Other non-traumatic joint disorders (3 sources) Pain in right knee; Translations: [Pain in joint, lower leg] Onset: 01-28-2010 Resolved: 03-15-2017 03-15-2017 Episodic Other non-traumatic joint disorders (3 sources) Pain in left knee; Translations: [Pain in joint, lower leg] Onset: 09-10-2014 Resolved: 02-01-2020 02-01-2020 Episodic Other screening for suspected conditions (not mental disorders or infectious disease) (20 sources) Mammography abnormal; Translations: [Patient encounter status] Onset: 08-02-2022 08-02-2022 Episodic Other skin disorders (20 sources) Inflammatory dermatosis; Translations: [Contact dermatitis and other eczema, unspecified cause] Onset: 08-02-2022 08-02-2022 Episodic Other upper respiratory infections (20 sources) Acute upper respiratory infection; Translations: [Acute sinusitis] Onset: 08-02-2022 08-02-2022 Episodic Comment on above: Added by Problem Lis t Migration; 2012-04-25; Moved to [facility] Jan 22 2013 9:15PM; Spondylosis; intervertebral disc disorders; other back problems (20 sources) Backache; Translations: [Backache, unspecified] Onset: 08-02-2022 08-02-2022 Episodic Thyroid disorders (16 sources) Disorder of thyroid gland; Translations: [Disorder of thyroid, unspecified] Onset: 03-15-2017 03-15-2017 Episodic Unclassified (8 sources) Patient encounter status; Translations: [Screening for cancer of the rectum] Unclassified (3 sources) Onset: 08-02-2022 Resolved: 07-11-2023 08-02-2022 Urinary tract infections (20 sources) Acute urinary tract infection; Translations: [Urinary tract infection, site not specified] Onset: 08-02-2022 08-02-2022 Episodic NEGATED: Highlighted row has not occurred!Residual codes; unclassified (20 sources) Disease Episodic Results Test Name Value Interpretation Reference Range Facility CBC W Auto Differential pane l (Bld)on 07-28-2023 Basophils (Bld) [#/Vol] 0.08 x10*3/uL Normal 0.00-0.10 [facility] Comment on above: Performed By: #### 5 7021-8 #### SEBASTIAN Grace ([id number]) [facility] ([facility]) [id number] [place] [address] 91467 Basophils/100 WBC (Bld) 1.3 % Normal 0.0-2.0 [facility] Comment on above: Performed By: #### 5 7021-8 #### SEBASTIAN Grace ([id number]) [facility] ([facility]) [id number] [place] [address] 77783 Eosinophils (Bld) [#/Vol] 0.76 x10*3/uL High 0.00-0.40 [facility] Comment on above: Performed By: #### 5 7021-8 #### SEBASTIAN Grace ([id number]) [facility] ([facility]) [address] [place] [address] 60775 Eosinophils/100 WBC (Bld) 12.1 % Normal 0.0-6.0 [facility] Comment on above: Performed By: #### 5 7021-8 #### SEBASTIAN Grace ([id number]) [facility] ([facility]) [address] [place] [address] 85593 Erythrocyte distribution width (RBC) [Ratio] 14.1 % Normal 11.5-14.5 [facility] Comment on above: Performed By: #### 5 7021-8 #### SEBASTIAN Grace ([id number]) [facility] ([facility]) [id number] [place] [address] 48989 Hematocrit (Bld) [Volume fraction] 40.5 % Normal 36.0-46.0 [facility] Comment on above: Performed By: #### 5 7021-8 #### SEBASTIAN Grace ([id number]) [facility] ([facility]) [id number] [place] [address] 33115 Hemoglobin (Bld) [Mass/Vol] 12.4 g/dL Normal 12.0-16.0 [facility] Comment on above: Performed By: #### 5 7021-8 #### SEBASTIAN Grace ([id number]) [facility] ([facility]) [id number] [place] [address] 40933 Immature granulocytes (Bld) [#/Vol] 0.02 x10*3/uL Normal 0.00-0.50 [facility] Comment on above: Performed By: #### 5 7021-8 #### SEBASTIAN Grace ([id number]) [facility] ([facility]) [address] [place] [address] 38475 Immature granulocytes/100 WBC (Bld) 0.3 % Normal 0.0-0.9 [facility] Comment on above: Result Comment: Brianna ture Granulocyte Count (IG) includes promyelocytes, myelocytes and metamyelocytes but does not include bands. Percent differential counts (%) should be interpreted in the context of the absolute cell counts (cells/UL). Performed By: #### 5 7021-8 #### SEBASTIAN Grace ([id number]) [facility] ([facility]) [id number] [place] [address] 46557 Lymphocytes (Bld) [#/Vol] 2.18 x10*3/uL Normal 0.80-3.00 [facility] Comment on above: Performed By: #### 5 7021-8 #### SEBASTIAN Grace ([id number]) [facility] ([facility]) [address] [place] [address] Lymphocytes/100 WBC (Bld) 34.7 % Normal 13.0-44.0 [facility] Comment on above: Performed By: #### 5 7021-8 #### SEBASTIAN Grace ([id number]) [facility] ([facility]) [id number] [place] [address] 70492 MCH (RBC) [Entitic mass] 29.7 pg Normal 26.0-34.0 [facility] Comment on above: Performed By: #### 5 7021-8 #### SEBASTIAN Grace ([id number]) [facility] ([facility]) [address] [place] [address] MCHC (RBC) [Mass/Vol] 30.6 g/dL Low 32.0-36.0 [facility] Comment on above: Performed By: #### 5 7021-8 #### SEBASTIAN Grace ([id number]) [facility] ([facility]) [address] [place] [address] MCV (RBC) [Entitic vol] 97 fL Normal 80-100 [facility] Comment on above: Performed By: #### 5 7021-8 #### SEBASTIAN Grace ([id number]) [facility] ([facility]) [id number] [place] [address] 52024 Monocytes (Bld) [#/Vol] 0.58 x10*3/uL Normal 0.05-0.80 [facility] Comment on above: Performed By: #### 5 7021-8 #### SEBASTIAN Grace ([id number]) [facility] ([facility]) [id number] [place] [address] 93251 Monocytes/100 WBC (Bld) 9.2 % Normal 2.0-10.0 [facility] Comment on above: Performed By: #### 5 7021-8 #### SEBASTIAN Grace ([id number]) [facility] ([facility]) [id number] [place] [address] 98349 Neutrophils (Bld) [#/Vol] 2.66 x10*3/uL Normal 1.60-5.50 [facility] Comment on above: Result Comment: Perc ent differential counts (%) should be interpreted in the context of the absolute cell counts (cells/uL). Performed By: #### 5 7021-8 #### SEBASTIAN Grace ([id number]) [facility] ([facility]) [address] [place] [address] Neutrophils/100 WBC (Bld) 42.4 % Normal 40.0-80.0 [facility] Comment on above: Performed By: #### 5 7021-8 #### SEBASTIAN Grace ([id number]) [facility] ([facility]) [address] [place] [address] Nucleated RBC/100 WBC (Bld) [Ratio] 0.0 /100 WBCs Normal 0.0-0.0 [facility] Comment on above: Performed By: #### 5 7021-8 #### SEBASTIAN Grace ([id number]) [facility] ([facility]) [id number] [place] [address] 69536 Platelets (Bld) [#/Vol] 279 x10*3/uL Normal 150-450 [facility] Comment on above: Performed By: #### 5 7021-8 #### SEBASTIAN Grace ([id number]) [facility] ([facility]) [address] [place] [address] 94796 RBC (Bld) [#/Vol] 4.18 x10*6/uL Normal 4.00-5.20 [facility] Comment on above: Performed By: #### 5 7021-8 #### SEBASTIAN Grace ([id number]) [facility] ([facility]) [address] [place] [address] 52530 WBC (Bld) [#/Vol] 6.3 x10*3/uL Normal 4.4-11.3 [facility] Comment on above: Performed By: #### 5 7021-8 #### SEBASTIAN Grace ([id number]) [facility] ([facility]) [id number] [place] [address] 48704 Comprehensive metabolic 2000 panelon 07-28-2023 Albumin BCP dye [Mass/Vol] 4.1 g/dL Normal 3.4-5.0 [facility] Comment on above: Performed By: #### 2 4323-8 #### SEBASTIAN Grace ([id number]) [facility] ([facility]) [id number] [place] [address] ALP [Catalytic activity/Vol] 55 U/L Normal 33-136 [facility] Comment on above: Performed By: #### 2 4323-8 #### SEBASTIAN Grace ([id number]) [facility] ([facility]) [address] [place] [address] ALT With P-5'-P [Catalytic activity/Vol] 10 U/L Normal 7-45 [facility] Comment on above: Result Comment: Macy ents treated with Sulfasalazine may generate falsely decreased results for ALT. Performed By: #### 2 4323-8 #### SEBASTIAN Grace ([id number]) [facility] ([facility]) [address] [place] [address] Anion gap [Moles/Vol] 12 mmol/L Normal 10-20 [facility] Comment on above: Performed By: #### 2 4323-8 #### SEBASTIAN Grace ([id number]) [facility] ([facility]) [address] [place] [address] AST With P-5'-P [Catalytic activity/Vol] 16 U/L Normal 9-39 [facility] Comment on above: Performed By: #### 2 4323-8 #### SEBASTIAN Grace ([id number]) [facility] ([facility]) [id number] [place] [address] Bilirubin [Mass/Vol] 0.4 mg/dL Normal 0.0-1.2 [facility] Comment on above: Performed By: #### 2 4323-8 #### SEBASTIAN Grace ([id number]) [facility] ([facility]) [address] [place] [address] Calcium [Mass/Vol] 9.4 mg/dL Normal 8.6-10.6 [facility] Comment on above: Performed By: #### 2 4323-8 #### SEBASTIAN PAGE L ([id number]) [facility] ([facility]) [address] [place] [address] Chloride [Moles/Vol] 107 mmol/L Normal 98-107 [facility] Comment on above: Performed By: #### 2 4323-8 #### SEBASTIAN PAGE L ([id number]) [facility] ([facility]) [address] [place] [address] CO2 [Moles/Vol] 28 mmol/L Normal 21-32 [facility] Comment on above: Performed By: #### 2 4323-8 #### SEBASTIAN Grace ([id number]) [facility] ([facility]) [address] [place] [address] Creatinine [Mass/Vol] 0.91 mg/dL Normal 0.50-1.05 [facility] Comment on above: Performed By: #### 2 4323-8 #### SEBASTIAN Grace ([id number]) [facility] ([facility]) [address] [place] [address] Glomerular filtration rate/1.73 sq M.predicted 65 mL/min/1.73m*2 Normal >60 [facility] Comment on above: Result Comment: Calc ulations of estimated GFR are performed using the 2020 CKD-EPI Study Refit equation without the race variable for the IDMS-Traceable creatinine methods. https://jasn.asnjournals.org/content//ASN.93078538 88 Performed By: #### 2 4323-8 #### SEBASTIAN Grace ([id number]) [facility] ([facility]) [address] [place] [address] Glucose [Mass/Vol] 98 mg/dL Normal 74-99 [facility] Comment on above: Performed By: #### 2 4323-8 #### SEBASTIAN Grace ([id number]) [facility] ([facility]) [address] [place] [address] Potassium [Moles/Vol] 4.2 mmol/L Normal 3.5-5.3 [facility] Comment on above: Performed By: #### 2 4323-8 #### SEBASTIAN Grace ([id number]) [facility] ([facility]) [address] [place] [address] Protein [Mass/Vol] 6.5 g/dL Normal 6.4-8.2 [facility] Comment on above: Performed By: #### 2 4323-8 #### SEBASTIAN Grace ([id number]) [facility] ([facility]) [address] [place] [address] Sodium [Moles/Vol] 143 mmol/L Normal 136-145 [facility] Comment on above: Performed By: #### 2 4323-8 #### SEBASTIAN Grace ([id number]) [facility] ([facility]) [address] [place] [address] Urea nitrogen [Mass/Vol] 23 mg/dL Normal 6-23 [facility] Comment on above: Performed By: #### 2 4323-8 #### SEBASTIAN Grace ([id number]) [facility] ([facility]) [address] [place] [address] Lipid 1996 panelon 4 Cholesterol [Mass/Vol] 230 mg/dL High 0-199 [facility] Comment on above: Result Comment: Age Desirable Borderline High High 0-19 Y 0 - 169 170 - 199 >/= 200 20-24 Y 0 - 189 190 - 224 >/= 225 >24 Y 0 - 199 200 - 239 >/= 240 All ranges are based on fasting samples. Specific therapeutic targets will vary based on patient-specific cardiac risk. Pediatric guidelines reference:Pediatrics 2011, 128(S5).Adult guidelines reference: NCEP ATPIII Guidelines,GRETCHEN 2001, 258:2486-97 Venipuncture immediately after or during the administration of Metamizole may lead to falsely low results. Testing should be performed immediately prior to Metamizole dosing. Performed By: #### 2 4331-1 #### SEBASTIAN Grace ([id number]) [facility] ([facility]) [address] [place] [address] Cholesterol in HDL [Mass/Vol] 50.0 mg/dL Normal [facility] Comment on above: Result Comment: Age Very Low Low Normal High 0-19 Y < 35 < 40 40-45 ---- 20-24 Y ---- < 40 >45 ---- >24 Y ---- < 40 40-60 >60 Performed By: #### 2 4331-1 #### SEBASTIAN Grace ([id number]) [facility] ([facility]) [address] [place] [address] Cholesterol in LDL [Mass/Vol] 162 mg/dL High <=99 [facility] Comment on above: Result Comment: Near Borderline AGE Desirable Optimal High High Very High 0-19 Y 0 - 109 --- 110-129 >/= 130 ---- 20-24 Y 0 - 119 --- 120-159 >/= 160 ---- >24 Y 0 - 99 100-129 130-159 160-189 >/=190 Performed By: #### 2 4331-1 #### SEBASTIAN Grace ([id number]) [facility] ([facility]) [address] [place] [address] Cholesterol in VLDL [Mass/Vol] 18 mg/dL Normal 0-40 [facility] Comment on above: Performed By: #### 2 4331-1 #### SEBASTIAN Grace ([id number]) [facility] ([facility]) [address] [place] [address] CHOLESTEROL/HDL RATIO 4.6 Normal [facility] Comment on above: Result Comment: Ref Values Desirable < 3.4 High Risk > 5.0 Performed By: #### 2 4331-1 #### SEBASTIAN Grace ([id number]) [facility] ([facility]) [address] [place] [address] NON HDL CHOLESTEROL 180 mg/dL High 0-149 [facility] Comment on above: Result Comment: Age Desirable Borderline High High Very High 0-19 Y 0 - 119 120 - 144 >/= 145 >/= 160 20-24 Y 0 - 149 150 - 189 >/= 190 ---- >24 Y 30 mg/dL above LDL Cholesterol goal Performed By: #### 2 4331-1 #### SEBASTIAN Grace ([id number]) [facility] ([facility]) [address] [place] [address] Triglyceride [Mass/Vol] 91 mg/dL Normal 0-149 [facility] Comment on above: Result Comment: Age Desirable Borderline High High Very High 0 D-90 D 19 - 174 ---- ---- ---- 91 D- 9 Y 0 - 74 75 - 99 >/= 100 ---- 10-19 Y 0 - 89 90 - 129 >/= 130 ---- 20-24 Y 0 - 114 115 - 149 >/= 150 ---- >24 Y 0 - 149 150 - 199 200- 499 >/= 500 Venipuncture immediately after or during the administration of Metamizole may lead to falsely low results. Testing should be performed immediately prior to Metamizole dosing. Performed By: #### 2 4331-1 #### SEBASTIAN Grace ([id number]) [facility] ([facility]) [address] [place] [address] TSH WITH REFLEX TO FREE T4 I F ABNORMALon 07-28-2023 TSH Qn 0.60 m[IU]/L Normal 0.44-3.98 [facility] Comment on above: Order Comment: TSH t esting is performed using different testing methodology at [facility] than at other [facility]. Direct result comparisons should only be made within the same method. Performed By: #### T HYDS #### SEBASTIAN Grace ([id number]) [facility] ([facility]) [address] [place], [place] [id number] CNOVon 07-13-2023 CNOV Office Visit (ORNA ) -------- RUKHSANAERLINDA KING ([id number]) 1945 F Date Time Provider Department 07/13/23 11:00 AM SHOBHA PATEL During your visit today, we recorded the following information about you: Shobha Patel PA-C 07/13/2023 11:42 AM Signed HISTORY OF PRESENT ILLNESS: Erlinda is a 78 year old female. She is here for follow up of Left hip pain. Pain has been going on since March 2022. Was being seen by Srinivas Guadarrama PA-C in the neurology department work up of lumbar spine and treatment with gabapentin, PT, and zanaflex has not been effective so far. She reports that hip abduction exercises seem to give her pain. Otherwise takes aleve which dulls the pain. Denies injury or trauma. Reports occasional radiation to the mid calf. 5/10 sharp, intermittent pain that is exacerbated with walking. Last visit with Neuro on 04/21/2023. At this visit lumbar involvement seemed to be less likely and the focus has shifted to possible hip pathology as a source of pain. Activities: walking Restriction: none Progression: Constant Previous treatment: medication (Aleve and Neurontin) and physical therapy (completed in the past) NSAIDS: Aleve and Ibuprofen PT:Musculoskeletal Physical Therapy MEDICATIONS Current Outpatient Medications on File Prior to Visit Medication Sig alendronate (FOSAMAX) 70 mg tablet Take 70 mg by mouth one time a week. In AM with cup of water on empty stomach. Nothing else by mouth and stay upright for 30 min. cephALEXin (KEFLEX) 250 mg capsule Take 250 mg by mouth daily at bedtime. ascorbic acid (VITAMIN C ORAL) Take 1 tablet by mouth once daily. cholecalciferol, vitamin D3, (VITAMIN D3 ORAL) Take 1,000 Units by mouth once daily. Lactobacillus acidophilus (PROBIOTIC ORAL) Take 1 capsule by mouth once daily. cranberry fruit extract (CRANBERRY ORAL) Take 1 tablet by mouth once daily. lutein 20 mg tab Take 1 tablet by mouth once daily. ginkgo biloba (GINKOBA ORAL) Take 120 mg by mouth once daily. diphenhydramine HCl (ANTIHISTAMINE ORAL) Take 10 mg by mouth as needed. multivitamin tablet Take 1 tablet by mouth once daily. sertraline (ZOLOFT) 50 mg tablet Take 50 mg by mouth once daily. SYNTHROID 125 mcg ORAL tablet Take 125 mcg by mouth once daily. METOPROLOL TARTRATE 50 mg ORAL tablet Take 50 mg by mouth once daily. gabapentin (NEURONTIN) 300 mg capsule Take 1 capsule by mouth three times a day for 90 days. metroNIDAZOLE (FLAGYL) 500 mg tablet Take 500 mg by mouth twice daily. FOLIC ACID ORAL Take 1 tablet by mouth once daily. (Patient not taking: Reported on 11/06/2021) No current facility-administered medications on file prior to visit. ALLERGIES ALLERGIES Allergen Reactions Aspirin Shortness of Breath And wheezy Dairy Aid [Lactase] Diarrhea PHYSICAL EXAM: PE: All other systems deferred. GENERAL: Appears healthy, well-nourished, no deformities. HABITUS: Obese GAIT: Normal, the patient did not have trouble getting onto the exam table. SKIN: Normal Left: (more difficult due to body habitus) ROM: Extension: slight flexion contracture Flexion: 100 degrees Internal Rotation: 20 degrees External Rotation: 35 degrees Abduction: 25 degrees Adduction: 20 degrees Strength: Abduction 5/5 and Flexion 5/5 Palpation: Tenderness over left greater trochanter Log roll: painful. Straight leg raise: Positive, reproducing hip symptoms Neurovascular Status: Sensation Intact, Moves foot and ankle up AND down, and 2+ dorsalis pedis RADIOGRAPHS (personally reviewed): left hip osteoarthritis MRI: none DIAGNOSIS Encounter Diagnosis ICD-10-CM 1. Pain in left hip M25.552 XR HIP GENERAL 3V PELV/AP/LAT LEFT 2. Primary osteoarthritis of left hip M16.12 CONSULT TO PHYSICAL THERAPY 3. Trochanteric bursitis of left hip M70.62 CONSULT TO PHYSICAL THERAPY PLAN Patient has left hip pain that can be attributed to OA and trochateric bursitis. Examination was made more difficult due to habitus, however we were able to examine fully. Pinpoint tenderness over left GT bursa and gluteal insertion. Groin pain elicited with rotational stress. We discussed the treatment options for this. We will have her start naprosyn 500mg BID and follow up with targeted therapy at the hip joint and stretching and strengthening of gluteal tendons and muscle. Follow up in 3 months to evaluate progress. May pursue cortisone injection in the future should her symptoms persist. I spent a total of 30 minutes on the date of the service which included preparing to see the patient, [id number] patient care, completing clinical documentation, obtaining and/or reviewing separately obtained history, performing a medically appropriate examination, counseling and educating the patient/family/caregiver , ordering medications, tests, or procedures, independently interpreting results (not sepa (more content not included)... Normal [facility] No Panel Informationon 07-12 Radiology Study observation (narrative) [facility] XR HIP 3V PELV+ AP/LAT LTon 07-13-2023 XR HIP 3V PELV+ AP/LAT LT * * *Final Report* * * DATE OF EXAM: Jul 13 2023 10:43AM JANA [id number] - XR HIP 3V PELV+ AP/LAT LT / PROCEDURE REASON: M25.552-Pain in left hip * * * * Physician Interpretation * * * * EXAM(s): XR HIP 3V PELV+ AP/LAT LT HISTORY: Indication: Pain in left hip TECHNIQUE: Images: XR HIP 3V PELV+ AP/LAT LT Comparison: None. RESULT: Findings: Pelvis: No fractures or dislocations are seen. Left hip: No fractures or dislocations are seen. Severe narrowing of the LEFT hip joint. IMPRESSION: Findings as discussed under Results portion of report. Power Generation Plant Operator: JOSE MIGUEL Transcribe Date/Time: Jul 13 2023 1:18P Dictated by : WASHINGTON BENAVIDES DO This examination was interpreted and the report reviewed and electronically signed by: WASHINGTON BENAVIDES DO on Jul 13 2023 1:19PM EST [id number] [facility] XR LEG FRONTL HIP-ANKL MECH AXISon 07-13-2023 XR LEG FRONTL HIP-ANKL MECH AXIS * * *Final Report* * * DATE OF EXAM: Jul 13 2023 10:43AM JANA [id number] - XR LEG FRONTL HIP-ANKL MECH AXIS / PROCEDURE REASON: [id number] * * * * Physician Interpretation * * * * EXAM(s): XR LEG FRONTL HIP-ANKL MECH AXIS EXAM DATE/TIME: 07/13/2023 10:43 AM HISTORY: 78 years old Clinical information: Pain LEFT HIP PAIN TECHNIQUE: Images: XR LEG FRONTL HIP-ANKL MECH AXIS Comparison: None. EXAM: XR LEG FRONTAL SCANOGRAM LENGTHS, XR LEG FRONTL HIP-ANKL MECH AXIS RESULT: Findings: AP view of the full lengths of the bilateral lower extremities was obtained with cm ruler markings. Measurements will be obtained by the ordering service. Bone density appears well-preserved. No fractures or dislocations are seen. IMPRESSION: Findings as discussed in results portion of report Power Generation Plant Operator: JOSE MIGUEL Transcribe Date/Time: Jul 13 2023 1:19P Dictated by : WASHINGTON BENAVIDES DO This examination was interpreted and the report reviewed and electronically signed by: WASHINGTON BENAVIDES DO on Jul 13 2023 1:20PM EST [id number] Normal [facility] XR Lower extremity - bilater al AP W standingon 07-13-2023 IMPRESSION: Findings as discussed in results portion of report Power Generation Plant Operator: JOSE MIGUEL Transcribe Date/Time: Jul 13 2023 1:19P Dictated by : WASHINGTON BENAVIDES DO This examination was interpreted and the report reviewed and electronically signed by: WASHINGTON BENAVIDES DO on Jul 13 2023 1:20PM EST [facility] * * *Final Report* * * DATE OF EXAM: Jul 13 2023 10:43AM JANA [id number] - XR LEG FRONTL HIP-ANKL MECH AXIS / PROCEDURE REASON: [id number] * * * * Physician Interpretation * * * * EXAM(s): XR LEG FRONTL HIP-ANKL MECH AXIS EXAM DATE/TIME: 07/13/2023 10:43 AM HISTORY: 78 years old Clinical information: Pain LEFT HIP PAIN TECHNIQUE: Images: XR LEG FRONTL HIP-ANKL MECH AXIS Comparison: None. EXAM: XR LEG FRONTAL SCANOGRAM LENGTHS, XR LEG FRONTL HIP-ANKL MECH AXIS RESULT: Findings: AP view of the full lengths of the bilateral lower extremities was obtained with cm ruler markings. Measurements will be obtained by the ordering service. Bone density appears well-preserved. No fractures or dislocations are seen. [facility] Provider, Louise Welch - 07/13/2023 * * *Final Report* * * DATE OF EXAM: Jul 13 2023 10:43AM JANA [id number] - XR LEG FRONTL HIP-ANKL MECH AXIS / PROCEDURE REASON: [id number] * * * * Physician Interpretation * * * * EXAM(s): XR LEG FRONTL HIP-ANKL MECH AXIS EXAM DATE/TIME: 07/13/2023 10:43 AM HISTORY: 78 years old Clinical information: Pain LEFT HIP PAIN TECHNIQUE: Images: XR LEG FRONTL HIP-ANKL MECH AXIS Comparison: None. EXAM: XR LEG FRONTAL SCANOGRAM LENGTHS, XR LEG FRONTL HIP-ANKL MECH AXIS RESULT: Findings: AP view of the full lengths of the bilateral lower extremities was obtained with cm ruler markings. Measurements will be obtained by the ordering service. Bone density appears well-preserved. No fractures or dislocations are seen. IMPRESSION IMPRESSION: Findings as discussed in results portion of report Power Generation Plant Operator: PSCAndrei Transcribe Date/Time: Jul 13 2023 1:19P Dictated by : WASHINGTON BENAVIDES DO This examination was interpreted and the report reviewed and electronically signed by: WASHINGTON BENAVIDES DO on Jul 13 2023 1:20PM EST [facility] XR Lower extremity - bilater al AP W standingOrdered By: Ccf Provider on 07-13-2023 [facility] XR Pelvis and Hip - left AP and Lateral frogon 07-13-2023 IMPRESSION: Findings as discussed under Results portion of report. Power Generation Plant Operator: JOSE MIGUEL Transcribe Date/Time: Jul 13 2023 1:18P Dictated by : WASHINGTON BENAVIDES DO This examination was interpreted and the report reviewed and electronically signed by: WASHINGTON BENAVIDES DO on Jul 13 2023 1:19PM [facility] * * *Final Report* * * DATE OF EXAM: Jul 13 2023 10:43AM JANA [id number] - XR HIP 3V PELV+ AP/LAT LT / PROCEDURE REASON: M25.552-Pain in left hip * * * * Physician Interpretation * * * * EXAM(s): XR HIP 3V PELV+ AP/LAT LT HISTORY: Indication: Pain in left hip TECHNIQUE: Images: XR HIP 3V PELV+ AP/LAT LT Comparison: None. RESULT: Findings: Pelvis: No fractures or dislocations are seen. Left hip: No fractures or dislocations are seen. Severe narrowing of the LEFT hip joint. [facility] * * *Final Report* * * DATE OF EXAM: Jul 13 2023 10:43AM JANA 5351 - XR HIP 3V PELV+ AP/LAT LT / PROCEDURE REASON: M25.552-Pain in left hip * * * * Physician Interpretation * * * * EXAM(s): XR HIP 3V PELV+ AP/LAT LT HISTORY: Indication: Pain in left hip TECHNIQUE: Images: XR HIP 3V PELV+ AP/LAT LT Comparison: None. RESULT: Findings: Pelvis: No fractures or dislocations are seen. Left hip: No fractures or dislocations are seen. Severe narrowing of the LEFT hip joint. IMPRESSION IMPRESSION: Findings as discussed under Results portion of report. Power Generation Plant Operator: PSCB Transcribe Date/Time: Jul 13 2023 1:18P Dictated by : WASHINGTON BENAVIDES DO This examination was interpreted and the report reviewed and electronically signed by: WASHINGTON BENAVIDES DO on Jul 13 2023 1:19PM EST [facility] XR Pelvis and Hip - left AP and Lateral frogOrdered By: Ccf Provider on 07-13-2023 [facility] CNPNon 06-27-2023 CNPN Telephone (SPNMED) -------- ERLINDA LUA ([id number]) 1945 F Date Time Provider Department 06/27/23 SRINIVAS GUADARRAMA SPNMED During your visit today, we recorded the following information about you: Rafi Heart RN 06/27/2023 3:33 PM Signed Patient left message on nurse line: I am still having pain in my hip and I want to know if Mr. Guadarrama could order an MRI for me. I'd like to do something about this pain in my hip. Spoke to patient regarding c/o hip pain Location: left hip Intensity: 9/10 Character: sharp and severe if standing or walking, sore if sitting Frequency: daily Duration: constant Aggravating Factors: standing, walking, movement Alleviating Factors: rest Physical therapy: First Appointment on Tuesday Patient advised to complete PT and call us with update or scheduled follow up. Patient states she is going to call her PCP for a consult to orthopedics to evaluate her hip. Routing to provider for review. Allergies As of Date: 06/27/2023 Noted Allergy Reaction ASPIRIN 02/03/2010 12 - Shortness of Breath Comments: And wheezy DAIRY AID (LACTASE) 11/06/2021 6 - Diarrhea Date Reviewed: 04/21/2023 Reviewed by: Crissy Jurado MA - Fully Assessed Prescriptions as of 11/01/2023 - gabapentin (NEURONTIN) 300 mg capsule Take 1 capsule by mouth three times a day for 90 days. - alendronate (FOSAMAX) 70 mg tablet Take 70 mg by mouth one time a week. In AM with cup of water on empty stomach. Nothing else by mouth and stay upright for 30 min. - cephALEXin (KEFLEX) 250 mg capsule Take 250 mg by mouth daily at bedtime. - metroNIDAZOLE (FLAGYL) 500 mg tablet Take 500 mg by mouth twice daily. - ascorbic acid (VITAMIN C ORAL) Take 1 tablet by mouth once daily. - cholecalciferol, vitamin D3, (VITAMIN D3 ORAL) Take 1,000 Units by mouth once daily. - Lactobacillus acidophilus (PROBIOTIC ORAL) Take 1 capsule by mouth once daily. - cranberry fruit extract (CRANBERRY ORAL) Take 1 tablet by mouth once daily. - lutein 20 mg tab Take 1 tablet by mouth once daily. - ginkgo biloba (GINKOBA ORAL) Take 120 mg by mouth once daily. - diphenhydramine HCl (ANTIHISTAMINE ORAL) Take 10 mg by mouth as needed. - multivitamin tablet Take 1 tablet by mouth once daily. - FOLIC ACID ORAL Take 1 tablet by mouth once daily. - sertraline (ZOLOFT) 50 mg tablet Take 50 mg by mouth once daily. - SYNTHROID 125 mcg ORAL tablet Take 125 mcg by mouth once daily. - METOPROLOL TARTRATE 50 mg ORAL tablet Take 50 mg by mouth once daily. Problem List As Of Date 06/27/2023 Noted Resolved Right knee pain [M25.561] 01/28/2010 03/15/2017 Pain in left knee [M25.562] 09/10/2014 02/01/2020 Primary osteoarthritis of left knee [M17.12] 04/17/2015 Umbilical hernia [K42.9] 03/09/2017 02/01/2020 Right sided abdominal pain [R10.9] 03/09/2017 02/01/2020 High blood pressure [I10] 03/15/2017 Thyroid disease [E07.9] 03/15/2017 Bradycardia [R00.1] 03/17/2017 Depression [F32.A] PAUMA (hard of hearing) [H91.90] En[facility]NE[facility] -------- ERLINDA LUA ([id number]) 1945 F Date Time Provider Department 05/10/23 SRINIVAS GUADARRAMA NEUR During your visit today, we recorded the following information about you: Rafi Heart RN 05/10/2023 11:01 AM Signed BRISEYDA: 04/21/23 with Srinivas Guadarrama PA-C RTC: on an as-needed basis (PRN) Other/Discussion: I would like her to go back to PT and x-rays and we can renew her muscle relaxant for now. She is not overusing the medication at all. She may indeed have separate LEFT hip OA or pain from that region. She may even have labral tear or some other soft tissue problem even if the x-ray does not show severe OA. SI joint testing was not very conclusive toward it being a SI joint disruption, so I will hold off on injecting that for now. Patient called provider due to persistent pain after using Gabapentin as ordered. PT evaluation ordered by provider scheduled in [place] on May 16, 2023. Patient has not completed PT for her low back pain that was ordered by provider because she was completing another PT order first. She would also like to discuss xray results and next steps. Pain Location: lower left side of back, left hip radiating down front of left leg to knee Intensity: while patient is sitting, discomfort is mild to 0/10. Walking, standing, activity causes an increase of pain score to 6/10 Character: described as strong ache Frequency: daily, worse with activity Duration: constant with activity, relieved with rest Aggravating Factors: walking or standing, also increases with activity Alleviating Factors: sitting, rest Using gabapentin TID without improvement in discomfort Routing to provider for review and recommendations. Rafi Heart RN 05/10/2023 5:12 PM Signed Srinivas Guadarrama PA-C You 6 hours ago (11:10 AM) If it's as you say--(she was doing PT for her shoulder or something else), then you probably have your answer to her question already in the chart: Next step is to finish PT for the low back (previously ordered) before we can get further testing, etc. When she's done with her PT, she should make another appointment. It might help clarify things for her. Elena Espitia, ROBERTA 05/11/2023 11:19 AM Signed Call to patient. No answer. Left voicemail to return call. Per Srinivas Guadarrama PA-C, patient needs to complete physical therapy and then schedule follow up appointment with him. Elena Anders, ROBERTA 05/12/2023 9:42 AM Signed Call to patient. No answer. Left voicemail to return call. Elena Anders RN 05/12/2023 12:36 PM Signed Received voicemail 05-12-23 at 9:49 AM. This is Nanda Lopezluis fernando [phone] returning Elena's call. If she could call me back I'd appreciate it. Thank you. Call back to patient. Informed her of message from provider. She verbalizes understanding to complete PT and then schedule a follow up appointment with Cindi Guadarrama PA-C. Allergies As of Date: 05/10/2023 Noted Allergy Reaction ASPIRIN 02/03/2010 12 - Shortness of Breath Comments: And wheezy DAIRY AID (LACTASE) 11/06/2021 6 - Diarrhea Date Reviewed: 04/21/2023 Reviewed by: Crissy Jurado MA - Fully Assessed Reason for Visit: Patient Update [1234] Prescriptions as of 05/31/2023 - gabapentin (NEURONTIN) 300 mg capsule Take 1 capsule by mouth three times a day for 90 days. - alendronate (FOSAMAX) 70 mg tablet Take 70 mg by mouth one time a week. In AM with cup of water on empty stomach. Nothing else by mouth and stay upright for 30 min. - cephALEXin (KEFLEX) 250 mg capsule Take 250 mg by mouth daily at bedtime. - metroNIDAZOLE (FLAGYL) 500 mg tablet Take 500 mg by mouth twice daily. - ascorbic acid (VITAMIN C ORAL) Take 1 tablet by mouth once daily. - cholecalciferol, vitamin D3, (VITAMIN D3 ORAL) Take 1,000 Units by mouth once daily. - Lactobacillus acidophilus (PROBIOTIC ORAL) Take 1 capsule by mouth once daily. - cranberry fruit extract (CRANBERRY ORAL) Take 1 tablet by mouth once daily. - lutein 20 mg tab Take 1 tablet by mouth once daily. - ginkgo biloba (GINKOBA ORAL) Take 120 mg by mouth once daily. - diphenhydramine HCl (ANTIHISTAMINE ORAL) Take 10 mg by mouth as needed. - multivitamin tablet Take 1 tablet by mouth once daily. - FOLIC ACID ORAL Take 1 tablet by mouth once daily. - sertraline (ZOLOFT) 50 mg tablet Take 50 mg by mouth once daily. - SYNTHROID 125 mcg ORAL tablet Take 125 mcg by mouth once daily. - METOPROLOL TARTRATE 50 mg ORAL tablet Take 50 mg by mouth once daily. Problem List As Of Date 05/10/2023 Noted Resolved Right knee pain [M25.561] 01/28/2010 03/15/2017 Pain in left knee [M25.562] 09/10/2014 02/01/2020 Primary osteoarthritis of left knee [M17.12] 04/17/2015 Umbilical hernia [K42.9] 03/09/2017 02/01/2020 Right sided abdominal pain [R10.9] 03/09/2017 02/01/2020 High blood pressure [I10] 02/28 (more content not included)... Normal [facility] CNOVon 04-21-2023 CNOV Office Visit (SPNMED ) -------- ERLINDA LUA ([id number]) 1945 F Date Time Provider Department 04/21/23 1:10 PM SRINIVAS GUADARRAMA During your visit today, we recorded the following information about you: Pulse Blood pressure Weight Height 59/minute 136/62 99 kg 1.727 m Srinivas Guadarrama PA-C 04/21/2023 1:33 PM Signed SEAN [facility] [address] [facility] [address] [place] [address] Dear Silvia Pradhan MD, MD, Erlinda Lua is a pleasant 77 year old individual who comes in to the office on 04/21/2023 for follow-up regarding the Lumbar spine. Has lower back pain, left hip, left groin area pain(new), and left leg. Has this pain for years and the pain is getting worse. Level of the pain is at 5/10. Has sharp pain from the left groin down to the left leg. Standing up and walking is more painful, about 8/10. A friend accompanies the patient today. Subjective: Compared to the last visit, symptoms have been worse. Ms. Lua still has pain in the same area that she had at her last visit with me on 08/18/2022. At that point, I had ordered PT, x-rays, and tizanidine. She ended up just taking the tizanidine and feeling quite a bit better. She did not do the PT or the x-rays. She has symptoms in the central low back at lumbosacral junction now and she has some symptoms from the left buttock that wraparound to the left anterior groin area and then down the anterior thigh. ROS: Since last visit-patient DENIES fevers, chills, night sweats, unexpected weight loss or gain, abdominal pain, progressive weakness, paralysis, loss of bowel/bladder control, saddle numbness, stumbling gait, loss of coordination. Current Outpatient Medications Medication Sig Dispense Refill alendronate (FOSAMAX) 70 mg tablet Take 70 mg by mouth one time a week. In AM with cup of water on empty stomach. Nothing else by mouth and stay upright for 30 min. cephALEXin (KEFLEX) 250 mg capsule Take 250 mg by mouth daily at bedtime. ascorbic acid (VITAMIN C ORAL) Take 1 tablet by mouth once daily. cholecalciferol, vitamin D3, (VITAMIN D3 ORAL) Take 1,000 Units by mouth once daily. Lactobacillus acidophilus (PROBIOTIC ORAL) Take 1 capsule by mouth once daily. cranberry fruit extract (CRANBERRY ORAL) Take 1 tablet by mouth once daily. lutein 20 mg tab Take 1 tablet by mouth once daily. ginkgo biloba (GINKOBA ORAL) Take 120 mg by mouth once daily. diphenhydramine HCl (ANTIHISTAMINE ORAL) Take 10 mg by mouth as needed. multivitamin tablet Take 1 tablet by mouth once daily. sertraline (ZOLOFT) 50 mg tablet Take 50 mg by mouth once daily. SYNTHROID 125 mcg ORAL tablet Take 125 mcg by mouth once daily. METOPROLOL TARTRATE 50 mg ORAL tablet Take 50 mg by mouth once daily. tiZANidine (ZANAFLEX) 4 mg tablet Take 1 tablet by mouth every 8 hours as needed. (Patient not taking: Reported on 04/21/2023) 30 tablet 0 metroNIDAZOLE (FLAGYL) 500 mg tablet Take 500 mg by mouth twice daily. FOLIC ACID ORAL Take 1 tablet by mouth once daily. (Patient not taking: Reported on 11/06/2021) No current facility-administered medications for this visit. Exam: Blood pressure 136/62, pulse (!) 59, height 172.7 cm (5' 8 ), weight 99 kg (218 lb 4.1 oz), SpO2 98%. Body mass index is 33.19 kg/m?. Station and Gait: favoring the left lower extremity Pain on Palpation: Directly over lumbosacral junction in the midline, LEFT SI region, LEFT GT, and left buttock musculature. We did sacroiliac joint testing throughout today's visit and she did not have any particular sensitivity or positivity to either Ajay, Gaenslen's, lateral compression, or posterior extension tests. She seemed end up with more anterior left groin pain than she had back pain with these maneuvers. Imaging: No new imaging studies were reviewed during this office visit. Assessment/Plan: Encounter Diagnosis ICD-10-CM 1. Left buttock pain M79.18 XR LUMBAR MOTION 4V AP/LAT/ FLEX/EXT CONSULT TO PHYSICAL THERAPY tiZANidine (ZANAFLEX) 4 mg tablet 2. Lumbar radiculopathy M54.16 XR LUMBAR MOTION 4V AP/LAT/ FLEX/EXT CONSULT TO PHYSICAL THERAPY tiZANidine (ZANAFLEX) 4 mg tablet 3. Chronic bilateral low back pain without sciatica M54.50 XR LUMBAR MOTION 4V AP/LAT/ FLEX/EXT G89.29 CONSULT TO PHYSICAL THERAPY tiZANidine (ZANAFLEX) 4 mg tablet RTC: on an as-needed basis (PRN) Other/Discussion: I would like her to go back to PT and x-rays and we can renew her muscle relaxant for now. She is not overusing the medication at all. She may indeed have separate LEFT hip OA or pain from that region. She may even have labral tear or some other soft tissue problem even if the x-ray does not show severe OA. SI joint testing was not very conclusive toward it being a SI joint disruption, so I will hold off on injecting that f (more content not included)... Normal [facility] Comprehensive metabolic 2000 panelon 01-26-2023 Albumin BCP dye [Mass/Vol] 3.6 g/dL Normal 3.4-5.0 [facility] Comment on above: Performed By: #### 2 4323-8 #### SEBASTIAN Grace ([id number]) [facility] ([facility]) [id number] [place] [address] 42278 ALP [Catalytic activity/Vol] 44 U/L Normal 33-136 [facility] Comment on above: Performed By: #### 2 4323-8 #### SEBASTIAN Grace ([id number]) [facility] ([facility]) [id number] [place] [address] 09076 ALT With P-5'-P [Catalytic activity/Vol] 12 U/L Normal 7-45 [facility] Comment on above: Result Comment: Macy ents treated with Sulfasalazine may generate falsely decreased results for ALT. Performed By: #### 2 4323-8 #### SEBASTIAN Grace ([id number]) [facility] ([facility]) [address] [place] [address] Anion gap [Moles/Vol] 11 mmol/L Normal 10-20 [facility] Comment on above: Performed By: #### 2 4323-8 #### SEBASTIAN PAGE L ([id number]) [facility] ([facility]) [id number] [place] [address] 12196 AST With P-5'-P [Catalytic activity/Vol] 17 U/L Normal 9-39 [facility] Comment on above: Performed By: #### 2 4323-8 #### SEBASTIAN PAGE L ([id number]) [facility] ([facility]) [address] [place] [address] Bilirubin [Mass/Vol] 0.4 mg/dL Normal 0.0-1.2 [facility] Comment on above: Performed By: #### 2 4323-8 #### SEBASTIAN PAGE L ([id number]) [facility] ([facility]) [address] [place] [address] Calcium [Mass/Vol] 9.2 mg/dL Normal 8.6-10.6 [facility] Comment on above: Performed By: #### 2 4323-8 #### SEBASTIAN PAGE L ([id number]) [facility] ([facility]) [address] [place] [address] 49980 Chloride [Moles/Vol] 108 mmol/L High 98-107 [facility] Comment on above: Performed By: #### 2 4323-8 #### SEBASTIAN PAGE L ([id number]) [facility] ([facility]) [address] [place] [address] CO2 [Moles/Vol] 30 mmol/L Normal 21-32 [facility] Comment on above: Performed By: #### 2 4323-8 #### SEBASTIAN PAGE L ([id number]) [facility] ([facility]) [address] [place] [address] Creatinine [Mass/Vol] 0.74 mg/dL Normal 0.50-1.05 [facility] Comment on above: Performed By: #### 2 4323-8 #### SEBASTIAN RIVERATZER L ([id number]) [facility] ([facility]) [address] [place] [address] 70883 GFR/1.73 sq M.predicted MDRD (S/P/Bld) [Vol rate/Area] 83 mL/min/1.73m*2 Normal >60 [facility] Comment on above: Result Comment: Calc ulations of estimated GFR are performed using the 2020 CKD-EPI Study Refit equation without the race variable for the IDMS-Traceable creatinine methods. https://jasn.asnjournals.org/content//ASN.29964112 88 Performed By: #### 2 4323-8 #### SEBASTIAN Grace ([id number]) [facility] ([facility]) [address] [place] [address] 39175 Glucose [Mass/Vol] 98 mg/dL Normal 74-99 [facility] Comment on above: Performed By: #### 2 4323-8 #### SEBASTIAN Grace ([id number]) [facility] ([facility]) [address] [place] [address]40 Potassium [Moles/Vol] 4.5 mmol/L Normal 3.5-5.3 [facility] Comment on above: Performed By: #### 2 4323-8 #### SEBASTIAN Grace ([id number]) [facility] ([facility]) [address] [place] [address] 27985 Protein [Mass/Vol] 6.3 g/dL Low 6.4-8.2 [facility] Comment on above: Performed By: #### 2 4323-8 #### SEBASTIAN Grace ([id number]) [facility] ([facility]) [address] [place] [address] 42291 Sodium [Moles/Vol] 144 mmol/L Normal 136-145 [facility] Comment on above: Performed By: #### 2 4323-8 #### SEBASTIAN Grace ([id number]) [facility] ([facility]) [address] [place] [address] 75232 Urea nitrogen [Mass/Vol] 16 mg/dL Normal 6-23 [facility] Comment on above: Performed By: #### 2 4323-8 #### SEBASTIAN Grace ([id number]) [facility] ([facility]) [address] [place] [address] 94670 Lipid 1996 panelon 3 Cholesterol [Mass/Vol] 230 mg/dL High 0-199 [facility] Comment on above: Result Comment: Age Desirable Borderline High High 0-19 Y 0 - 169 170 - 199 >/= 200 20-24 Y 0 - 189 190 - 224 >/= 225 >24 Y 0 - 199 200 - 239 >/= 240 All ranges are based on fasting samples. Specific therapeutic targets will vary based on patient-specific cardiac risk. Pediatric guidelines reference:Pediatrics 2011, 128(S5).Adult guidelines reference: NCEP ATPIII Guidelines,GRETCHEN 2001, 258:2486-97 Venipuncture immediately after or during the administration of Metamizole may lead to falsely low results. Testing should be performed immediately prior to Metamizole dosing. Performed By: #### 2 4331-1 #### SEBASTIAN Grace ([id number]) [facility] ([facility]) [address] [place] [address] 03047 Cholesterol in HDL [Mass/Vol] 53.0 mg/dL Normal [facility] Comment on above: Result Comment: Age Very Low Low Normal High 0-19 Y < 35 < 40 40-45 ---- 20-24 Y ---- < 40 >45 ---- >24 Y ---- < 40 40-60 >60 Performed By: #### 2 4331-1 #### SEBASTIAN Grace ([id number]) [facility] ([facility]) [address] [place] [address] 58956 Cholesterol in LDL [Mass/Vol] 158 mg/dL High <=99 [facility] Comment on above: Result Comment: Near Borderline AGE Desirable Optimal High High Very High 0-19 Y 0 - 109 --- 110-129 >/= 130 ---- 20-24 Y 0 - 119 --- 120-159 >/= 160 ---- >24 Y 0 - 99 100-129 130-159 160-189 >/=190 Performed By: #### 2 4331-1 #### SEBASTIAN Grace ([id number]) [facility] ([facility]) [address] [place] [address] 17074 Cholesterol in VLDL [Mass/Vol] 19 mg/dL Normal 0-40 [facility] Comment on above: Performed By: #### 2 4331-1 #### SEBASTIAN Grace ([id number]) [facility] ([facility]) [address] [place] [address] CHOLESTEROL/HDL RATIO 4.3 Normal [facility] Comment on above: Result Comment: Ref Values Desirable < 3.4 High Risk > 5.0 Performed By: #### 2 4331-1 #### SEBASTIAN Grace ([id number]) [facility] ([facility]) [id number] [place] [address] 39797 NON HDL CHOLESTEROL 177 mg/dL High 0-149 [facility] Comment on above: Result Comment: Age Desirable Borderline High High Very High 0-19 Y 0 - 119 120 - 144 >/= 145 >/= 160 20-24 Y 0 - 149 150 - 189 >/= 190 ---- >24 Y 30 mg/dL above LDL Cholesterol goal Performed By: #### 2 4331-1 #### SEBASTIAN Grace ([id number]) [facility] ([facility]) [address] [place] [address] 35445 Triglyceride [Mass/Vol] 94 mg/dL Normal 0-149 [facility] Comment on above: Result Comment: Age Desirable Borderline High High Very High 0 D-90 D 19 - 174 ---- ---- ---- 91 D- 9 Y 0 - 74 75 - 99 >/= 100 ---- 10-19 Y 0 - 89 90 - 129 >/= 130 ---- 20-24 Y 0 - 114 115 - 149 >/= 150 ---- >24 Y 0 - 149 150 - 199 200- 499 >/= 500 Venipuncture immediately after or during the administration of Metamizole may lead to falsely low results. Testing should be performed immediately prior to Metamizole dosing. Performed By: #### 2 4331-1 #### SEBSATIAN Grace ([id number]) [facility] ([facility]) [address] [place] [address] 26825 Thyrotropinon 01-26-2023 TSH Qn 0.34 m[IU]/L Low 0.44-3.98 [facility] Comment on above: Order Comment: TSH t esting is performed using different testing methodology at [facility] than at [facility]. Direct result comparisons should only be made within the same method. Performed By: #### 3 016-3 #### SEBASTIAN Grace ([id number]) [facility] ([facility]) [address] [place] [address] Thyroxine.freeon 01-26-2023 Free T4 [Mass/Vol] 1.22 ng/dL Normal 0.78-1.48 [facility] Comment on above: Order Comment: Thyro xine Free testing is performed using different testing methodology at [facility] than at [facility]. Direct result comparisons should only be made within the same method. Performed By: #### 3 024-7 #### SEBASTIAN Grace ([id number]) [facility] ([facility]) [address] [place], [place] [id number] [facility] 12-24-2022 CNCO HNO ID: [id number] Author: Coordinator, Mammography Service: ? Author Type: Physician Type: Letter Filed: 12/27/2022 11:37 PM Note Text: [address] [address] December 24, 2022 PID: [id number] Erlinda Lua [address] [place], [place] [id number] Dear Ms. Lua, We are pleased to inform you that the results of your recent breast imaging exam on 12/23/2022 are normal. Early detection of cancer is very important. We also understand recommendations regarding breast cancer screening are controversial. Please discuss with your primary care provider which strategy is best for you and whether a mammogram is right for you. Your imaging studies and report will be kept on file at [facility] as part of your permanent medical record and are available for your continuing care. Thank you for allowing us to help in meeting your health care needs. Sincerely, Dr. Samuel Interpreting Radiologist [facility] (Normal over 40) Normal [facility] TREVA SCREENING W TOMOon 12-23 TREVA SCREENING W LEONIDAS * * *Final Report* * * DATE OF EXAM: Dec 23 2022 12:25PM LDW 0582 - TREVA SCREENING W LEONIDAS / PROCEDURE REASON: Z12.39 breast cancer screening other than mammogram , Z12.31 Encounter for scree * * * * Physician Interpretation * * * * #[id number] - [facility] SCREENING W LEONIDAS BILATERAL DIGITAL SCREENING MAMMOGRAM TOMOSYNTHESIS WITH CAD: 12/23/2022 HISTORY: / Screening Mammogram-Patient reports NO symptoms. RESULT: TECHNIQUE: The study was acquired using full field digital technology and interpreted from soft copy. Digital Breast Tomosynthesis (DBT) images were obtained and used to assist in the interpretation of this examination. Current study was also evaluated with a Computer Aided Detection (CAD). Comparison is made to exams dated: 08/19/2021 mammogram and 12/12/2019 mammogram - [facility]. There are scattered areas of fibroglandular density. No significant masses, calcifications, or other findings are seen in either breast. There has been no significant interval change. IMPRESSION: NEGATIVE There is no mammographic evidence of malignancy. A 1 year screening mammogram is recommended. Kim alexis/mei:12/24/2022 10:22:14 Videotape Sales Representative(s): Safia Eldridge (R)(M), [facility] letter sent: Normal over 40 Mammogram BI-RADS: 1 Negative Multiple national specialty organizations have released breast cancer screening guidelines for women at average risk for developing breast cancer - guidelines that are based on both evidence and opinion, yet differ on when to start and how often to screen for breast cancer. With representation from Breast Imaging, Internal Medicine, Women's Health, Family Medicine, and Medical/Surgical Oncology, the [facility] has carefully reviewed the data and reached the following consensus: 1) All women should engage in shared decision-making with their providers to decide when to start and how often to screen; 2) All women should have the opportunity to start screening mammography at age 40; 3) For women ages 45-55, we recommend annual screening mammograms; 4) For women ages 55 and over, we support both the transition from an annual to a biennial interval if this aligns more with patient's values and preferences, or continuation with annual screening; 5) All women should discuss with their providers when to stop screening mammograms. Power Generation Plant Operator: Mei Transcribe Date/Time: Dec 23 2022 10:51A Dictated by : KIM SAMUEL MD This examination was interpreted and the report reviewed and electronically signed by: KIM SAMUEL MD on Dec 24 2022 10:22AM EST [id number] Normal [facility] CNOVon 11-26-2022 CNOV Office Visit (ORMDRG ) -------- ERLINDA LUA ([id number]) 1945 F Date Time Provider Department 11/26/22 2:00 PM KANIKA ALEMAN ORSDRG During your visit today, we recorded the following information about you: Kanika Aleman MD 11/26/2022 2:42 PM Signed ORTHOPAEDIC SHOULDER AND ELBOW SERVICE HISTORY AND PHYSICAL EXAM REFERRING PROVIDER: SELF CHIEF COMPLAINT: Left shoulder pain PAIN EVALUATION 11/26/2022 1417 Pain Level: 6 Pain Location: Shoulder-Left Description: Aching;Shooting;Radiatin g radiates to mid humerus area Frequency: Continuous Erlinda Lua is a 77 year old woman who presents today for evaluation of her left shoulder. She has had pain and limited ability to lift the arm with any strength over the past several months without any injury she can recall. 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 She has pain with rolling over at night to sleep. Treatments and therapies to-date include: Activity modification/changes to daily activities: This Medical management (Tylenol, NSAIDs): Yes Physical therapy within the past 6 months for at least 4 weeks: No Corticosteroid Injection: No PAST MEDICAL HISTORY: PAST MEDICAL HISTORY Diagnosis Date Bradycardia 03/17/2017 Depression High blood pressure Thyroid disease PAST SURGICAL HISTORY: PAST SURGICAL HISTORY Procedure Laterality Date ARTHRP KNE CONDYLEANDPLATU MEDIALANDLAT COMPARTMENTS Right 03/22/2011 ORAL SURGERY PROCEDURE dental implant REPAIR UMBILICAL HERNIA 03/28/2017 and Repair RLQ Abdominal Wall Defect, TONSILLECTOMY AND ADENOIDECTOMY TOTAL KNEE REPLACEMENT Left 02/13/2020 SOCIAL HISTORY: Social History Tobacco Use Smoking status: Never Smokeless tobacco: Never Vaping Use Vaping Use: Never used Substance Use Topics Alcohol use: Yes Alcohol/week: 1.0 standard drink of alcohol Types: 1 Glasses of Wine (5oz) per week Drug use: No ALLERGIES: ALLERGIES Allergen Reactions Aspirin Shortness of Breath And wheezy Dairy Aid [Lactase] Diarrhea MEDICATIONS: Current Outpatient Medications on File Prior to Visit Medication Sig alendronate (FOSAMAX) 70 mg tablet Take 70 mg by mouth one time a week. In AM with cup of water on empty stomach. Nothing else by mouth and stay upright for 30 min. cephALEXin (KEFLEX) 250 mg capsule Take 250 mg by mouth daily at bedtime. tiZANidine (ZANAFLEX) 4 mg tablet Take 1 tablet by mouth every 8 hours as needed. ascorbic acid (VITAMIN C ORAL) Take 1 tablet by mouth once daily. cholecalciferol, vitamin D3, (VITAMIN D3 ORAL) Take 1,000 Units by mouth once daily. Lactobacillus acidophilus (PROBIOTIC ORAL) Take 1 capsule by mouth once daily. cranberry fruit extract (CRANBERRY ORAL) Take 1 tablet by mouth once daily. lutein 20 mg tab Take 1 tablet by mouth once daily. ginkgo biloba (GINKOBA ORAL) Take 120 mg by mouth once daily. diphenhydramine HCl (ANTIHISTAMINE ORAL) Take 10 mg by mouth as needed. multivitamin tablet Take 1 tablet by mouth once daily. sertraline (ZOLOFT) 50 mg tablet Take 50 mg by mouth once daily. SYNTHROID 125 mcg ORAL tablet Take 125 mcg by mouth once daily. METOPROLOL TARTRATE 50 mg ORAL tablet Take 50 mg by mouth once daily. metroNIDAZOLE (FLAGYL) 500 mg tablet Take 500 mg by mouth twice daily. FOLIC ACID ORAL Take 1 tablet by mouth once daily. (Patient not taking: Reported on 11/06/2021) No current facility-administered medications on file prior to visit. PHYSICAL EXAMINATION: There were no vitals taken for this visit. EXAM: Shoulder Musculoskeletal Exam Inspection Left Ecchymosis: none Peripheral edema: none Atrophy: none Symmetry: symmetric Masses: none Skin tenting: none Prior incision: none Palpation Left Crepitus: no crepitus Increased warmth: none Tenderness: present Anterior shoulder: moderate Posterior shoulder: mild Clavicle: none AC joint: mild Sternoclavicular joint: none Rotator cuff: moderate Greater tuberosity: mild Trapezius: mild Medial scapula: none Superior pole of scapula: none Inferior pole of scapula: none Bicipital groove: mild Proximal biceps: moderate Range of Motion Left Active ROM: abnormal and pain. Passive ROM: abnormal and pain. Active forward elevation: 90. Passive forward elevation: 120. Shoulder active abduction: 90. Passive abduction: 90. Active external rotation at side: 60. Passive external rotation at side: 60. Active external rotation in abduction: 80. Passive external rotation in abduction: 80. Active internal rotation in abduction: 60. Passive internal rotation in abduction: 60. Internal rotation: T12. Strength Left External rotation: 4+/5. Internal rotation: 4+/5. Abduction: 4+/5. Neurovascular Left Left shoulder nerve sensation is no (more content not included)... Normal [facility] XR SHLDR >/=3V AP/JUDY AP/OTH R LTon 11-25-2022 XR SHLDR >/=3V AP/JUDY AP/OTHR LT * * *Final Report* * * DATE OF EXAM: Nov 25 2022 1:26PM LDX 5252 - XR SHLDR >/=3V AP/JUDY AP/OTHR LT / PROCEDURE REASON: multiple diagnoses * * * * Physician Interpretation * * * * EXAM TITLE: XR SHLDR >/=3V AP/JUDY AP/OTHR LT DATE: 11/25/2022 3:15 PM INDICATION: Left shoulder pain COMPARISON: None. FINDINGS: No fracture or dislocation. No acute soft tissue abnormality. IMPRESSION: No acute radiographic abnormality. Power Generation Plant Operator[facility] Transcribe Date/Time: Nov 25 2022 3:15P Dictated by : ABIMAEL HANKINS MD This examination was interpreted and the report reviewed and electronically signed by: ABIMAEL HANKINS MD on Nov 25 2022 3:16PM EST [id number] Normal [facility] XR SHOULDER GENERAL 3V OR MO RE AP/TRUE AP/OTHER LEFTon 11-25-2022 [facility] Office Visit (Family Medicin e)on 01-18-2022 Follow-up visit Diagnoses/Problems Hypertension (401.9) (I10) Hypothyroidism (244.9) (E03.9) Hyperlipidemia (272.4) (E78.5) Depression (311) (F32.A) Depression Orders Depression Renew: Sertraline HCl - 50 MG Oral Tablet; TAKE 1 TABLET DAILY DIRECTED last appt-07/23/21 next appt-01/18/22 last -07/20/21 [facility] 10/22/21 [facility] 07/06/21 Hypertension Renew: Metoprolol Tartrate 50 MG Oral Tablet; take 1 tablet by mouth once daily 90 day RX sent to local pharmacy on 2020. Sent to [facility] today. [facility] 12/11/20 Hypothyroidism Renew: Synthroid 125 MCG Oral Tablet (Levothyroxine Sodium); TAKE 1 TABLET DAILY DIRECTED last appt-07/23/21 next [facility]-01/18/22 last -07/20/21 [facility] 10/22/21 Pt waiting for mail order, needs short supply sent to local pharmacy. [facility] 07/15/21 Osteopenia Renew: Alendronate Sodium 70 MG Oral Tablet; TAKE 1 TABLET ONCE WEEKLY last appt-07/23/21 next [facility]-01/18/22 last -07/20/21 [facility] 10/22/21 Patient Discussion/Summary Just wants the flu shot today, will wait until Spring to get Prevnar 20; info given on low chol diet; f/u 6 mos for MWE By signing my name below, I, Dudley Handley , attest that this documentation has been prepared under the direction and in the presence of Dr. Silvia Pradhan MD.1 All medical record entries made by the Yaryibade were at my direction and personally dictated by me. I have reviewed the chart and agree that the record accurately reflects my personal performance of the history, physical exam, discussion and plan. 1 . 1 Amended By: Elvira Black; Jan 18 2022 2:20 PM ESTHistory of Present Illness EP. Here for 6 month follow up and medication. Erlinda is a 76 year old female presenting today for a routine 6 month follow up visit and refills of medication. -Doing good, no specific concerns or complaints. 1 1,3 -She has been eating a lot of cheese and eats fast food at least once a week. 1 -Her new Medicare insurance does not cover Synthroid, needs a letter sent to them 2 2,3 allowing 3 2,3 her 2 to get name brand 3 Synthroid. 2 -Would like the influenza vaccine today, especially with the holidays approaching. 1 1 Amended By: Elvira Black; Jan 18 2022 1:59 PM EST 2 Amended By: Elvira Black; Jan 18 2022 3:25 PM EST 3 Amended By: Silvia Pradhan; Jan 18 2022 10:25 PM ESTReview of Systems Genl: The patient has been in good health without recent weight change, fevers, or night sweats CVS: No chest pain, irregular heartbeat, shortness of breath, or swollen ankles Resp: No cough or difficulty breathing GI: No change in bowel habits or abdominal pain. No heartburn : No urinary problems. Active Problems Abdominal discomfort (789.00) (R10.9) Abnormal mammogram (793.80) (R92.8) Acute back pain (724.5) (M54.9) Acute pharyngitis (462) (J02.9) Acute sinusitis (461.9) (J01.90) Acute URI (465.9) (J06.9) Acute UTI (599.0) (N39.0) Arm pain (729.5) (M79.603) Class 1 obesity with body mass index (BMI) of 32.0 to 32.9 in adult (278.00,V85.32) (E66.9,Z68.32) Colon cancer screening (V76.51) (Z12.11) Cutaneous candidiasis (112.3) (B37.2) Depression (311) (F32.A) Depression Depression (311) (F32.A) Depression Depression (311) (F32.A) Depression Depression (311) (F32.A) Depression Depression, major, single episode, mild (296.21) (F32.0) Depression, major, single episode, mild Depression, major, single episode, mild (296.21) (F32.0) Depression, major, single episode, mild Dermatitis (692.9) (L30.9) Disorder of bone density and structure, unspecified (733.90) (M85.9) Dysuria (788.1) (R30.0) Frequent urination (788.41) (R35.0) Hyperlipidemia (272.4) (E78.5) Hypertension (401.9) (I10) Hypothyroidism (244.9) (E03.9) Leucopenia (288.50) (D72.819) Osteopenia (733.90) (M85.80) Postmenopausal (V49.81) (Z78.0) Recurrent UTI (599.0) (N39.0) Screening cholesterol level (V77.91) (Z13.220) Screening for cancer of the rectum (V76.41) (Z12.12) Sinobronchitis (473.9,490) (J32.9,J40) Sinusitis (473.9) (J32.9) Tendonitis (726.90) (M77.9) URTI (acute upper respiratory infection) (465.9) (J06.9) Added by Problem List Migration; 2012-04-25; Moved to [facility] Jan 22 2013 9:15PM Visit for screening mammogram (V76.12) (Z12.31) Past Medical History History of hypertension (V12.59) (Z86.79) History of hypothyroidism (V12.29) (Z86.39) Surgical History History of Knee Surgery Family History Family history of Adenocarcinoma Of The Breast With Squamous Metaplasia (V16.3) Family history of Lump Or Mass In Breast Family history of Diabetes Mellitus (V18.0) Social History Alcohol Use (History) Caffeine Use Marital History - Never smoker Allergies Aspirin TABS Wheezing;; Updated By: Ana Carlos; 05/12/2012 3:28:27 PM Milk, Cow Recorded By: Diandra Lester; 11/12/2019 10:49:29 AM Current Meds Medication NameInstructionReason Sertraline HCl - 50 MG Oral (more content not included)... Normal [facility] Tobacco Screening.on 022 Fall risk assessment a) No falls within the last year [facility] Work Phone: Tobacco use status CPHS b) No [facility] Work Phone: TSHon 01-14-2022 TSH Qn 0.43 m[IU]/L Low 0.44 - 3.98 [facility] Comment on above: Result Comment: TSH testing is performed using different testing methodology at [facility] than [facility]. Direct result comparisons should only be made within the same method. Performed By: #### T SH2 #### [facility] [address] [place] [address] COMPREHENSIVE PANELon 2021 Albumin [Mass/Vol] 4.3 g/dL Normal 3.4 - 5.0 [facility] Comment on above: Performed By: #### C MP #### [facility] [address] [place] [address] ALP [Catalytic activity/Vol] 46 U/L Normal 33 - 136 [facility] Comment on above: Performed By: #### C MP #### [facility] [address] [place] [address] ALT [Catalytic activity/Vol] 16 U/L Normal 7 - 45 [facility] Comment on above: Result Comment: Macy ents treated with Sulfasalazine may generate falsely decreased results for ALT. Performed By: #### C MP #### [facility] [address] [place] [address] Anion gap [Moles/Vol] 13 mmol/L Normal 10 - 20 [facility] Comment on above: Performed By: #### C MP #### [facility] [address] [place] [address] AST [Catalytic activity/Vol] 19 U/L Normal 9 - 39 [facility] Comment on above: Performed By: #### C MP #### [facility] [address] [place] [address] Bilirubin [Mass/Vol] 0.5 mg/dL Normal 0.0 - 1.2 [facility] Comment on above: Performed By: #### C MP #### [facility] [address] [place] [address] Calcium [Mass/Vol] 9.4 mg/dL Normal 8.6 - 10.6 [facility] Comment on above: Performed By: #### C MP #### [facility] [address] [place] [address] Chloride [Moles/Vol] 107 mmol/L Normal 98 - 107 [facility] Comment on above: Performed By: #### C MP #### [facility] [address] [place] [address] Creatinine [Mass/Vol] 0.80 mg/dL Normal 0.50 - 1.05 [facility] Comment on above: Performed By: #### C MP #### [facility] [address] [place] [address] GFR/1.73 sq M.predicted among non-blacks MDRD (S/P/Bld) [Vol rate/Area] 76 mL/min/{1.73_m2} Normal >90 [facility] Comment on above: Result Comment: CALC ULATIONS OF ESTIMATED GFR ARE PERFORMED USING THE 2020 CKD-EPI STUDY REFIT EQUATION WITHOUT THE RACE VARIABLE FOR THE IDMS-TRACEABLE CREATININE METHODS. https://jasn.asnjournals.org/content//ASN.57742740 88 Performed By: #### C MP #### [facility] [address] [place] [address] Glucose [Mass/Vol] 95 mg/dL Normal 74 - 99 [facility] Comment on above: Performed By: #### C MP #### [facility] [address] [place] [address] HCO3 (Bld) [Moles/Vol] 27 mmol/L Normal 21 - 32 [facility] Comment on above: Performed By: #### C MP #### [facility] [address] [place] [address] Potassium [Moles/Vol] 4.5 mmol/L Normal 3.5 - 5.3 [facility] Comment on above: Performed By: #### C MP #### [facility] [address] [place] [address] Protein [Mass/Vol] 7.0 g/dL Normal 6.4 - 8.2 [facility] Comment on above: Performed By: #### C MP #### [facility] [address] [place] [address] Sodium [Moles/Vol] 142 mmol/L Normal 136 - 145 [facility] Comment on above: Performed By: #### C MP #### [facility] [address] [place] [address] Urea nitrogen [Mass/Vol] 17 mg/dL Normal 6 - 23 [facility] Comment on above: Performed By: #### C MP #### [facility] [address] [place] [address] LIPID PANEL (CORONARY RISK 2 )on 01-13-2022 Cholesterol [Mass/Vol] 242 mg/dL High 0 - 199 [facility] Comment on above: Result Comment: . AGE DESIRABLE BORDERLINE HIGH HIGH 0-19 Y 0 - 169 170 - 199 >/= 200 20-24 Y 0 - 189 190 - 224 >/= 225 >24 Y 0 - 199 200 - 239 >/= 240 All ranges are based on fasting samples. Specific therapeutic targets will vary based on patient-specific cardiac risk. . Pediatric guidelines reference:Pediatrics 2011, 128(S5). Adult guidelines reference: NCEP ATPIII Guidelines, GRETCHEN 2001, 258:2486-97 . Venipuncture immediately after or during the administration of Metamizole may lead to falsely low results. Testing should be performed immediately prior to Metamizole dosing. Performed By: #### L IPID #### [facility] [address] [place] [address] Cholesterol in HDL [Mass/Vol] 56.0 mg/dL Normal [facility] Comment on above: Result Comment: . AGE VERY LOW LOW NORMAL HIGH 0-19 Y < 35 < 40 40-45 ---- 20-24 Y ---- < 40 >45 ---- >24 Y ---- < 40 40-60 >60 . Performed By: #### L IPID #### [facility] [address] [place] [address] Cholesterol in LDL [Mass/Vol] 167 mg/dL High 0 - 99 [facility] Comment on above: Result Comment: . NEAR BORD AGE DESIRABLE OPTIMAL HIGH HIGH VERY HIGH 0-19 Y 0 - 109 --- 110-129 >/= 130 ---- 20-24 Y 0 - 119 --- 120-159 >/= 160 ---- >24 Y 0 - 99 100-129 130-159 160-189 >/=190 . Performed By: #### L IPID #### [facility] [address] [place] [address] Cholesterol in VLDL [Mass/Vol] 19 mg/dL Normal 0 - 40 [facility] Comment on above: Performed By: #### L IPID #### [facility] [address] [place] [address] Cholesterol.total/C holesterol in HDL [Mass ratio] 4.3 {ratio} Normal [facility] Comment on above: Result Comment: REF VALUES DESIRABLE < 3.4 HIGH RISK > 5.0 Performed By: #### L IPID #### [facility] [address] [place] [address] Triglyceride [Mass/Vol] 96 mg/dL Normal 0 - 149 [facility] Comment on above: Result Comment: . AGE DESIRABLE BORDERLINE HIGH HIGH VERY HIGH 0 D-90 D 19 - 174 ---- ---- ---- 91 D- 9 Y 0 - 74 75 - 99 >/= 100 ---- 10-19 Y 0 - 89 90 - 129 >/= 130 ---- 20-24 Y 0 - 114 115 - 149 >/= 150 ---- >24 Y 0 - 149 150 - 199 200- 499 >/= 500 . Venipuncture immediately after or during the administration of Metamizole may lead to falsely low results. Testing should be performed immediately prior to Metamizole dosing. Performed By: #### L IPID #### [facility] [address] [place] [address] Laboratory - Chemistry and C hemistry - challengeon 01-13-2022 Albumin BCP dye [Mass/Vol] 4.3 g/dL 3.4 - 5.0 [facility] Work Phone: ALP [Catalytic activity/Vol] 46 U/L 33 - 136 [facility] Work Phone: ALT With P-5'-P [Catalytic activity/Vol] 16 U/L 7 - 45 [facility] Work Phone: Comment on above: Patients treated wit h Sulfasalazine may generate falsely decreased results for ALT. Anion gap [Moles/Vol] 13 mmol/L 10 - 20 [facility] Work Phone: AST With P-5'-P [Catalytic activity/Vol] 19 U/L 9 - 39 [facility] Work Phone: Bilirubin [Mass/Vol] 0.5 mg/dL 0.0 - 1.2 [facility] Work Phone: Calcium [Mass/Vol] 9.4 mg/dL 8.6 - 10.6 [facility] Work Phone: Chloride [Moles/Vol] 107 mmol/L 98 - 107 [facility] Work Phone: CO2 [Moles/Vol] 27 mmol/L 21 - 32 [facility] Work Phone: Creatinine [Mass/Vol] 0.80 mg/dL See Below [facility] Work Phone: Comment on above: Reference Range: 0.5 0 - 1.05 Glucose [Mass/Vol] 95 mg/dL 74 - 99 [facility] Work Phone: Potassium [Moles/Vol] 4.5 mmol/L 3.5 - 5.3 [facility] Work Phone: Protein [Mass/Vol] 7.0 g/dL 6.4 - 8.2 [facility] Work Phone: Sodium [Moles/Vol] 142 mmol/L 136 - 145 [facility] Work Phone: Urea nitrogen [Mass/Vol] 17 mg/dL 6 - 23 [facility] Work Phone: Lipid Panelon 01-13-2022 Cholesterol [Mass/Vol] 242 mg/dL above high threshold 0 - 199 [facility] Work Phone: Comment on above: . AGE DESIRABLE BORD JEAN HIGH HIGH 0-19 Y 0 - 169 170 - 199 >/= 200 20-24 Y 0 - 189 190 - 224 >/= 225 >24 Y 0 - 199 200 - 239 >/= 240 All ranges are based on fasting samples. Specific therapeutic targets will vary based on patient-specific cardiac risk.. Pediatric guidelines reference:Pediatrics 2011, 128(S5). Adult guidelines reference: NCEP ATPIII Guidelines, GRETCHEN 2001, 258:2486-97. Venipuncture immediately after or during the administration of Metamizole may lead to falsely low results. Testing should be performed immediately prior to Metamizole dosing. Cholesterol in HDL [Mass/Vol] 56.0 mg/dL [facility] Work Phone: Comment on above: . AGE VERY LOW LOW N ORMAL HIGH 0-19 Y < 35 < 40 40-45 ---- 20- 24 Y ---- < 40 >45 ---- >24 Y ---- < 40 40-60 >60. Cholesterol in LDL [Mass/Vol] 167 mg/dL above high threshold 0 - 99 [facility] Work Phone: Comment on above: . NEAR BORD AGE CARLOS MANUEL RABLE OPTIMAL HIGH HIGH VERY HIGH 0-19 Y 0 - 109 --- 110-129 >/= 130 ---- 20-24 Y 0 - 119 --- 120-159 >/= 160 ---- >24 Y 0 - 99 100-129 130-159 160-189 >/=190. Cholesterol.total/C holesterol in HDL [Mass ratio] 4.3 {ratio} [facility] Work Phone: Comment on above: REF VALUESDESIRABLE < 3.4HIGH RISK > 5.0 Triglyceride [Mass/Vol] 96 mg/dL 0 - 149 [facility] Work Phone: Comment on above: . AGE DESIRABLE BORD JEAN HIGH HIGH VERY HIGH 0 D-90 D 19 - 174 ---- ---- ----91 D- 9 Y 0 - 74 75 - 99 >/= 100 ---- 10-19 Y 0 - 89 90 - 129 >/= 130 ---- 20-24 Y 0 - 114 115 - 149 >/= 150 ---- >24 Y 0 - 149 150 - 199 200- 499 >/= 500. Venipuncture immediately after or during the administration of Metamizole may lead to falsely low results. Testing should be performed immediately prior to Metamizole dosing. Lipid Panel 19 mg/dL 0 - 40 [facility] Work Phone: No Panel Informationon 01-13 76 {mL/min/1.73m2} >90 [facility] Work Phone: Comment on above: CALCULATIONS OF [place] MATED GFR ARE PERFORMED USING THE 2020 CKD-EPI STUDY REFIT EQUATION WITHOUT THE RACE VARIABLE FOR THE IDMS-TRACEABLE CREATININE METHODS.https://jasn.asnjournals.org/content//ASN. 6846259716 T4 - Free Thyroxine, Serumon 01-13-2022 Free T4 [Mass/Vol] 1.30 ng/dL See Below [facility] Work Phone: Comment on above: Reference Range: 0.7 8 - 1.48 Thyroxine Free testing is performed using different testing methodology at [facility] than at other [facility]. Direct result comparisons should only be made within the same method. THYROXINE,FREEon 01-13-2022 THYROXINE,FREE 1.30 ng/dL Normal 0.78 - 1.48 [facility] Comment on above: Result Comment: Thyr oxine Free testing is performed using different testing methodology at [facility] than at other [facility]. Direct result comparisons should only be made within the same method. Performed By: #### T 4FRE #### [facility] [address] [place] [address] TSH - Thyroid Stimulating Ho rmone, Serumon 01-13-2022 TSH Qn 0.43 m[IU]/L below low threshold See Below [facility] Work Phone: Comment on above: Reference Range: 0.4 4 - 3.98 TSH testing is performed using different testing methodology at [facility] than at other [facility]. Direct result comparisons should only be made within the same method. TREVA SCREENINGon 08-19-2021 [facility] Radiologyon 08-19-2021 MG Breast Screening Normal [facility] Work Phone: Medicare Annual Wellness Vis iton 07-23-2021 Medicare Annual Wellness Visit History of Present Illness The patient is being seen for the subsequent annual wellness visit. Past Medical, Surgical and Family History: reviewed and updated in chart. Interval History: Patient has not been hospitalized previously. Medications and Supplements: Review of all medications by a prescribing practitioner or clinical pharmacist (such as prescriptions, OTCs, herbal therapies and supplements) documented in the medical record. No, the patient is not using opioids. Patient Self Assessment of Health Status: good. Tobacco use: Non-User Alcohol use: Non-User Illicit drug use: Non-User Current diet: well balanced diet. Exercise Frequency: infrequently. Depression/Suicide Screening: . Hearing Impairment: none. Cognitive Impairment: No cognitive impairment observed, patient or family reported no cognitive impairment. Bathing: performs independently. Dressing: performs independently. Walking: performs independently. Bowels: continent. Bladder: continent. Managing Finances: performs independently. Shopping: performs independently. Managing Medications: performs independently. Housework / Basic Home Maintenance: performs independently. Falls Risk Screening:. ERLINDA has not fallen in the last 6 months. Home safety risk factors: none. Advance directives:. Advance Care Planning discussed and documented in the medical record, patient did not wish or was not able to name a surrogate decision maker or provide an advance care plan. Patient has no living will. Patient has no healthcare POA. EP. Here for AMCR. Ears feel plugged. Erlinda is a 76 year old female presenting today for an annual Medicare wellness exam visit. -Sinuses have been draining so bad driving me nuts -Took Mucinex, nasal spray, and a regular antihistamine as well. -Now its draining into her ears causing ear fullness and difficulty hearing. -This has been going on for 10 days now. -Saw urologist (Karen) and had bladder lift alongside hysterectomy(Dr. Fleming) in April, which has helped the urine incontinence . -Still working on bladder control. -Defers colonoscopy, but states she did an in home [place]-guard test instead not long ago. Review of Systems General: no fever or night sweats, no change in weight Eyes: no vision disturbance ENT: no hearing loss, no hoarseness, no mouth lesions, no sore throat, and no dysphagia CV: no chest pain, no palpitations, no lower extremity edema Resp: no shortness of breath, no cough GI: no abdominal pain, no change in bowel habits : no urinary problems MSK: no arthralgias, myalgias, or back pain Skin; no rashes or new/changed skin lesions Neuro: no headache, no difficulty walking *Active Problems Abdominal discomfort (789.00) (R10.9) Abnormal mammogram (793.80) (R92.8) Acute back pain (724.5) (M54.9) Acute pharyngitis (462) (J02.9) Acute sinusitis (461.9) (J01.90) Acute URI (465.9) (J06.9) Acute UTI (599.0) (N39.0) Arm pain (729.5) (M79.603) Colon cancer screening (V76.51) (Z12.11) Cutaneous candidiasis (112.3) (B37.2) Depression (311) (F32.A) Depression Depression (311) (F32.A) Depression Depression (311) (F32.A) Depression Depression (311) (F32.A) Depression Dermatitis (692.9) (L30.9) Disorder of bone density and structure, unspecified (733.90) (M85.9) Dysuria (788.1) (R30.0) Frequent urination (788.41) (R35.0) Hyperlipidemia (272.4) (E78.5) Hypertension (401.9) (I10) Hypothyroidism (244.9) (E03.9) Leucopenia (288.50) (D72.819) Osteopenia (733.90) (M85.80) Postmenopausal (V49.81) (Z78.0) Recurrent UTI (599.0) (N39.0) Screening cholesterol level (V77.91) (Z13.220) Screening for cancer of the rectum (V76.41) (Z12.12) Sinobronchitis (473.9,490) (J32.9,J40) Sinusitis (473.9) (J32.9) Tendonitis (726.90) (M77.9) URTI (acute upper respiratory infection) (465.9) (J06.9) Added by Problem List Migration; 2012-04-25; Moved to [facility] Jan 22 2013 9:15PM Visit for screening mammogram (V76.12) (Z12.31) Past Medical History History of hypertension (V12.59) (Z86.79) History of hypothyroidism (V12.29) (Z86.39) Surgical History History of Knee Surgery Family History Family history of Adenocarcinoma Of The Breast With Squamous Metaplasia (V16.3) Family history of Lump Or Mass In Breast Family history of Diabetes Mellitus (V18.0) Social History Alcohol Use (History) Caffeine Use Marital History - Never smoker *Allergies Aspirin TABS Wheezing;; Updated By: Ana Carlos; 05/12/2012 3:28:27 PM Milk, Cow Recorded By: Diandra Lester; 11/12/2019 10:49:29 AM *Current Meds Medication NameInstruction Alendronate Sodium 70 MG Oral TabletTAKE 1 TABLET ONCE WEEKLY. Metoprolol Tartrate 50 MG Oral Tablettake 1 tablet by mouth once daily Sertraline HCl - 50 MG Oral TabletTAKE 1 TABLET DAILY DIRECTED. Synthroid 125 MCG Oral TabletTAKE 1 TABLET DAILY DIRECTED. Immunizations Influenza --- Series1: Dec (more content not included)... Normal [facility] Tobacco Screening.on 022 Tobacco use status [facility] b) No [facility] Work Phone: CBC AND DIFFERENTIALon 07-20 % AUTOMATED IMMATURE GRAN 0.0 % Normal 0.0 - 0.9 [facility] Comment on above: Result Comment: Brianna ture Granulocyte Count (IG) includes promyelocytes, myelocytes and metamyelocytes but does not include bands. Percent differential counts (%) should be interpreted in the context of the absolute cell counts (cells/L). Performed By: #### C BCDF #### [facility] [address] [place] [address] Basophils (Bld) [#/Vol] 0.03 10*3/uL Normal 0.00 - 0.10 [facility] Comment on above: Performed By: #### C BCDF #### [facility] [address] [place] [address] Basophils/100 WBC (Bld) 0.8 % Normal 0.0 - 2.0 [facility] Comment on above: Performed By: #### C BCDF #### [facility] [address] [place] [address] Eosinophils (Bld) [#/Vol] 0.11 10*3/uL Normal 0.00 - 0.40 [facility] Comment on above: Performed By: #### C BCDF #### [facility] [address] [place] [address] Eosinophils/100 WBC (Bld) 2.8 % Normal 0.0 - 6.0 [facility] Comment on above: Performed By: #### C BCDF #### [facility] [address] [place] [address] Erythrocyte distribution width (RBC) [Ratio] 13.2 % Normal 11.5 - 14.5 [facility] Comment on above: Performed By: #### C BCDF #### [facility] [address] [place] [address] Hematocrit (Bld) [Volume fraction] 43.7 % Normal 36.0 - 46.0 [facility] Comment on above: Performed By: #### C BCDF #### [facility] [address] [place] [address] Hemoglobin (Bld) [Mass/Vol] 13.1 g/dL Normal 12.0 - 16.0 [facility] Comment on above: Performed By: #### C BCDF #### [facility] [address] [place] [address] Lymphocytes (Bld) [#/Vol] 1.90 10*3/uL Normal 0.80 - 3.00 [facility] Comment on above: Performed By: #### C BCDF #### [facility] [address] [place] [address] Lymphocytes/100 WBC (Bld) 47.6 % Normal 13.0 - 44.0 [facility] Comment on above: Performed By: #### C BCDF #### [facility] [address] [place] [address] MCHC (RBC) [Mass/Vol] 30.0 g/dL Low 32.0 - 36.0 [facility] Comment on above: Performed By: #### C BCDF #### [facility] [address] [place] [address] MCV (RBC) [Entitic vol] 99 fL Normal 80 - 100 [facility] Comment on above: Performed By: #### C BCDF #### [facility] [address] [place] [address] Monocytes (Bld) [#/Vol] 0.35 10*3/uL Normal 0.05 - 0.80 [facility] Comment on above: Performed By: #### C BCDF #### [facility] [address] [place] [address] Monocytes/100 WBC (Bld) 8.8 % Normal 2.0 - 10.0 [facility] Comment on above: Performed By: #### C BCDF #### [facility] [address] [place] [address] Neutrophils (Bld) [#/Vol] 1.60 10*3/uL Normal 1.60 - 5.50 [facility] Comment on above: Performed By: #### C BCDF #### [facility] [address] [place] [address] Neutrophils/100 WBC (Bld) 40.0 % Normal 40.0 - 80.0 [facility] Comment on above: Performed By: #### C BCDF #### [facility] [address] [place] [address] NUCLEATED RBC 0.0 /100 WBC Normal 0.0-0.0 [facility] Comment on above: Performed By: #### C BCDF #### [facility] [address] [place] [address] Platelets (Bld) [#/Vol] 288 10*3/uL Normal 150 - 450 [facility] Comment on above: Performed By: #### C BCDF #### [facility] [address] [place] [address] RBC 4.41 x10E12/L Normal 4.00 - 5.20 [facility] Comment on above: Performed By: #### C BCDF #### [facility] [address] [place] [address] WBC (Bld) [#/Vol] 4.0 10*3/uL Low 4.4 - 11.3 [facility] Comment on above: Performed By: #### C BCDF #### [facility] [address] [place] [address] COMPREHENSIVE PANELon 2021 Albumin [Mass/Vol] 3.9 g/dL Normal 3.4 - 5.0 [facility] Comment on above: Performed By: #### C MP #### [facility] [address] [place] [address] ALP [Catalytic activity/Vol] 36 U/L Normal 33 - 136 [facility] Comment on above: Performed By: #### C MP #### [facility] [address] [place] [address] ALT [Catalytic activity/Vol] 17 U/L Normal 7 - 45 [facility] Comment on above: Result Comment: Macy ents treated with Sulfasalazine may generate falsely decreased results for ALT. Performed By: #### C MP #### [facility] [address] [place] [address] Anion gap [Moles/Vol] 13 mmol/L Normal 10 - 20 [facility] Comment on above: Performed By: #### C MP #### [facility] [address] [place] [address] AST [Catalytic activity/Vol] 19 U/L Normal 9 - 39 [facility] Comment on above: Performed By: #### C MP #### [place] [address] [place] [address] Bilirubin [Mass/Vol] 0.5 mg/dL Normal 0.0 - 1.2 [facility] Comment on above: Performed By: #### C MP #### [facility] [address] [place] [address] Calcium [Mass/Vol] 8.9 mg/dL Normal 8.6 - 10.6 [facility] Comment on above: Performed By: #### C MP #### [facility] [address] [place] [address] Chloride [Moles/Vol] 110 mmol/L High 98 - 107 [facility] Comment on above: Performed By: #### C MP #### [place] [address] [place] [address] Creatinine [Mass/Vol] 0.60 mg/dL Normal 0.50 - 1.05 [facility] Comment on above: Performed By: #### C MP #### [facility] [address] [place] [address] eGFR FEMALE >90 Normal >90 [facility] Comment on above: Result Comment: CALC ULATIONS OF ESTIMATED GFR ARE PERFORMED USING THE 2020 CKD-EPI STUDY REFIT EQUATION WITHOUT THE RACE VARIABLE FOR THE IDMS-TRACEABLE CREATININE METHODS. https://jasn.asnjournals.org/content//ASN.20870735 88 Performed By: #### C MP #### [facility] [address] [place] [address] Glucose [Mass/Vol] 102 mg/dL High 74 - 99 [facility] Comment on above: Performed By: #### C MP #### [facility] [address] [place] [address] HCO3 (Bld) [Moles/Vol] 25 mmol/L Normal 21 - 32 [facility] Comment on above: Performed By: #### C MP #### [facility] [address] [place] [address] Potassium [Moles/Vol] 4.0 mmol/L Normal 3.5 - 5.3 [facility] Comment on above: Performed By: #### C MP #### [facility] [address] [place] [address] Protein [Mass/Vol] 6.4 g/dL Normal 6.4 - 8.2 [facility] Comment on above: Performed By: #### C MP #### [facility] [address] [place] [address] Sodium [Moles/Vol] 144 mmol/L Normal 136 - 145 [facility] Comment on above: Performed By: #### C MP #### [facility] [address] [place] [address] Urea nitrogen [Mass/Vol] 12 mg/dL Normal 6 - 23 [facility] Comment on above: Performed By: #### C MP #### [facility] [address] [place] [address] Complete Blood Count + Diffe josh 07-20-2021 Basophils/100 WBC (Bld) 0.8 % 0.0 - 2.0 [facility] Work Phone: Erythrocyte distribution width (RBC) [Ratio] 13.2 % See Below [facility] Work Phone: Comment on above: Reference Range: 11. 5 - 14.5 Hematocrit (Bld) [Volume fraction] 43.7 % See Below [facility] Work Phone: Comment on above: Reference Range: 36. 0 - 46.0 Hemoglobin (Bld) [Mass/Vol] 13.1 g/dL See Below [facility] Work Phone: Comment on above: Reference Range: 12. 0 - 16.0 Lymphocytes/100 WBC (Bld) 47.6 % See Below [facility] Work Phone: Comment on above: Reference Range: 13. 0 - 44.0 MCHC (RBC) [Mass/Vol] 30.0 g/dL below low threshold See Below [facility] Work Phone: Comment on above: Reference Range: 32. 0 - 36.0 MCV (RBC) [Entitic vol] 99 fL 80 - 100 [facility] Work Phone: Monocytes/100 WBC (Bld) 8.8 % 2.0 - 10.0 [facility] Work Phone: Neutrophils/100 WBC (Bld) 40.0 % See Below [facility] Work Phone: Comment on above: Reference Range: 40. 0 - 80.0 Platelets (Bld) [#/Vol] 288 10*3/uL 150 - 450 [facility] Work Phone: RBC (Bld) [#/Vol] 4.41 {x10E12/L} See Below [facility] Work Phone: Comment on above: Reference Range: 4.0 0 - 5.20 WBC (Bld) [#/Vol] 4.0 10*3/uL below low threshold 4.4 - 11.3 [facility] Work Phone: Complete Blood Count + Differential 0.03 {x10E9/L} See Below [facility] Work Phone: Comment on above: Reference Range: 0.0 0 - 0.10 Complete Blood Count + Differential 0.11 {x10E9/L} See Below [facility] Work Phone: Comment on above: Reference Range: 0.0 0 - 0.40 Complete Blood Count + Differential 0.35 {x10E9/L} See Below [facility] Work Phone: Comment on above: Reference Range: 0.0 5 - 0.80 Complete Blood Count + Differential 1.90 {x10E9/L} See Below [facility] Work Phone: Comment on above: Reference Range: 0.8 0 - 3.00 Complete Blood Count + Differential 1.60 {x10E9/L} See Below [facility] Work Phone: Comment on above: Reference Range: 1.6 0 - 5.50 Complete Blood Count + Differential 2.8 % 0.0 - 6.0 [facility] Work Phone: Complete Blood Count + Differential 0.0 % 0.0 - 0.9 [facility] Work Phone: Comment on above: Immature Granulocyte Count (IG) includes promyelocytes, myelocytes and metamyelocytes but does not include bands. Percent differential counts (%) should be interpreted in the context of the absolute cell counts (cells/L). Complete Blood Count + Differential 0.0 {/100_WBC} 0.0-0.0 [facility] Work Phone: LIPID PANEL (CORONARY RISK 2 )on 07-20-2021 Cholesterol [Mass/Vol] 206 mg/dL High 0 - 199 [facility] Comment on above: Result Comment: . AGE DESIRABLE BORDERLINE HIGH HIGH 0-19 Y 0 - 169 170 - 199 >/= 200 20-24 Y 0 - 189 190 - 224 >/= 225 >24 Y 0 - 199 200 - 239 >/= 240 All ranges are based on fasting samples. Specific therapeutic targets will vary based on patient-specific cardiac risk. . Pediatric guidelines reference:Pediatrics 2011, 128(S5). Adult guidelines reference: NCEP ATPIII Guidelines, GRETCHEN 2001, 258:2486-97 . Venipuncture immediately after or during the administration of Metamizole may lead to falsely low results. Testing should be performed immediately prior to Metamizole dosing. Performed By: #### L IPID #### [facility] [address] [place] [address] Cholesterol in HDL [Mass/Vol] 44.1 mg/dL Normal [facility] Comment on above: Result Comment: . AGE VERY LOW LOW NORMAL HIGH 0-19 Y < 35 < 40 40-45 ---- 20-24 Y ---- < 40 >45 ---- >24 Y ---- < 40 40-60 >60 . Performed By: #### L IPID #### [facility] [address] [place] [address] Cholesterol in LDL [Mass/Vol] 139 mg/dL High 0 - 99 [facility] Comment on above: Result Comment: . NEAR BORD AGE DESIRABLE OPTIMAL HIGH HIGH VERY HIGH 0-19 Y 0 - 109 --- 110-129 >/= 130 ---- 20-24 Y 0 - 119 --- 120-159 >/= 160 ---- >24 Y 0 - 99 100-129 130-159 160-189 >/=190 . Performed By: #### L IPID #### [facility] [address] [place] [address] Cholesterol in VLDL [Mass/Vol] 23 mg/dL Normal 0 - 40 [facility] Comment on above: Performed By: #### L IPID #### [facility] [address] [place] [address] Cholesterol.total/C holesterol in HDL [Mass ratio] 4.7 {ratio} Normal [facility] Comment on above: Result Comment: REF VALUES DESIRABLE < 3.4 HIGH RISK > 5.0 Performed By: #### L IPID #### [facility] [address] [place] [address] Triglyceride [Mass/Vol] 115 mg/dL Normal 0 - 149 [facility] Comment on above: Result Comment: . AGE DESIRABLE BORDERLINE HIGH HIGH VERY HIGH 0 D-90 D 19 - 174 ---- ---- ---- 91 D- 9 Y 0 - 74 75 - 99 >/= 100 ---- 10-19 Y 0 - 89 90 - 129 >/= 130 ---- 20-24 Y 0 - 114 115 - 149 >/= 150 ---- >24 Y 0 - 149 150 - 199 200- 499 >/= 500 . Venipuncture immediately after or during the administration of Metamizole may lead to falsely low results. Testing should be performed immediately prior to Metamizole dosing. Performed By: #### L IPID #### [facility] [address] [place] [address] Laboratory - Chemistry and C hemistry - challengeon 07-20-2021 Albumin BCP dye [Mass/Vol] 3.9 g/dL 3.4 - 5.0 [facility] Work Phone: ALP [Catalytic activity/Vol] 36 U/L 33 - 136 [facility] Work Phone: ALT With P-5'-P [Catalytic activity/Vol] 17 U/L 7 - 45 [facility] Work Phone: Comment on above: Patients treated wit h Sulfasalazine may generate falsely decreased results for ALT. Anion gap [Moles/Vol] 13 mmol/L 10 - 20 [facility] Work Phone: AST With P-5'-P [Catalytic activity/Vol] 19 U/L 9 - 39 [facility] Work Phone: Bilirubin [Mass/Vol] 0.5 mg/dL 0.0 - 1.2 [facility] Work Phone: Calcium [Mass/Vol] 8.9 mg/dL 8.6 - 10.6 [facility] Work Phone: Chloride [Moles/Vol] 110 mmol/L above high threshold 98 - 107 [facility] Work Phone: CO2 [Moles/Vol] 25 mmol/L 21 - 32 [facility] Work Phone: Creatinine [Mass/Vol] 0.60 mg/dL See Below [facility] Work Phone: Comment on above: Reference Range: 0.5 0 - 1.05 Glucose [Mass/Vol] 102 mg/dL above high threshold 74 - 99 [facility] Work Phone: Potassium [Moles/Vol] 4.0 mmol/L 3.5 - 5.3 [facility] Work Phone: Protein [Mass/Vol] 6.4 g/dL 6.4 - 8.2 [facility] Work Phone: Sodium [Moles/Vol] 144 mmol/L 136 - 145 [facility] Work Phone: Urea nitrogen [Mass/Vol] 12 mg/dL - [facility] Work Phone: Lipid Panelon 07-20-2021 Cholesterol [Mass/Vol] 206 mg/dL above high threshold 0 - 199 [facility] Work Phone: Comment on above: . AGE DESIRABLE BORD JEAN HIGH HIGH 0-19 Y 0 - 169 170 - 199 >/= 200 20-24 Y 0 - 189 190 - 224 >/= 225 >24 Y 0 - 199 200 - 239 >/= 240 All ranges are based on fasting samples. Specific therapeutic targets will vary based on patient-specific cardiac risk.. Pediatric guidelines reference:Pediatrics 2011, 128(S5). Adult guidelines reference: NCEP ATPIII Guidelines, GRETCHEN 2001, 258:2486-97. Venipuncture immediately after or during the administration of Metamizole may lead to falsely low results. Testing should be performed immediately prior to Metamizole dosing. Cholesterol in HDL [Mass/Vol] 44.1 mg/dL [facility] Work Phone: Comment on above: . AGE VERY LOW LOW N ORMAL HIGH 0-19 Y < 35 < 40 40-45 ---- 20- 24 Y ---- < 40 >45 ---- >24 Y ---- < 40 40-60 >60. Cholesterol in LDL [Mass/Vol] 139 mg/dL above high threshold 0 - 99 [facility] Work Phone: Comment on above: . NEAR BORD AGE CARLOS MANUEL RABLE OPTIMAL HIGH HIGH VERY HIGH 0-19 Y 0 - 109 --- 110-129 >/= 130 ---- 20-24 Y 0 - 119 --- 120-159 >/= 160 ---- >24 Y 0 - 99 100-129 130-159 160-189 >/=190. Cholesterol.total/C holesterol in HDL [Mass ratio] 4.7 {ratio} [facility] Work Phone: Comment on above: REF VALUESDESIRABLE < 3.4HIGH RISK > 5.0 Triglyceride [Mass/Vol] 115 mg/dL 0 - 149 [facility] Work Phone: Comment on above: . AGE DESIRABLE BORD JEAN HIGH HIGH VERY HIGH 0 D-90 D 19 - 174 ---- ---- ----91 D- 9 Y 0 - 74 75 - 99 >/= 100 ---- 10-19 Y 0 - 89 90 - 129 >/= 130 ---- 20-24 Y 0 - 114 115 - 149 >/= 150 ---- >24 Y 0 - 149 150 - 199 200- 499 >/= 500. Venipuncture immediately after or during the administration of Metamizole may lead to falsely low results. Testing should be performed immediately prior to Metamizole dosing. Lipid Panel 23 mg/dL 0 - 40 [facility] Work Phone: No Panel Informationon 07-20 >90 >90 [facility] Work Phone: Comment on above: CALCULATIONS OF [place] MATED GFR ARE PERFORMED USING THE 2020 CKD-EPI STUDY REFIT EQUATION WITHOUT THE RACE VARIABLE FOR THE IDMS-TRACEABLE CREATININE METHODS.https://jasn.asnjournals.org/content/early//ASN. 9761946125 T4 - Free Thyroxine, Serumon 07-20-2021 Free T4 [Mass/Vol] 1.32 ng/dL See Below [facility] Work Phone: Comment on above: Reference Range: 0.7 8 - 1.48 Thyroxine Free testing is performed using different testing methodology at [facility] than at other [facility]. Direct result comparisons should only be made within the same method. THYROXINE,FREEon 07-20-2021 THYROXINE,FREE 1.32 ng/dL Normal 0.78 - 1.48 [facility] Comment on above: Result Comment: Thyr oxine Free testing is performed using different testing methodology at [facility] than at [facility]. Direct result comparisons should only be made within the same method. Performed By: #### T 4FRE #### [facility] [address] [place] [address] TSHon 07-20-2021 TSH Qn 0.59 m[IU]/L Normal 0.44 - 3.98 [facility] Comment on above: Result Comment: TSH testing is performed using different testing methodology at [facility] than at other [facility]. Direct result comparisons should only be made within the same method. Performed By: #### T SH2 #### [facility] [address] [place] [address] TSH - Thyroid Stimulating Ho rmone, Serumon 07-20-2021 TSH Qn 0.59 m[IU]/L See Below [facility] Work Phone: Comment on above: Reference Range: 0.4 4 - 3.98 TSH testing is performed using different testing methodology at [facility] than at other [facility]. Direct result comparisons should only be made within the same method. Cult, Urineon 10-13-2020 Bacteria identified Cx Nom (U) [facility] Work Phone: IO UA (automated w/o microsc opy)on 10-13-2020 Protein (U) [Mass/Vol] 30 mg/dL [facility] Work Phone: IO UA (automated w/o microscopy) (++) [facility] Work Phone: IO UA (automated w/o microscopy) Normal [facility] Work Phone: IO UA (automated w/o microscopy) 5.0 1 [facility] Work Phone: IO UA (automated w/o microscopy) (+)small - 15 [facility] Work Phone: IO UA (automated w/o microscopy) 1.010 1 [facility] Work Phone: IO UA (automated w/o microscopy) Negative [facility] Work Phone: IO UA (automated w/o microscopy) Cloudy [facility] Work Phone: IO UA (automated w/o microscopy) Yellow [facility] Work Phone: Tobacco Screening.on 021 Tobacco use status [facility] b) No -[facility] Work Phone: Tobacco Screening.on 021 Tobacco use status [facility] b) No -[place] [facility] Work Phone: BD DXA - AXIAL SKELETONon BD DXA - AXIAL SKELETON Final Report DATE OF EXAM: Dec 12 2019 3:52PM LDX 0804 - BD DXA - AXIAL SKELETON - LEFT / PROCEDURE REASON: Screening Physician Interpretation EXAM TITLE: BONE MINERAL DENSITOMETRY COMPARISON:None CLINICAL INDICATION/HISTORY: Postmenopausal TECHNIQUE: DXA Canevaflor-Metaforic v,11.4 examination was performed on the lumbar spine and hip. FINDINGS: 1. L1-L3 BMD is 1.3 g/cm2 which is 108% of peak bone mass compared to young normals which is 0.8 standard deviations relative to the mean of young normals (T-score). According to the World Health Organization criteria, this would be classified as normal . 2. Left hip BMD is 0.86 g/cm2 which is 85% of peak bone mass compared to young normals which is -1.2 standard deviations relative to the mean of young normals (T-score). According to the World Health Organization criteria, this would be classified as osteopenia. 3. Left femoral neck BMD is 0.75 g/cm2 which is 73% of peak bone mass compared to young normals which is -2 standard deviations relative to the mean of young normals (T-score). According to the World Health Organization criteria, this would be classified as osteopenia. IMPRESSION: There is osteopenia within the assessed regions. RELATIVE FRACTURE RISK TABLE NOTE: This table applies to post-menopausal females. T-score Fracture risk 0 average risk for normal 40 year old -1 2 times the normal -2 4 times the normal -3 8 times the normal etc. GENERAL RECOMMENDATIONS FOR PREVENTION OF BONE LOSS: 1. 1200 mg - 1500 mg calcium per day if no history of renal calculi for adults 50 years and over. 2. 800 - 1000 International Units of vitamin D3 per day if no history of renal calculi for adults 50 years and over. 3. Weight bearing exercise 4. Discontinue smoking 5. Avoid excessive use of caffeine, soft drinks, and alcoholic beverages. The National Osteoporosis Foundation recommends that treatment be considered for patients with T-scores of -2 or lower (-1 or lower if patient at high risk for accelerated bone loss). Power Generation Plant Operator: JOSE MIGUEL Transcribe Date/Time: Dec 13 2019 3:44P Dictated by : ABIMAEL HANKINS MD This examination was interpreted and the report reviewed and electronically signed by: ABIMAEL HANKINS MD on Dec 13 2019 3:48PM EST Normal [facility] [place] 12-12-2019 [facility] SCREENING Final Report DATE OF EXAM: Dec 12 2019 3:49PM LDW [id number] - [facility] SCREENING / PROCEDURE REASON: Screening Physician Interpretation #[id number] - [facility] SCREENING BILATERAL DIGITAL SCREENING MAMMOGRAM WITH CAD: 12/12/2019 HISTORY: /Screening Mammogram-patient reports no symptoms. RESULT: TECHNIQUE: The study was acquired using full field digital technology and interpreted from soft copy. Current study was also evaluated with a Computer Aided Detection (CAD). Comparison is made to exams dated: 11/02/2018 mammogram - [facility], 08/30/2018 mammogram, and 07/01/2017 mammogram - [facility]. There are scattered fibroglandular elements in both breasts. No significant masses, calcifications, or other findings are seen in either breast. There has been no significant interval change. IMPRESSION: NEGATIVE There is no mammographic evidence of malignancy. A 1 year screening mammogram is recommended. Kim alexis/mei:12/12/2019 15:55:39 Videotape Sales Representative(s): Safia Eldridge (Macie)(M), [facility] letter sent: Normal over 40 Mammogram BI-RADS: 1 Negative Multiple national specialty organizations have released breast cancer screening guidelines for women at average risk for developing breast cancer - guidelines that are based on both evidence and opinion, yet differ on when to start and how often to screen for breast cancer. With representation from Breast Imaging, Internal Medicine, Women's Health, Family Medicine, and Medical/Surgical Oncology, the [facility] has carefully reviewed the data and reached the following consensus: 1) All women should engage in shared decision-making with their providers to decide when to start and how often to screen; 2) All women should have the opportunity to start screening mammography at age 40; 3) For women ages 45-55, we recommend annual screening mammograms; 4) For women ages 55 and over, we support both the transition from an annual to a biennial interval if this aligns more with patient's values and preferences, or continuation with annual screening; 5) All women should discuss with their providers when to stop screening mammograms. Power Generation Plant Operator: Mei Transcribe Date/Time: Dec 12 2019 3:13P Dictated by : KIM SAMUEL MD This examination was interpreted and the report reviewed and electronically signed by: KIM SAMUEL MD on Dec 12 2019 3:55PM EST Normal [facility] Large Joint Arthro/Inj: L sh oujason joint [facility] Vital Signs Date Time Vital Sign Value Performing Clinician Facility 07-11-2023 13:50-0400 Body height 172.7 cm Silvia Pradhan MD Work Phone: [facility] 07-11-2023 13:50-0400 Body mass index (BMI) [Ratio] 32.69 kg/m2 Silvia Pradhan MD Work Phone: [facility] 07-11-2023 13:50-0400 Body temperature 97.9 [degF] Silvia Pradhan MD Work Phone: [facility] 07-11-2023 13:50-0400 Body weight 97.52 kg Silvia Pradhan MD Work Phone: [facility] 07-11-2023 13:50-0400 Diastolic blood pressure 82 mm[Hg] Silvia Pradhan MD Work Phone: [facility] 07-11-2023 13:50-0400 Heart rate 63 /min Silvia Pradhan MD Work Phone: [facility] 07-11-2023 13:50-0400 SaO2% (BldA) [Mass fraction] 97 % Silvia Pradhan MD Work Phone: [facility] 07-11-2023 13:50-0400 Systolic blood pressure 128 mm[Hg] Silvia Pradhan MD Work Phone: [facility] 04-21-2023 13:08-0500 Body height 172.7 cm Srinivas Guadarrama PA-C Work Phone: [facility] 04-21-2023 13:08-0500 Body weight 99 kg Srinivas Guadarrama PA-C Work Phone: [facility] 04-21-2023 13:08-0500 Diastolic blood pressure 62 mm[Hg] Srinivas Guadarrama PA-C Work Phone: [facility] 04-21-2023 13:08-0500 Heart rate 59 /min Srinivas Guadarrama PA-C Work Phone: [facility] 04-21-2023 13:08-0500 SaO2% (BldA) [Mass fraction] 98 % Srinivas Guadarrama PA-C Work Phone: [facility] 04-21-2023 13:08-0500 Systolic blood pressure 136 mm[Hg] Srinivas Guadarrama PA-C Work Phone: [facility] 02-01-2023 10:33-0500 Body mass index (BMI) [Ratio] 32.84 kg/m2 Silvia Pradhan MD Work Phone: [facility] 02-01-2023 10:33-0500 Body temperature 97.59 [degF] Silvia Pradhan MD Work Phone: [facility] 02-01-2023 10:33-0500 Body weight 97.98 kg Silvia Pradhan MD Work Phone: [facility] 02-01-2023 10:33-0500 Diastolic blood pressure 82 mm[Hg] Silvia Pradhan MD Work Phone: [facility] 02-01-2023 10:33-0500 Systolic blood pressure 128 mm[Hg] Silvia Pradhan MD Work Phone: [facility] 08-02-2022 10:45-0400 Body height 172.7 cm Silvia Pradhan MD Work Phone: [facility] 08-02-2022 10:45-0400 Body mass index (BMI) [Ratio] 32.17 kg/m2 Silvia Pradhan MD Work Phone: [facility] 08-02-2022 10:45-0400 Body temperature 98.2 [degF] Silvia Pradhan MD Work Phone: [facility] 08-02-2022 10:45-0400 Body weight 95.98 kg Silvia Pradhan MD Work Phone: [facility] 08-02-2022 10:45-0400 Diastolic blood pressure 82 mm[Hg] Silvia Pradhan MD Work Phone: [facility] 08-02-2022 10:45-0400 Heart rate 55 /min Silvia Pradhan MD Work Phone: [facility] 08-02-2022 10:45-0400 SaO2% (BldA) [Mass fraction] 98 % Silvia Pradhan MD Work Phone: [facility] 08-02-2022 10:45-0400 Systolic blood pressure 132 mm[Hg] Silvia Pradhan MD Work Phone: [facility] 01-18-2022 10:14-0500 Body mass index (BMI) [Ratio] 33.05 kg/m2 Silvia Pradhan Work Phone: [facility] Work Phone: 01-18-2022 10:14-0500 Body surface area Derived from formula 2.07 m2 Silvia Pradhan Work Phone: [facility] Work Phone: 01-18-2022 10:14-0500 Body temperature 97.5 [degF] Silvia Pradhan Work Phone: [facility] Work Phone: 01-18-2022 10:14-0500 Body weight 95.71 kg Silvia Pradhan Work Phone: [facility] Work Phone: 01-18-2022 10:14-0500 Diastolic blood pressure 76 mm[Hg] Silvia Pradhan Work Phone: [facility] Work Phone: 01-18-2022 10:14-0500 Heart rate 98 /min Silvia Pradhan Work Phone: [facility] Work Phone: 01-18-2022 10:14-0500 Systolic blood pressure 128 mm[Hg] Silvia Pradhan Work Phone: [facility] Work Phone: 07-23-2021 15:03-0400 Body height 170.18 cm Silvia Pradhan Work Phone: [facility] Work Phone: 07-23-2021 15:03-0400 Body mass index (BMI) [Ratio] 32.73 kg/m2 Silvia Pradhan Work Phone: [facility] Work Phone: 07-23-2021 15:03-0400 Body surface area Derived from formula 2.06 m2 Silvia Pradhan Work Phone: [facility] Work Phone: 07-23-2021 15:03-0400 Body temperature 98.4 [degF] Silvia Pradhan Work Phone: [facility] Work Phone: 07-23-2021 15:03-0400 Body weight 94.8 kg JacintaMelina Pradhan Work Phone: [facility] Work Phone: 07-23-2021 15:03-0400 Diastolic blood pressure 72 mm[Hg] Silvia Pradhan Work Phone: [facility] Work Phone: 07-23-2021 15:03-0400 Systolic blood pressure 132 mm[Hg] Silvia Pradhan Work Phone: [facility] Work Phone: 12-05-2020 14:31-0400 Body height 170.18 cm Silvia Pradhan Work Phone: [facility] Work Phone: 12-05-2020 14:31-0400 Body mass index (BMI) [Ratio] 33.12 kg/m2 Silvia Pradhan Work Phone: [facility] Work Phone: 12-05-2020 14:31-0400 Body surface area Derived from formula 2.07 m2 Silvia Pradhan Work Phone: [facility] Work Phone: 12-05-2020 14:31-0400 Body temperature 98.5 [degF] Silvia Pradhan Work Phone: [facility] Work Phone: 12-05-2020 14:31-0400 Body weight 95.91 kg Silvia Pradhan Work Phone: [facility] Work Phone: 12-05-2020 14:31-0400 Diastolic blood pressure 68 mm[Hg] Silvia Pradhan Work Phone: [facility] Work Phone: 12-05-2020 14:31-0400 Heart rate 68 /min Silvia Pradhan Work Phone: [facility] Work Phone: 12-05-2020 14:31-0400 Respiratory rate 18 /min Silvia Pradhan Work Phone: [facility] Work Phone: 12-05-2020 14:31-0400 Systolic blood pressure 130 mm[Hg] Silvia Pradhan Work Phone: [facility] Work Phone: 10-13-2020 13:26-0400 Body mass index (BMI) [Ratio] 33.39 kg/m2 Silvia Pradhan Work Phone: [facility] Work Phone: 10-13-2020 13:26-0400 Body surface area Derived from formula 2.08 m2 Silvia Pradhan Work Phone: [facility] Work Phone: 10-13-2020 13:26-0400 Body temperature 98.1 [degF] Silvia Pradhan Work Phone: [facility] Work Phone: 10-13-2020 13:26-0400 Body weight 96.7 kg Silvia Pradhan Work Phone: [facility] Work Phone: 10-13-2020 13:26-0400 Diastolic blood pressure 74 mm[Hg] Silvia Pradhan Work Phone: [facility] Work Phone: 10-13-2020 13:26-0400 Systolic blood pressure 130 mm[Hg] Silvia Pradhan Work Phone: [facility] Work Phone: 08-12-2020 11:12-0400 Body mass index (BMI) [Ratio] 33.2 kg/m2 JacintaMelina Pradhan Work Phone: [facility] Work Phone: 08-12-2020 11:12-0400 Body surface area Derived from formula 2.07 m2 Silvia Pradhan Work Phone: [facility] Work Phone: 08-12-2020 11:12-0400 Body temperature 98.2 [degF] Silvia Pradhan Work Phone: [facility] Work Phone: 08-12-2020 11:12-0400 Body weight 96.16 kg Silvia Pradhan Work Phone: [facility] Work Phone: 08-12-2020 11:12-0400 Diastolic blood pressure 72 mm[Hg] Silvia Pradhan Work Phone: [facility] Work Phone: 08-12-2020 11:12-0400 Systolic blood pressure 128 mm[Hg] Silvia Pradhan Work Phone: [facility] Work Phone: 05-12-2020 12:06-0400 BMI (Body Mass Index) 32.13 kg/m2 Silvia Pradhan [facility] Work Phone: 05-12-2020 12:06-0400 Body Temperature 97.4 [degF] Silvia Pradhan [facility] Work Phone: 05-12-2020 12:06-0400 Body weight 93.04 kg Silvia Pradhan [facility] Work Phone: 05-12-2020 12:06-0400 BP Diastolic 78 mm[Hg] Silvia Gomesrt [facility] Work Phone: 05-12-2020 12:06-0400 BP Systolic 130 mm[Hg] Silvia Pradhan [facility] Work Phone: 05-12-2020 12:06-0400 BSA (Body Surface Area) 2.04 m2 Silvia Pradhan [facility] Work Phone: 05-12-2020 12:06-0400 Height 170.18 cm Silvia Pradhan [facility] Work Phone: 11-12-2019 12:52-0400 Body height 171.45 cm Silvia Pradhan MD [facility] Work Phone: 11-12-2019 12:52-0400 Body mass index (BMI) [Ratio] 32.08 kg/m2 Silvia Pradhan MD [facility] Work Phone: 11-12-2019 12:52-0400 Body surface area Derived from formula 2.07 m2 Silvia Pradhan MD [facility] Work Phone: 11-12-2019 12:52-0400 Body temperature 98.2 [degF] Silvia Pradhan MD [facility] Work Phone: 11-12-2019 12:52-0400 Body weight 94.3 kg Silvia Pradhan MD [facility] Work Phone: 11-12-2019 12:52-0400 Diastolic blood pressure 63 mm[Hg] Silvia Pradhan MD [facility] Work Phone: 11-12-2019 12:52-0400 Heart rate 63 /min Silvia Pradhan MD [facility] Work Phone: 11-12-2019 12:52-0400 Systolic blood pressure 138 mm[Hg] Silvia Pradhan MD [facility] Work Phone: Encounters Encounter Date Encounter Type Care Provider Facility Start: 07-28-2023 End: 07-28-2023 ambulatory [facility] Start: 07-13-2023 End: 07-13-2023 ambulatory UNKNOWN PROVIDER Facility:[facility] Start: 07-13-2023 End: 07-13-2023 Patient encounter procedure Shobha Patel PA-C Work Phone: Orthopaedics Comment on above: Pain in left hip (Pr imary Dx); Primary osteoarthritis of left hip; Trochanteric bursitis of left hip Start: 07-13-2023 End: 07-13-2023 Subsequent hospital visit by physician [facility] Work Phone: Radiology Comment on above: Pain [R52] Start: 07-11-2023 End: 07-11-2023 Patient encounter procedure Silvia Pradhan MD Work Phone: [facility] Comment on above: Health maintenance e xamination (Primary Dx); Acquired hypothyroidism; Primary hypertension; Major depressive disorder in full remission, unspecified whether recurrent (CMS-HCC); Osteopenia, unspecified location; Mixed hyperlipidemia Start: 07-11-2023 End: 07-11-2023 Patient encounter status Silvia Pradhan MD Work Phone: [facility] Work Phone: Start: 07-11-2023 End: 07-11-2023 ambulatory [facility] Start: 06-27-2023 End: 11-01-2023 Telephone encounter Srinivas Guadarrama PA-C Work Phone: [facility] Start: 05-10-2023 Telephone encounter Srinivas villareal PAColumbaC Work Phone: Neurology Comment on above: Patient Update Start: 04-27-2023 ambulatory Srinivas SKELTONC Work Phone: [facility] Comment on above: Emailing me results Start: 04-25-2023 ambulatory Srinivas Yusuf ms PA-C Work Phone: [facility] Comment on above: Muscle relaxer Start: 04-21-2023 End: 04-21-2023 ambulatory [facility] Facility:[facility] Start: 04-21-2023 End: 04-21-2023 Patient encounter procedure Srinivas Guadarrama PA-C Work Phone: [facility] Comment on above: Left buttock pain (P rimary Dx); Lumbar radiculopathy; Chronic bilateral low back pain without sciatica Start: 02-01-2023 End: 02-01-2023 Office outpatient visit 25 minutes Silvia Pradhan MD Work Phone: [facility] Comment on above: Primary hypertension (Primary Dx); Acquired hypothyroidism; Recurrent major depressive disorder, in full remission (CMS/HCC); Major depressive disorder in full remission, unspecified whether recurrent (CMS/HCC); Osteopenia, unspecified location Start: 02-01-2023 End: 02-01-2023 ambulatory [facility] Start: 01-26-2023 End: 01-26-2023 [facility] Start: 12-24-2022 Documentation procedure Mammog beata Coordinator [facility] Start: 12-24-2022 Letter encounter Mammography Coordinator [facility] NOT LISTED Start: 12-23-2022 [facility] Start: 12-23-2022 End: 12-23-2022 Subsequent hospital visit by physician Mammo/Bone Density [facility] Comment on above: Screening Start: 11-26-2022 End: 11-26-2022 ambulatory KANIKA ALEMAN Facility:[facility] Start: 11-26-2022 End: 11-26-2022 Patient encounter procedure Kanika Aleman MD Work Phone: Orthopedics Comment on above: Left shoulder pain, unspecified chronicity (Primary Dx) Start: 11-25-2022 ambulatory LIANE RIOS Facility: [facility] Start: 11-25-2022 End: 11-25-2022 Subsequent hospital visit by physician Xr [facility] Comment on above: Chronic left shoulde r pain [M25.512, G89.29] Start: 11-15-2022 Orders Only Kanika Aleman MD Work Phone: Orthopedics Comment on above: Chronic left shoulde r pain (Primary Dx) Start: 10-25-2022 Orders Only Kanika Aleman MD Work Phone: [facility] Comment on above: Pain (Primary Dx) Start: 08-02-2022 End: 08-02-2022 Assay of hemosiderin, quant Silvia Pradhan MD Work Phone: [facility] Work Phone: Start: 08-02-2022 End: 08-02-2022 Patient encounter procedure Silvia Pradhan MD Work Phone: [facility] Comment on above: Routine general [facility] examination at health care facility (Primary Dx); Breast cancer screening other than mammogram; Encounter for screening mammogram for malignant neoplasm of breast; Encounter for colorectal cancer screening; Recurrent major depressive disorder, in full remission (CMS/HCC); Osteopenia, unspecified location; Primary hypertension; Acquired hypothyroidism; Major depressive disorder in full remission, unspecified whether recurrent (CMS/HCC) Start: 01-18-[address] Silvia Pradhan Fa cility:[id number] Start: 01-18-2022 Office outpatient vi sit 25 minutes Silvia Pradhan Work Phone: [facility] Work Phone: Start: 01-11-2022 AUDIT Silvia Gomes rt Work Phone: [facility] Work Phone: Start: 11-06-2021 End: 11-06-2021 Patient encounter procedure Magdiel Teran MD Work Phone: Otolaryngology Comment on above: Hearing loss, unspec ified hearing loss type, unspecified laterality (Primary Dx); Eustachian tube disorder, bilateral Start: 08-20-2021 Chart Update Silvia Gomes rt Work Phone: [facility] Work Phone: Start: 08-19-2021 Documentation procedure Mammog beata Coordinator [facility] Start: 08-19-2021 Letter encounter Mammography Coordinator [facility] NOT LISTED Start: 08-19-2021 End: 08-19-2021 Subsequent hospital visit by physician Mammo/Bone Density [facility] Comment on above: Encounter for screen ing mammogram for malignant neoplasm of breast [Z12.31] Start: 07-25-2021 Chart Update Silvia Gomes rt Work Phone: [facility] Work Phone: Start: 07-23-[address] Silvia Pradhan Fa cility:[id number] Start: 06-15-2021 AUDIT Silvia Gomes rt Work Phone: [facility] Work Phone: Start: 12-11-2020 AUDIT Silvia Gomes rt Work Phone: [facility] Work Phone: Start: 12-05-2020 Office outpatient vi sit 25 minutes Silvia Pradhan Work Phone: [facility] Work Phone: Start: 10-13-2020 Office outpatient vi sit 15 minutes Silvia Pradhan Work Phone: [facility] Work Phone: Start: 08-12-2020 Patient encounter procedure Silvia Pradhan Work Phone: [facility] Work Phone: Start: 05-12-2020 Patient encounter procedure Silvia Pradhan [facility] Work Phone: Start: 11-12-2019 Patient encounter procedure Silvia Pradhan MD [facility] Work Phone: Start: 05-28-2019 Patient encounter procedure Silvia Pradhan [facility] Work Phone: Start: 02-02-2019 Patient encounter procedure Silvia Pradhan [facility] Work Phone: Start: 10-20-2018 Patient encounter procedure Silvia Pradhan [facility] Work Phone: Start: 08-05-2018 [facility] Work Phone: Start: 06-06-2018 Patient encounter procedure Jacinta Lorne [facility] Work Phone: Start: 02-03-2018 Patient encounter procedure Jacinta Lorne [facility] Work Phone: Start: 11-14-2017 Patient encounter procedure Jacinta Stuart [facility] Work Phone: Start: 05-31-2017 Patient encounter procedure Jacinta Lorne [facility] Work Phone: Procedures Date Procedure Procedure Detail Performing Clinician Start: 07-13-2023 Radex hip unilateral with pelvis 2-3 views Cyril Holliday MD Work Phone: Start: 01-26-2023 Comprehensive metabo lic 2000 panel - Serum or Plasma SILVIA LORNE Start: 01-26-2023 Lipid panel SILVIA LORNE Start: 01-26-2023 THYROXINE, FREE SILVIA NATHAN ART Start: 01-26-2023 Lipid 1996 panel - S maicol or Plasma Silvia Pradhan MD Work Phone: Start: 01-26-2023 Thyrotropin [Units/v olume] in Serum or Plasma Silvia Pradhan MD Work Phone: Start: 11-26-2022 Arthrocentesis aspir &/inj major jt/bursa w/o us Kanika Aleman MD Work Phone: Start: 11-25-2022 Radex shoulder compl ete minimum 2 views Liane Rios PA-C Work Phone: Start: 01-13-2022 Lipid 1996 panel - S maicol or Plasma Silvia Pradhan MD Work Phone: Start: 01-13-2022 Thyrotropin [Units/v olume] in Serum or Plasma Silvia Pradhan MD Work Phone: Start: 08-19-2021 Screening mammograph y bi 2-view breast inc cad Silvia Pradhan Work Phone: Start: 05-12-2020 Noninvasive colorect al cancer DNA and occult blood screening [Presence] in Stool Silvia Pradhan Start: 04-28-2020 Assay of free thyroxine Silvia Pradhan Start: 04-28-2020 Assay of thyroid stimulating hormone tsh Silvia Pradhan Start: 04-28-2020 Comprehensive metabo lic 2000 panel Silvia Pradhan Start: 04-28-2020 Lipid panel Silvia Pradhan History of Knee Surgery Silvia Pradhan Plan of Treatment Date Care Activity Detail Author Start: 01-27-2028 Lipid panel Lipid Panel [facility] Start: 01-13-2027 Lipid panel Lipid Panel [facility] Start: 01-26-2026 Diabetes Screening Diabetes Screenin [facility] Start: 08-06-2025 DIABETES SCREEN DIABETES SCREEN [facility] Start: 08-06-2025 Diabetes Screening Diabetes Screenin [facility] Start: 01-27-2024 Thyroid stimulating hormone measurement TSH Level [facility] Start: 12-16-2023 DIABETES SCREEN DIABETES SCREEN [facility] Start: 10-30-2023 Covid-19 Vaccine ( season) Covid-19 Vaccine ( season) [facility] Start: 10-30-2023 Influenza vaccination [facility] Start: 08-19-2023 BP CONTROLLED (<130/80) BP CONTROLLE D (<130/80) [facility] Start: 08-08-2023 End: 08-08-2023 Patient encounter procedure 08/08/2023 10:00 AM EDT Office Visit [facility] [address] [id number] Silvia Pradhan MD [address] [facility] [address] [place] [address] [facility] Start: 08-04-2023 Medicare Annual Wellness Visit Medicare Annual Wellness Visit (AWV) [facility] Start: 07-11-2023 End: 07-10-2024 CBC W Auto Differential panel - Blood CBC and Auto Differential Lab Routine Primary hypertension Expected: 07/11/2023 (Approximate), Expires: 07/10/2024 [facility] Service Area Work Phone: Comment on above: Expected: 07/11/2023 (Approximate), Expires: 07/10/2024 Start: 07-11-2023 End: 07-10-2024 Comprehensive metabolic 2000 panel - Serum or Plasma Comprehensive Metabolic Panel Lab Routine Primary hypertension Expected: 07/11/2023 (Approximate), Expires: 07/10/2024 [facility] Work Phone: Comment on above: Expected: 07/11/2023 (Approximate), Expires: 07/10/2024 Start: 07-11-2023 End: 07-10-2024 Lipid 1996 panel - Serum or Plasma Lipid Panel Lab Routine Mixed hyperlipidemia Expected: 07/11/2023 (Approximate), Expires: 07/10/2024 [facility] Work Phone: Comment on above: Expected: 07/11/2023 (Approximate), Expires: 07/10/2024 Start: 07-11-2023 End: 07-10-2024 TSH with reflex to Free T4 if abnormal TSH with reflex to Free T4 if abnormal Lab Routine Acquired hypothyroidism Expected: 07/11/2023 (Approximate), Expires: 07/10/2024 [facility] Work Phone: Comment on above: Expected: 07/11/2023 (Approximate), Expires: 07/10/2024 Start: 02-28-2023 Advance Directive Discussion Advance Directive Discussion [facility] Start: 02-01-2023 End: 02-01-2023 Patient encounter procedure 02/01/2023 10:00 AM EST Office Visit [facility] Medicine/Peds [address] [facility] [address] [place] [id number] Silvia Pradhan MD [address] [facility] [address] [place] [address] [facility] Start: 01-13-2023 Thyroid stimulating hormone measurement TSH Level [facility] Start: 10-29-2022 Covid-19 Vaccine ( season) Covid-19 Vaccine () [facility] Start: 10-29-2022 Influenza vaccination [facility] Start: 08-02-2022 End: 08-03-2023 Cologuard colon cancer screening Cologuard colon cancer screening Lab Routine Encounter for colorectal cancer screening Expected: 08/02/2022 (Approximate), Expires: 08/03/2023 [facility] Work Phone: Comment on above: Expected: 08/02/2022 (Approximate), Expires: 08/03/2023 Start: 08-02-2022 End: 10-03-2023 DBT Breast - bilateral BI mammo bilateral screening tomosynthesis Imaging Routine Breast cancer screening other than mammogram Encounter for screening mammogram for malignant neoplasm of breast Expected: 08/02/2022, Expires: 10/03/2023 [facility] Service Area Work Phone: Comment on above: Expected: 08/02/2022 , Expires: 10/03/2023 Start: 02-28-2022 ADVANCE DIRECTIVE DISCUSSION ADVANCE DIRECTIVE DISCUSSION [facility] Start: 01-18-2022 FUV, Provider: Silvia Pradhan, Status: Santosh, Time: 10:00 AM FUV, Provider: Silvia Pradhan, Status: Santosh, Time: 10:00 AM [facility] Work Phone: Start: 10-29-2021 Influenza vaccination INFLUENZA (#1) [facility] Start: 07-23-2021 Patient encounter procedure MCRANNUAL, Provider: Silvia Pradhan, Status: Pen, Time: 2:30 PM [facility] Work Phone: Start: 02-28-2021 ADVANCE DIRECTIVE DISCUSSION ADVANCE DIRECTIVE DISCUSSION [facility] Start: 02-13-2021 Pneumococcal Vaccine : 65+ (2 - PCV) Pneumococcal Vaccine: 65+ (2 - PCV) [facility] Start: 02-13-2021 Pneumococcal Vaccine : 65+ (2 of 2 - PCV) Pneumococcal Vaccine: 65+ (2 of 2 - PCV) [facility] Start: 02-13-2021 Pneumococcal Vaccine : 65+ Years (2 - PCV) Pneumococcal Vaccine: 65+ Years (2 - PCV) [facility] Start: 02-13-2021 Pneumococcal Vaccine : 65+ Years (2 of 2 - PCV) Pneumococcal Vaccine: 65+ Years (2 of 2 - PCV) [facility] Start: 02-13-2021 PNEUMOCOCCAL: 65+ (2 - PCV) PNEUMOCOCCAL: 65+ (2 - PCV) [facility] Start: 11-16-2020 COVID-19 VACCINE (3 - Booster for Pfizer series) COVID-19 VACCINE (3 - Booster for Pfizer series) [facility] Start: 08-11-2020 COVID-19 Vaccine (3 - Booster for Pfizer series) COVID-19 Vaccine (3 - Booster for Pfizer series) [facility] Start: 08-11-2020 COVID-19 VACCINE (3 - Pfizer series) COVID-19 VACCINE (3 - Pfizer series) [facility] Start: 11-12-2019 Scr mammo bi incl cad Mamm - S creening Mammogram [facility] Work Phone: Start: 11-12-2019 Xray Bone Density, D exa 1 or More Sites Xray Bone Density, Dexa 1 or More Sites [facility] Work Phone: Start: 2005 RSV patient s and/or patients aged 60+ years (1 - 1-dose 60+ series) RSV patients and/or patients aged 60+ years (1 - 1-dose 60+ series) [facility] Start: 2005 RSV Vaccine (1 - 1-d ose 60+ series) RSV Vaccine (1 - 1-dose 60+ series) [facility] Start: 05-18-1995 SHINGRIX VACCINE (1 of 2) SHINGRIX VACCINE (1 of 2) [facility] Start: 05-18-1995 Zoster Vaccines (1 o f 2) Zoster Vaccines (1 of 2) [facility] Start: 05-18-1967 DTaP/Tdap/Td Vaccine s (1 - Tdap) DTaP/Tdap/Td Vaccines (1 - Tdap) [facility] Start: 1964 Urine microalbumin profile [facility] Start: 05-18-1963 ANNUAL PCP TEAM MANUFACTURING LAB TECHNICIAN MERVIN DISEASE VISIT ANNUAL PCP TEAM CHRONIC DISEASE VISIT [facility] Start: 05-18-1963 Anxiety Screening Anxiety Screening [facility] Start: 05-18-1963 BP CONTROLLED (<130/80) BP CONTROLLE D (<130/80) [facility] Start: 05-18-1963 Diabetes mellitus screening Diabetes Screening [facility] Start: 05-18-1963 HEPATITIS C SCREENING HEPATITIS C [facility] Start: 05-18-1963 Hepatitis C screening Hepatitis C [facility] Start: 1945 Medicare Annual Wellness Visit Medicare Annual Wellness Visit (AWV) [facility] Start: 1945 Screening for osteoporosis Bone Density Scan [facility] End: 05-20-2024 XR Lumbar spine Views W flexion and W extension XR LUMBAR MOTION 4V AP/LAT/ FLEX/EXT Radiology Routine Left buttock pain Lumbar radiculopathy Chronic bilateral low back pain without sciatica 1 Occurrences starting 04/21/2023 until 05/20/2024 [facility] Work Phone: Comment on above: 1 Occurrences starti ng 04/21/2023 until 05/20/2024 End: 11-24-2023 XR SHOULDER GENERAL 3V OR MORE AP/TRUE AP/OTHER LEFT XR SHOULDER GENERAL 3V OR MORE AP/TRUE AP/OTHER LEFT Radiology Routine Pain 1 Occurrences starting 10/25/2022 until 11/24/2023 [facility] Work Phone: Comment on above: 1 Occurrences starti ng 10/25/2022 until 11/24/2023 XR SHOULDER GENERAL 3V OR MORE AP/TRUE AP/OTHER LEFT XR SHOULDER GENERAL 3V OR MORE AP/TRUE AP/OTHER LEFT Radiology Routine Chronic left shoulder pain 1 Occurrences starting 11/15/2022 [facility] Work Phone: Comment on above: 1 [facility]ur[facility]i ng [facility] Immunizations Immunization Date Immunization Notes Care Provider Jim [email or web address] 01-18-2022 influenza, injectabl e, quadrivalent, preservative free; Translations: [Fluzone Quadrivalent 0.5 ML Intramuscular Suspension Prefilled Syringe] Silvia Pradhan Work Phone: [facility] Work Phone: Comment on above: Series: 01-18-2022 influenza virus vacc ine, unspecified formulation Kanika Aleman MD Work Phone: [facility] 05-16-2021 influenza, seasonal, injectable Silvia Pradhan Work Phone: [facility] Work Phone: 05-16-2021 influenza virus vacc ine, unspecified formulation Silvia Pradhan MD Work Phone: [facility] Work Phone: 06-16-2020 Pfizer-BioNTech COVI D-19 Vacc 30 MCG/0.3ML Intramuscular Suspension Silvia Pradhan Work Phone: [facility] 05-26-2020 Pfizer-BioNTech COVI D-19 Vacc 30 MCG/0.3ML Intramuscular Suspension Silvia Pradhan Work Phone: [facility] 02-14-2020 Fluzone High-Dose Quadrivalent 0.7 ML Intramuscular Suspension Prefilled Syringe Silvia Pradhan Work Phone: [facility] 02-14-2020 pneumococcal polysaccharide vaccine, 23 valent Silvia Pradhan Work Phone: [facility] Payers Date Payer Category Payer Medicare [id number] 2019 Unknown 2019 Unknown [employer] YESICA DOWNS O [id number] 2019-Present [phone] [id number] [place] [address] O [id number] 2019 Unknown [id number] 1945 Unknown [id number] 1945 Unknown [id number] 1945 Unknown [id number] 1945 Unknown [id number] 1945 Unknown [id number] 1945 Unknown [id number] Social History Date Type Detail Facility Start: 03-12-2020 End: 08-18-2022 Alcohol Use (History) Alcohol Use (History) [facility] Work Phone: Start: 09-17-2010 End: 11-06-2021 Tobacco smoking status NHIS Never smoked tobacco [facility] Start: 09-17-2010 End: 11-06-2021 Tobacco use and exposure Smokeless tobacco non-user [facility] Start: 03-12-2020 End: 07-13-2023 Alcohol intake Current drinker of alcohol (finding) [facility] Start: 1945 Sex Assigned At Not on file [facility] Start: 08-09-2021 End: 07-11-2023 Exposure to SARS-CoV-2 (event) Not sure [facility] Start: 08-02-2022 End: 08-18-2022 Tobacco use panel [facility] Work Phone: Start: 08-02-2022 Alcohol Comment occassionally [facility] Work Phone: Adult Depression Screening Assessment 0 [facility] NEGATED: Highlighted row - - [facility] Work Phone: Medical Equipment Procedure Code Equipment Code Equipment Origin al Text Equipment Identifier Dates Guy Bn Smpx P Ra dpq Fd Strl - [id number] Start: 03-22-2011 Ins Tib 3 11mm K n X3 Ps Trthln - [id number] Start: 03-22-2011 Comp Fem 3 Rt Kn Ps Guy Trthln - [id number] Start: 03-22-2011 Baseplate Triath lam 3 Tritanium 44mm 67mm Tibial Sterile Latex Free - [id number] Start: 02-13-2020 Insert Triathlon 3 9mm Tibial Bearing Cruciate Retain Sterile Knee - [id number] Start: 02-13-2020 Component Triath bruno 3 Pa Femoral Cruciate Retain Bead Knee Left - [id number] Start: 02-13-2020 Component 32mm Tritanium 10mm Patellar Asymmetric - [id number] Start: 02-13-2020 Comp Pat 10mm 35 mm Asym Trthln - [id number] Start: 03-22-2011 Baseplt Tib Trth ln 3 Prim - [id number] Start: 03-22-2011 Functional Status Date Assessment Result Facility NEGATED: Highlighted row Functional performance Functional status health issues are not documented Disease [facility] Work Phone: Mental Status Date Assessment Result Facility NEGATED: Highlighted row Cognitive function [Interpretation] Cognitive status health issues are not documented Disease [facility] Work Phone: Clinical Notes 03-09-2017 to 07-13-2023 Shobha Patel PA-C - 07/13/2023 11:30 AM Alicia Barnes Tech - 07/13/2023 10:30 AM Isael Pradhan MD - 07/11/2023 1:45 PM Srinivas Williamson PA-C - 04/21/2023 12:56 PM EST Note Date & Type Note Facility 07-13-2023 Note HNO ID: [id number] Author: ALICIA ALANIZ Tech Service: ? Author Type: Transonic Engineer Type: Progress Notes Filed: 07/13/2023 10:45 Note Text: Radiology Service Progress Note PATIENT NAME: Erlinda Lua DATE OF SERVICE: July 13, 2023 TIME: 10:44 AM PATIENT IDENTITY VERIFICATION COMPLETED USING TWO (2) IDENTIFIERS: Name and Date of confirmed by patient verbally. FALL SCREENING: Has the patient had 2 falls in the last year or 1 fall with injury or currently using an Ambulatory Assistive Device (Walker, Cane, Wheelchair, Crutches, etc.)? No PATIENT GENDER DATA: Female. status: : No status: NO. PATIENT RELEVANT IMPLANT DATA REVIEWED: Not Applicable PATIENT PRESENTS WITH AN IMPLANTABLE OR ATTACHED AREA CLEANER: No RADIOLOGY DEPARTMENT: General X-ray: Exam(s) Completed: Pelvis X-Ray: Pelvis with Hip Left and Wt. Bearing Lower Extremity X-Ray(s): Leg Length PERIPHERAL IV DATA: Not applicable SIGNED BY: Neelima Evans July 13, 2023 10:44 AM [facility] 07-13-2023 Note HNO ID: [id number] Author: SHOBHA PATEL PA-C Service: ? Author Type: Physician Book Reviewer Type: Progress Notes Filed: 07/13/2023 11:42 Note Text: HISTORY OF PRESENT ILLNESS: Erlinda is a 78 year old female. She is here for follow up of Left hip pain. Pain has been going on since March 2022. Was being seen by Srinivas Guadarrama PA-C in the neurology department work up of lumbar spine and treatment with gabapentin, PT, and zanaflex has not been effective so far. She reports that hip abduction exercises seem to give her pain. Otherwise takes aleve which dulls the pain. Denies injury or trauma. Reports occasional radiation to the mid calf. 5/10 sharp, intermittent pain that is exacerbated with walking. Last visit with Neuro on 04/21/2023. At this visit lumbar involvement seemed to be less likely and the focus has shifted to possible hip pathology as a source of pain. Activities: walking Restriction: none Progression: Constant Previous treatment: medication (Aleve and Neurontin) and physical therapy (completed in the past) NSAIDS: Aleve and Ibuprofen PT:Musculoskeletal Physical Therapy MEDICATIONS Current Outpatient Medications on File Prior to Visit Medication Sig alendronate (FOSAMAX) 70 mg tablet Take 70 mg by mouth one time a week. In AM with cup of water on empty stomach. Nothing else by mouth and stay upright for 30 min. cephALEXin (KEFLEX) 250 mg capsule Take 250 mg by mouth daily at bedtime. ascorbic acid (VITAMIN C ORAL) Take 1 tablet by mouth once daily. cholecalciferol, vitamin D3, (VITAMIN D3 ORAL) Take 1,000 Units by mouth once daily. Lactobacillus acidophilus (PROBIOTIC ORAL) Take 1 capsule by mouth once daily. cranberry fruit extract (CRANBERRY ORAL) Take 1 tablet by mouth once daily. lutein 20 mg tab Take 1 tablet by mouth once daily. ginkgo biloba (GINKOBA ORAL) Take 120 mg by mouth once daily. diphenhydramine HCl (ANTIHISTAMINE ORAL) Take 10 mg by mouth as needed. multivitamin tablet Take 1 tablet by mouth once daily. sertraline (ZOLOFT) 50 mg tablet Take 50 mg by mouth once daily. SYNTHROID 125 mcg ORAL tablet Take 125 mcg by mouth once daily. METOPROLOL TARTRATE 50 mg ORAL tablet Take 50 mg by mouth once daily. gabapentin (NEURONTIN) 300 mg capsule Take 1 capsule by mouth three times a day for 90 days. metroNIDAZOLE (FLAGYL) 500 mg tablet Take 500 mg by mouth twice daily. FOLIC ACID ORAL Take 1 tablet by mouth once daily. (Patient not taking: Reported on 11/06/2021) No current facility-administered medications on file prior to visit. ALLERGIES ALLERGIES Allergen Reactions Aspirin Shortness of Breath And wheezy Dairy Aid [Lactase] Diarrhea PHYSICAL EXAM: PE: All other systems deferred. GENERAL: Appears healthy, well-nourished, no deformities. HABITUS: Obese GAIT: Normal, the patient did not have trouble getting onto the exam table. SKIN: Normal Left: (more difficult due to body habitus) ROM: Extension: slight flexion contracture Flexion: 100 degrees Internal Rotation: 20 degrees External Rotation: 35 degrees Abduction: 25 degrees Adduction: 20 degrees Strength: Abduction 5/5 and Flexion 5/5 Palpation: Tenderness over left greater trochanter Log roll: painful. Straight leg raise: Positive, reproducing hip symptoms Neurovascular Status: Sensation Intact, Moves foot and ankle up AND down, and 2+ dorsalis pedis RADIOGRAPHS (personally reviewed): left hip osteoarthritis MRI: none DIAGNOSIS Encounter Diagnosis ICD-10-CM 1. Pain in left hip M25.552 XR HIP GENERAL 3V PELV/AP/LAT LEFT 2. Primary osteoarthritis of left hip M16.12 CONSULT TO PHYSICAL THERAPY 3. Trochanteric bursitis of left hip M70.62 CONSULT TO PHYSICAL THERAPY PLAN Patient has left hip pain that can be attributed to OA and trochateric bursitis. Examination was made more difficult due to habitus, however we were able to examine fully. Pinpoint tenderness over left GT bursa and gluteal insertion. Groin pain elicited with rotational stress. We discussed the treatment options for this. We will have her start naprosyn 500mg BID and follow up with targeted therapy at the hip joint and stretching and strengthening of gluteal tendons and muscle. Follow up in 3 months to evaluate progress. May pursue cortisone injection in the future should her symptoms persist. I spent a total of 30 minutes on the date of the service which included preparing to see the patient, [id number] patient care, completing clinical documentation, obtaining and/or reviewing separately obtained history, performing a medically appropriate examination, counseling and educating the patient/family/caregiver, ordering medications, tests, or procedures, independently interpreting results (not separately reported), communicating results to the patient/family/caregiver, and care coordination (not separately reported). PROCEDURE: Procedures Shobha Patel PA-C [facility] 07-13-2023 History of Presen t illness Narrative HISTORY OF PRESENT ILLNESS: Erlinda is a 78 year old female. She is here for follow up of Left hip pain. Pain has been going on since March 2022. Was being seen by Srinivas Guadarrama PA-C in the neurology department work up of lumbar spine and treatment with gabapentin, PT, and zanaflex has not been effective so far. She reports that hip abduction exercises seem to give her pain. Otherwise takes aleve which dulls the pain. Denies injury or trauma. Reports occasional radiation to the mid calf. 5/10 sharp, intermittent pain that is exacerbated with walking. Last visit with Neuro on 04/21/2023. At this visit lumbar involvement seemed to be less likely and the focus has shifted to possible hip pathology as a source of pain. Activities: walking Restriction: none Progression: Constant Previous treatment: medication (Aleve and Neurontin) and physical therapy (completed in the past) NSAIDS: Aleve and Ibuprofen PT:Musculoskeletal Physical Therapy MEDICATIONS Current Outpatient Medications on File Prior to Visit Medication Sig alendronate (FOSAMAX) 70 mg tablet Take 70 mg by mouth one time a week. In AM with cup of water on empty stomach. Nothing else by mouth and stay upright for 30 min. cephALEXin (KEFLEX) 250 mg capsule Take 250 mg by mouth daily at bedtime. ascorbic acid (VITAMIN C ORAL) Take 1 tablet by mouth once daily. cholecalciferol, vitamin D3, (VITAMIN D3 ORAL) Take 1,000 Units by mouth once daily. Lactobacillus acidophilus (PROBIOTIC ORAL) Take 1 capsule by mouth once daily. cranberry fruit extract (CRANBERRY ORAL) Take 1 tablet by mouth once daily. lutein 20 mg tab Take 1 tablet by mouth once daily. ginkgo biloba (GINKOBA ORAL) Take 120 mg by mouth once daily. diphenhydramine HCl (ANTIHISTAMINE ORAL) Take 10 mg by mouth as needed. multivitamin tablet Take 1 tablet by mouth once daily. sertraline (ZOLOFT) 50 mg tablet Take 50 mg by mouth once daily. SYNTHROID 125 mcg ORAL tablet Take 125 mcg by mouth once daily. METOPROLOL TARTRATE 50 mg ORAL tablet Take 50 mg by mouth once daily. gabapentin (NEURONTIN) 300 mg capsule Take 1 capsule by mouth three times a day for 90 days. metroNIDAZOLE (FLAGYL) 500 mg tablet Take 500 mg by mouth twice daily. FOLIC ACID ORAL Take 1 tablet by mouth once daily. (Patient not taking: Reported on 11/06/2021) No current facility-administered medications on file prior to visit. ALLERGIES ALLERGIES Allergen Reactions Aspirin Shortness of Breath And wheezy Dairy Aid [Lactase] Diarrhea PHYSICAL EXAM: PE: All other systems deferred. GENERAL: Appears healthy, well-nourished, no deformities. HABITUS: Obese GAIT: Normal, the patient did not have trouble getting onto the exam table. SKIN: Normal Left: (more difficult due to body habitus) ROM: Extension: slight flexion contracture Flexion: 100 degrees Internal Rotation: 20 degrees External Rotation: 35 degrees Abduction: 25 degrees Adduction: 20 degrees Strength: Abduction 5/5 and Flexion 5/5 Palpation: Tenderness over left greater trochanter Log roll: painful. Straight leg raise: Positive, reproducing hip symptoms Neurovascular Status: Sensation Intact, Moves foot and ankle up & down, and 2+ dorsalis pedis RADIOGRAPHS (personally reviewed): left hip osteoarthritis MRI: none DIAGNOSIS Encounter Diagnosis ICD-10-CM 1. Pain in left hip M25.552 XR HIP GENERAL 3V PELV/AP/LAT LEFT 2. Primary osteoarthritis of left hip M16.12 CONSULT TO PHYSICAL THERAPY 3. Trochanteric bursitis of left hip M70.62 CONSULT TO PHYSICAL THERAPY PLAN Patient has left hip pain that can be attributed to OA and trochateric bursitis. Examination was made more difficult due to habitus, however we were able to examine fully. Pinpoint tenderness over left GT bursa and gluteal insertion. Groin pain elicited with rotational stress. We discussed the treatment options for this. We will have her start naprosyn 500mg BID and follow up with targeted therapy at the hip joint and stretching and strengthening of gluteal tendons and muscle. Follow up in 3 months to evaluate progress. May pursue cortisone injection in the future should her symptoms persist. I spent a total of 30 minutes on the date of the service which included preparing to see the patient, [id number] patient care, completing clinical documentation, obtaining and/or reviewing separately obtained history, performing a medically appropriate examination, counseling and educating the patient/family/caregiver, ordering medications, tests, or procedures, independently interpreting results (not separately reported), communicating results to the patient/family/caregiver, and care coordination (not separately reported). PROCEDURE: Procedures Shobha Patel PA-C documented in this encounter [facility] 07-13-2023 History of Presen t illness Narrative Radiology Service Progress Note PATIENT NAME: Erlinda Lau DATE OF SERVICE: July 13, 2023 TIME: 10:44 AM PATIENT IDENTITY VERIFICATION COMPLETED USING TWO (2) IDENTIFIERS: Name and Date of confirmed by patient verbally. FALL SCREENING: Has the patient had 2 falls in the last year or 1 fall with injury or currently using an Ambulatory Assistive Device (Walker, Cane, Wheelchair, Crutches, etc.)? No PATIENT GENDER DATA: Female. status: : No status: NO. PATIENT RELEVANT IMPLANT DATA REVIEWED: Not Applicable PATIENT PRESENTS WITH AN IMPLANTABLE OR ATTACHED AREA CLEANER: No RADIOLOGY DEPARTMENT: General X-ray: Exam(s) Completed: Pelvis X-Ray: Pelvis with Hip Left and Wt. Bearing Lower Extremity X-Ray(s): Leg Length PERIPHERAL IV DATA: Not applicable SIGNED BY: Neelima Evans July 13, 2023 10:44 AM documented in this encounter [facility] 07-11-2023 History of Presen t illness Narrative Subjective Patient ID: Erlinda Lua is a 78 y.o. female who presents for Medicare Annual Wellness Visit Subsequent (EP. Here for AMCR. Discuss worsening hip pain that affects some daily activities. Has sore throat and drainage.). HPI Feels well, no specific complaints or concerns today. Been having left hip pain - has upcoming appt with ortho doctor Has sore throat and cough, does not feel ill Just did Cologuard and it was positive Mammogram 11/2022 Review of Systems General: no fever or night sweats, no change in weight Eyes: no vision disturbance ENT: no hearing loss, no hoarseness, no mouth lesions, no sore throat, and no dysphagia CV: no chest pain, no palpitations, no lower extremity edema Resp: no shortness of breath, no cough GI: no abdominal pain, no change in bowel habits : no urinary problems MSK: no arthralgias, myalgias, or back pain Skin; no rashes or new/changed skin lesions Neuro: no headache, no difficulty walking Objective BP 128/82 Pulse 63 Temp 36.6 C (97.9 F) (Oral) Ht 1.727 m (5' 8 ) Wt 97.5 kg (215 lb) SpO2 97% BMI 32.69 kg/m Physical Exam Appears well. HEENT: OP clear. Sclera white. PERRL. EACs and TMs clear. Neck: supple, no masses, or lymphadenopathy. No thyromegaly. CVS: RRR. No murmurs. No peripheral edema. Lungs: clear with normal inspirations and expirations. Breasts: Symmetrical, no masses, no skin retraction or dimpling. No nipple discharge. No axillary nodes. Abd: soft, NT, no masses or HSM. Skin: No suspicious lesions. Assessment/Plan Diagnoses and all orders for this visit: Health maintenance examination Acquired hypothyroidism - Synthroid 125 mcg tablet; Take 1 tablet (125 mcg) by mouth once daily. - TSH with reflex to Free T4 if abnormal; Future - Follow Up In [facility] - PCP - Established; Future Primary hypertension - metoprolol tartrate (Lopressor) 50 mg tablet; Take 1 tablet by mouth once daily. - CBC and Auto Differential; Future - Comprehensive Metabolic Panel; Future - Follow Up In [facility] - PCP - Established; Future Major depressive disorder in full remission, unspecified whether recurrent ([facility]) - sertraline (Zoloft) 50 mg tablet; Take 1 tablet (50 mg) by mouth once daily. - Follow Up In [facility] - PCP - Established; Future Osteopenia, unspecified location - alendronate (Fosamax) 70 mg tablet; Take 1 tablet (70 mg) by mouth every 7 days. Mixed hyperlipidemia - Lipid Panel; Future Defers Prevnar 20 Silvia Pradhan MD Family Medicine [facility] documented in this encounter [facility] Work Phone: 06-27-2023 Telephone encounter Note Patient left message on nurse line: I am still having pain in my hip and I want to know if Mr. Guadarrama could order an MRI for me. I'd like to do something about this pain in my hip. Spoke to patient regarding c/o hip pain Location: left hip Intensity: 9/10 Character: sharp and severe if standing or walking, sore if sitting Frequency: daily Duration: constant Aggravating Factors: standing, walking, movement Alleviating Factors: rest Physical therapy: First Appointment on Tuesday Patient advised to complete PT and call us with update or scheduled follow up. Patient states she is going to call her PCP for a consult to orthopedics to evaluate her hip. Routing to provider for review. [facility] 06-27-2023 Miscellaneous Notes Patient left message on nurse line: I am still having pain in my hip and I want to know if Mr. Guadarrama could order an MRI for me. I'd like to do something about this pain in my hip. Spoke to patient regarding c/o hip pain Location: left hip Intensity: 11/07 Character: sharp and severe if standing or walking, sore if sitting Frequency: daily Duration: constant Aggravating Factors: standing, walking, movement Alleviating Factors: rest Physical therapy: First Appointment on Tuesday Patient advised to complete PT and call us with update or scheduled follow up. Patient states she is going to call her PCP for a consult to orthopedics to evaluate her hip. Routing to provider for review. documented in this encounter [facility] 05-12-2023 Miscellaneous Notes Received voicemail 05-12-23 at 9:49 AM. This is Nanda Lua [phone] returning Elena's call. If she could call me back I'd appreciate it. Thank you. Call back to patient. Informed her of message from provider. She verbalizes understanding to complete PT and then schedule a follow up appointment with Cindi Guadarrama PA-C. Call to patient. No answer. Left voicemail to return call. Call to patient. No answer. Left voicemail to return call. Per Srinivas Guadarrama PA-C, patient needs to complete physical therapy and then schedule follow up appointment with him. Images from the original note were not included. Srinivas Guadarrama PA-C You 6 hours ago (11:10 AM) If it's as you say--(she was doing PT for her shoulder or something else), then you probably have your answer to her question already in the chart: Next step is to finish PT for the low back (previously ordered) before we can get further testing, etc. When she's done with her PT, she should make another appointment. It might help clarify things for her. DW BRISEYDA: 04/21/23 with Srinivas Guadarrama PA-C RTC: on an as-needed basis (PRN) Other/Discussion: I would like her to go back to PT and x-rays and we can renew her muscle relaxant for now. She is not overusing the medication at all. She may indeed have separate LEFT hip OA or pain from that region. She may even have labral tear or some other soft tissue problem even if the x-ray does not show severe OA. SI joint testing was not very conclusive toward it being a SI joint disruption, so I will hold off on injecting that for now. Patient called provider due to persistent pain after using Gabapentin as ordered. PT evaluation ordered by provider scheduled in [place] on May 16, 2023. Patient has not completed PT for her low back pain that was ordered by provider because she was completing another PT order first. She would also like to discuss xray results and next steps. Pain Location: lower left side of back, left hip radiating down front of left leg to knee Intensity: while patient is sitting, discomfort is mild to 0/10. Walking, standing, activity causes an increase of pain score to 6/10 Character: described as strong ache Frequency: daily, worse with activity Duration: constant with activity, relieved with rest Aggravating Factors: walking or standing, also increases with activity Alleviating Factors: sitting, rest Using gabapentin TID without improvement in discomfort Routing to provider for review and recommendations. documented in this encounter [facility] 04-26-2023 Miscellaneous Notes Addended by: SRINIVAS GUADARRAMA on: 04/26/2023 09:37 PM Modules accepted: Orders documented in this encounter [facility] 04-21-2023 Note HNO ID: [id number] Author: SRINIVAS GUADARRAMA PA-C Service: ? Author Type: Physician Book Reviewer Type: Progress Notes Filed: 04/21/2023 13:33 Note Text: Srinivas Guadarrama PA-C [facility] [address] [address] Dear Silvia Pradhan MD, MD, Erlinda Lau is a pleasant 77 year old individual who comes in to the office on 04/21/2023 for follow-up regarding the Lumbar spine. Has lower back pain, left hip, left groin area pain(new), and left leg. Has this pain for years and the pain is getting worse. Level of the pain is at 5/10. Has sharp pain from the left groin down to the left leg. Standing up and walking is more painful, about 8/10. A friend accompanies the patient today. Subjective: Compared to the last visit, symptoms have been worse. Ms. Lua still has pain in the same area that she had at her last visit with me on 08/18/2022. At that point, I had ordered PT, x-rays, and tizanidine. She ended up just taking the tizanidine and feeling quite a bit better. She did not do the PT or the x-rays. She has symptoms in the central low back at lumbosacral junction now and she has some symptoms from the left buttock that wraparound to the left anterior groin area and then down the anterior thigh. ROS: Since last visit-patient DENIES fevers, chills, night sweats, unexpected weight loss or gain, abdominal pain, progressive weakness, paralysis, loss of bowel/bladder control, saddle numbness, stumbling gait, loss of coordination. Current Outpatient Medications Medication Sig Dispense Refill alendronate (FOSAMAX) 70 mg tablet Take 70 mg by mouth one time a week. In AM with cup of water on empty stomach. Nothing else by mouth and stay upright for 30 min. cephALEXin (KEFLEX) 250 mg capsule Take 250 mg by mouth daily at bedtime. ascorbic acid (VITAMIN C ORAL) Take 1 tablet by mouth once daily. cholecalciferol, vitamin D3, (VITAMIN D3 ORAL) Take 1,000 Units by mouth once daily. Lactobacillus acidophilus (PROBIOTIC ORAL) Take 1 capsule by mouth once daily. cranberry fruit extract (CRANBERRY ORAL) Take 1 tablet by mouth once daily. lutein 20 mg tab Take 1 tablet by mouth once daily. ginkgo biloba (GINKOBA ORAL) Take 120 mg by mouth once daily. diphenhydramine HCl (ANTIHISTAMINE ORAL) Take 10 mg by mouth as needed. multivitamin tablet Take 1 tablet by mouth once daily. sertraline (ZOLOFT) 50 mg tablet Take 50 mg by mouth once daily. SYNTHROID 125 mcg ORAL tablet Take 125 mcg by mouth once daily. METOPROLOL TARTRATE 50 mg ORAL tablet Take 50 mg by mouth once daily. tiZANidine (ZANAFLEX) 4 mg tablet Take 1 tablet by mouth every 8 hours as needed. (Patient not taking: Reported on 04/21/2023) 30 tablet 0 metroNIDAZOLE (FLAGYL) 500 mg tablet Take 500 mg by mouth twice daily. FOLIC ACID ORAL Take 1 tablet by mouth once daily. (Patient not taking: Reported on 11/06/2021) No current facility-administered medications for this visit. Exam: Blood pressure 136/62, pulse (!) 59, height 172.7 cm (5' 8 ), weight 99 kg (218 lb 4.1 oz), SpO2 98%. Body mass index is 33.19 kg/m?. Station and Gait: favoring the left lower extremity Pain on Palpation: Directly over lumbosacral junction in the midline, LEFT SI region, LEFT GT, and left buttock musculature. We did sacroiliac joint testing throughout today's visit and she did not have any particular sensitivity or positivity to either Ajay, Gaenslen's, lateral compression, or posterior extension tests. She seemed end up with more anterior left groin pain than she had back pain with these maneuvers. Imaging: No new imaging studies were reviewed during this office visit. Assessment/Plan: Encounter Diagnosis ICD-10-CM 1. Left buttock pain M79.18 XR LUMBAR MOTION 4V AP/LAT/ FLEX/EXT CONSULT TO PHYSICAL THERAPY tiZANidine (ZANAFLEX) 4 mg tablet 2. Lumbar radiculopathy M54.16 XR LUMBAR MOTION 4V AP/LAT/ FLEX/EXT CONSULT TO PHYSICAL THERAPY tiZANidine (ZANAFLEX) 4 mg tablet 3. Chronic bilateral low back pain without sciatica M54.50 XR LUMBAR MOTION 4V AP/LAT/ FLEX/EXT G89.29 CONSULT TO PHYSICAL THERAPY tiZANidine (ZANAFLEX) 4 mg tablet RTC: on an as-needed basis (PRN) Other/Discussion: I would like her to go back to PT and x-rays and we can renew her muscle relaxant for now. She is not overusing the medication at all. She may indeed have separate LEFT hip OA or pain from that region. She may even have labral tear or some other soft tissue problem even if the x-ray does not show severe OA. SI joint testing was not very conclusive toward it being a SI joint disruption, so I will hold off on injecting that for now. Time spent: 25 minutes today with this patient visit. This includes [id number]-[id number] time, review of chart records regarding conservative care history, spine-pertinent imaging, and communication/care coordination with referring provider, problem (more content not included)... [facility] 04-21-2023 History of Presen t illness Narrative Images from the original note were not included. Srinivas Guadarrama PA-C [facility] [address] [address] Dear Silvia Pradhan MD, MD, Erlinda Pierson Stoney is a pleasant 77 year old individual who comes in to the office on 04/21/2023 for follow-up regarding the Lumbar spine. Has lower back pain, left hip, left groin area pain(new), and left leg. Has this pain for years and the pain is getting worse. Level of the pain is at 5/10. Has sharp pain from the left groin down to the left leg. Standing up and walking is more painful, about 8/10. A friend accompanies the patient today. Subjective: Compared to the last visit, symptoms have been worse. Ms. Lua still has pain in the same area that she had at her last visit with me on 08/18/2022. At that point, I had ordered PT, x-rays, and tizanidine. She ended up just taking the tizanidine and feeling quite a bit better. She did not do the PT or the x-rays. She has symptoms in the central low back at lumbosacral junction now and she has some symptoms from the left buttock that wraparound to the left anterior groin area and then down the anterior thigh. ROS: Since last visit-patient DENIES fevers, chills, night sweats, unexpected weight loss or gain, abdominal pain, progressive weakness, paralysis, loss of bowel/bladder control, saddle numbness, stumbling gait, loss of coordination. Current Outpatient Medications Medication Sig Dispense Refill alendronate (FOSAMAX) 70 mg tablet Take 70 mg by mouth one time a week. In AM with cup of water on empty stomach. Nothing else by mouth and stay upright for 30 min. cephALEXin (KEFLEX) 250 mg capsule Take 250 mg by mouth daily at bedtime. ascorbic acid (VITAMIN C ORAL) Take 1 tablet by mouth once daily. cholecalciferol, vitamin D3, (VITAMIN D3 ORAL) Take 1,000 Units by mouth once daily. Lactobacillus acidophilus (PROBIOTIC ORAL) Take 1 capsule by mouth once daily. cranberry fruit extract (CRANBERRY ORAL) Take 1 tablet by mouth once daily. lutein 20 mg tab Take 1 tablet by mouth once daily. ginkgo biloba (GINKOBA ORAL) Take 120 mg by mouth once daily. diphenhydramine HCl (ANTIHISTAMINE ORAL) Take 10 mg by mouth as needed. multivitamin tablet Take 1 tablet by mouth once daily. sertraline (ZOLOFT) 50 mg tablet Take 50 mg by mouth once daily. SYNTHROID 125 mcg ORAL tablet Take 125 mcg by mouth once daily. METOPROLOL TARTRATE 50 mg ORAL tablet Take 50 mg by mouth once daily. tiZANidine (ZANAFLEX) 4 mg tablet Take 1 tablet by mouth every 8 hours as needed. (Patient not taking: Reported on 04/21/2023) 30 tablet 0 metroNIDAZOLE (FLAGYL) 500 mg tablet Take 500 mg by mouth twice daily. FOLIC ACID ORAL Take 1 tablet by mouth once daily. (Patient not taking: Reported on 11/06/2021) No current facility-administered medications for this visit. Exam: Blood pressure 136/62, pulse (!) 59, height 172.7 cm (5' 8 ), weight 99 kg (218 lb 4.1 oz), SpO2 98%. Body mass index is 33.19 kg/m . Station and Gait: favoring the left lower extremity Pain on Palpation: Directly over lumbosacral junction in the midline, LEFT SI region, LEFT GT, and left buttock musculature. We did sacroiliac joint testing throughout today's visit and she did not have any particular sensitivity or positivity to either Ajay, Gaenslen's, lateral compression, or posterior extension tests. She seemed end up with more anterior left groin pain than she had back pain with these maneuvers. Imaging: No new imaging studies were reviewed during this office visit. Assessment/Plan: Encounter Diagnosis ICD-10-CM 1. Left buttock pain M79.18 XR LUMBAR MOTION 4V AP/LAT/ FLEX/EXT CONSULT TO PHYSICAL THERAPY tiZANidine (ZANAFLEX) 4 mg tablet 2. Lumbar radiculopathy M54.16 XR LUMBAR MOTION 4V AP/LAT/ FLEX/EXT CONSULT TO PHYSICAL THERAPY tiZANidine (ZANAFLEX) 4 mg tablet 3. Chronic bilateral low back pain without sciatica M54.50 XR LUMBAR MOTION 4V AP/LAT/ FLEX/EXT G89.29 CONSULT TO PHYSICAL THERAPY tiZANidine (ZANAFLEX) 4 mg tablet RTC: on an as-needed basis (PRN) Other/Discussion: I would like her to go back to PT and x-rays and we can renew her muscle relaxant for now. She is not overusing the medication at all. She may indeed have separate LEFT hip OA or pain from that region. She may even have labral tear or some other soft tissue problem even if the x-ray does not show severe OA. SI joint testing was not very conclusive toward it being a SI joint disruption, so I will hold off on injecting that for now. Time spent: 25 minutes today with this patient visit. This includes wzac-[id number] time, review of chart records regarding conservative care history, spine-pertinent imaging, and communication/care coordination with referring provider, problem-specific history-taking and counseling/education regarding treatment options. This document has been created with the use of voice recognition technology. It may contain inaccuracies: (e.g. misspellings, inaccurate syntax or word sense) that have escaped review. Crissy Jurado MA documented in this encounter [facility] 02-01-2023 History of Presen t illness Narrative Subjective Patient ID: Erlinda Lua is a 77 y.o. female who presents for Follow-up (EP. Her for 6 month follow up and medication.). HPI Feels well, no specific complaints or concerns today. Review of Systems Genl: The patient has been in good health without recent weight change, fevers, or night sweats CVS: No chest pain, irregular heartbeat, shortness of breath, or swollen ankles Resp: No cough or difficulty breathing GI: No change in bowel habits or abdominal pain. Objective Visit Vitals BP 128/82 Temp 36.4 C (97.6 F) (Oral) Physical Exam Alert, well-appearing. Neck: Supple. No palpable masses. Thyroid was not enlarged. CVS: RRR, no murmurs. No peripheral edema. Respiratory: Normal inspirations and expirations. Clear and equal breath sounds. GI: Soft, nontender, no masses or hepatosplenomegaly. Assessment/Plan Diagnoses and all orders for this visit: Primary hypertension - metoprolol tartrate (Lopressor) 50 mg tablet; Take 1 tablet by mouth once daily. Acquired hypothyroidism - Synthroid 125 mcg tablet; Take 1 tablet (125 mcg) by mouth once daily. Recurrent major depressive disorder, in full remission (CMS/HCC) - sertraline (Zoloft) 50 mg tablet; Take 1 tablet (50 mg) by mouth once daily. Major depressive disorder in full remission, unspecified whether recurrent (CMS/HCC) - sertraline (Zoloft) 50 mg tablet; Take 1 tablet (50 mg) by mouth once daily. Osteopenia, unspecified location - alendronate (Fosamax) 70 mg tablet; Take 1 tablet (70 mg) by mouth every 7 days. Pt defers statin medication for now, wants to work on diet Silvia Pradhan MD Family Medicine [facility] documented in this encounter [facility] Work Phone: 12-24-2022 Miscellaneous Notes [facility] [address] [place] [address] December 24, 2022 PID: [id number] Erlinda Lua [address], [place] [phone] Dear Ms. Lua, We are pleased to inform you that the results of your recent breast imaging exam on 12/23/2022 are normal. Early detection of cancer is very important. We also understand recommendations regarding breast cancer screening are controversial. Please discuss with your primary care provider which strategy is best for you and whether a mammogram is right for you. Your imaging studies and report will be kept on file at [facility] as part of your permanent medical record and are available for your continuing care. Thank you for allowing us to help in meeting your health care needs. Sincerely, Dr. Samuel Interpreting Radiologist [facility] (Normal over 40) documented in this encounter [facility] 12-23-2022 Note HNO ID: [id number] Author: Berta Cross RT(Macie) Service: Radiology Author Type: Technologist Type: Progress Notes Filed: 12/23/2022 11:08 AM Note Text: Radiology Service Progress Note PATIENT NAME: Erlinda Lua DATE OF SERVICE: December 23, 2022 TIME: 11:08 AM PATIENT IDENTITY VERIFICATION COMPLETED USING TWO (2) IDENTIFIERS: Name and Date of confirmed by patient verbally. FALL SCREENING: Has the patient had 2 falls in the last year or 1 fall with injury or currently using an Ambulatory Assistive Device (Walker, Cane, Wheelchair, Crutches, etc.)? No PATIENT GENDER DATA: Female. status: : No status: N/A PATIENT RELEVANT IMPLANT DATA REVIEWED: Not Applicable RADIOLOGY DEPARTMENT: Mammography PERIPHERAL IV DATA: Not applicable SIGNED BY: RT Jazmyn(R) December 23, 2022 11:08 AM [facility] 12-23-2022 History of Presen t illness Narrative Radiology Service Progress Note PATIENT NAME: Erlinda Lua DATE OF SERVICE: December 23, 2022 TIME: 11:08 AM PATIENT IDENTITY VERIFICATION COMPLETED USING TWO (2) IDENTIFIERS: Name and Date of confirmed by patient verbally. FALL SCREENING: Has the patient had 2 falls in the last year or 1 fall with injury or currently using an Ambulatory Assistive Device (Walker, Cane, Wheelchair, Crutches, etc.)? No PATIENT GENDER DATA: Female. status: : No status: N/A PATIENT RELEVANT IMPLANT DATA REVIEWED: Not Applicable RADIOLOGY DEPARTMENT: Mammography PERIPHERAL IV DATA: Not applicable SIGNED BY: RT Jazmyn(Macie) December 23, 2022 11:08 AM documented in this encounter [facility] 11-26-2022 Note HNO ID: [id number] Author: Kanika Aleman MD Service: ? Author Type: Physician Type: Progress Notes Filed: 11/26/2022 2:42 PM Note Text: ORTHOPAEDIC SHOULDER AND ELBOW SERVICE HISTORY AND PHYSICAL EXAM REFERRING PROVIDER: SELF CHIEF COMPLAINT: Left shoulder pain PAIN EVALUATION 11/26/2022 1417 Pain Level: 6 Pain Location: Shoulder-Left Description: Aching;Shooting;Radiating radiates to mid humerus area Frequency: Continuous Erlinda Lua is a 77 year old woman who presents today for evaluation of her left shoulder. She has had pain and limited ability to lift the arm with any strength over the past several months without any injury she can recall. 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 She has pain with rolling over at night to sleep. Treatments and therapies to-date include: Activity modification/changes to daily activities: This Medical management (Tylenol, NSAIDs): Yes Physical therapy within the past 6 months for at least 4 weeks: No Corticosteroid Injection: No PAST MEDICAL HISTORY: PAST MEDICAL HISTORY Diagnosis Date Bradycardia 03/17/2017 Depression High blood pressure Thyroid disease PAST SURGICAL HISTORY: PAST SURGICAL HISTORY Procedure Laterality Date ARTHRP KNE CONDYLEANDPLATU MEDIALANDLAT COMPARTMENTS Right 03/22/2011 ORAL SURGERY PROCEDURE dental implant REPAIR UMBILICAL HERNIA 03/28/2017 and Repair RLQ Abdominal Wall Defect, TONSILLECTOMY AND ADENOIDECTOMY TOTAL KNEE REPLACEMENT Left 02/13/2020 SOCIAL HISTORY: Social History Tobacco Use Smoking status: Never Smokeless tobacco: Never Vaping Use Vaping Use: Never used Substance Use Topics Alcohol use: Yes Alcohol/week: 1.0 standard drink of alcohol Types: 1 Glasses of Wine (5oz) per week Drug use: No ALLERGIES: ALLERGIES Allergen Reactions Aspirin Shortness of Breath And wheezy Dairy Aid [Lactase] Diarrhea MEDICATIONS: Current Outpatient Medications on File Prior to Visit Medication Sig alendronate (FOSAMAX) 70 mg tablet Take 70 mg by mouth one time a week. In AM with cup of water on empty stomach. Nothing else by mouth and stay upright for 30 min. cephALEXin (KEFLEX) 250 mg capsule Take 250 mg by mouth daily at bedtime. tiZANidine (ZANAFLEX) 4 mg tablet Take 1 tablet by mouth every 8 hours as needed. ascorbic acid (VITAMIN C ORAL) Take 1 tablet by mouth once daily. cholecalciferol, vitamin D3, (VITAMIN D3 ORAL) Take 1,000 Units by mouth once daily. Lactobacillus acidophilus (PROBIOTIC ORAL) Take 1 capsule by mouth once daily. cranberry fruit extract (CRANBERRY ORAL) Take 1 tablet by mouth once daily. lutein 20 mg tab Take 1 tablet by mouth once daily. ginkgo biloba (GINKOBA ORAL) Take 120 mg by mouth once daily. diphenhydramine HCl (ANTIHISTAMINE ORAL) Take 10 mg by mouth as needed. multivitamin tablet Take 1 tablet by mouth once daily. sertraline (ZOLOFT) 50 mg tablet Take 50 mg by mouth once daily. SYNTHROID 125 mcg ORAL tablet Take 125 mcg by mouth once daily. METOPROLOL TARTRATE 50 mg ORAL tablet Take 50 mg by mouth once daily. metroNIDAZOLE (FLAGYL) 500 mg tablet Take 500 mg by mouth twice daily. FOLIC ACID ORAL Take 1 tablet by mouth once daily. (Patient not taking: Reported on 11/06/2021) No current facility-administered medications on file prior to visit. PHYSICAL EXAMINATION: There were no vitals taken for this visit. EXAM: Shoulder Musculoskeletal Exam Inspection Left Ecchymosis: none Peripheral edema: none Atrophy: none Symmetry: symmetric Masses: none Skin tenting: none Prior incision: none Palpation Left Crepitus: no crepitus Increased warmth: none Tenderness: present Anterior shoulder: moderate Posterior shoulder: mild Clavicle: none AC joint: mild Sternoclavicular joint: none Rotator cuff: moderate Greater tuberosity: mild Trapezius: mild Medial scapula: none Superior pole of scapula: none Inferior pole of scapula: none Bicipital groove: mild Proximal biceps: moderate Range of Motion Left Active ROM: abnormal and pain. Passive ROM: abnormal and pain. Active forward elevation: 90. Passive forward elevation: 120. Shoulder active abduction: 90. Passive abduction: 90. Active external rotation at side: 60. Passive external rotation at side: 60. Active external rotation in abduction: 80. Passive external rotation in abduction: 80. Active internal rotation in abduction: 60. Passive internal rotation in abduction: 60. Internal rotation: T12. Strength Left External rotation: 4+/5. Internal rotation: 4+/5. Abduction: 4+/5. Neurovascular Left Left shoulder nerve sensation is normal. Scapula Left Left shoulder scapula is normal. Special Tests Left Rotator Cuff Signs Neer's test: positive Bangura test: positive External rotation lag sign: negative S (more content not included)... [facility] [facility] History of Presen t illness Narrative Associated Order(s): Large Joint Arthro/Inj: L shoulder joint Post-Procedure Diagnose(s): Left shoulder pain, unspecified chronicity Images from the original note were not included. ORTHOPAEDIC SHOULDER & ELBOW SERVICE HISTORY & PHYSICAL EXAM REFERRING PROVIDER: SELF CHIEF COMPLAINT: Left shoulder pain PAIN EVALUATION 11/26/2022 1417 Pain Level: 6 Pain Location: Shoulder-Left Description: Aching;Shooting;Radiating radiates to mid humerus area Frequency: Continuous Erlinda Lua is a 77 year old woman who presents today for evaluation of her left shoulder. She has had pain and limited ability to lift the arm with any strength over the past several months without any injury she can recall. 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 She has pain with rolling over at night to sleep. Treatments and therapies to-date include: Activity modification/changes to daily activities: This Medical management (Tylenol, NSAIDs): Yes Physical therapy within the past 6 months for at least 4 weeks: No Corticosteroid Injection: No PAST MEDICAL HISTORY: PAST MEDICAL HISTORY Diagnosis Date Bradycardia 03/17/2017 Depression High blood pressure Thyroid disease PAST SURGICAL HISTORY: PAST SURGICAL HISTORY Procedure Laterality Date ARTHRP KNE CONDYLE&PLATU MEDIAL&LAT COMPARTMENTS Right 03/22/2011 ORAL SURGERY PROCEDURE dental implant REPAIR UMBILICAL HERNIA 03/28/2017 and Repair RLQ Abdominal Wall Defect, TONSILLECTOMY & ADENOIDECTOMY <AGE 12 TOTAL KNEE REPLACEMENT Left 02/13/2020 SOCIAL HISTORY: Social History Tobacco Use Smoking status: Never Smokeless tobacco: Never Vaping Use Vaping Use: Never used Substance Use Topics Alcohol use: Yes Alcohol/week: 1.0 standard drink of alcohol Types: 1 Glasses of Wine (5oz) per week Drug use: No ALLERGIES: ALLERGIES Allergen Reactions Aspirin Shortness of Breath And wheezy Dairy Aid [Lactase] Diarrhea MEDICATIONS: Current Outpatient Medications on File Prior to Visit Medication Sig alendronate (FOSAMAX) 70 mg tablet Take 70 mg by mouth one time a week. In AM with cup of water on empty stomach. Nothing else by mouth and stay upright for 30 min. cephALEXin (KEFLEX) 250 mg capsule Take 250 mg by mouth daily at bedtime. tiZANidine (ZANAFLEX) 4 mg tablet Take 1 tablet by mouth every 8 hours as needed. ascorbic acid (VITAMIN C ORAL) Take 1 tablet by mouth once daily. cholecalciferol, vitamin D3, (VITAMIN D3 ORAL) Take 1,000 Units by mouth once daily. Lactobacillus acidophilus (PROBIOTIC ORAL) Take 1 capsule by mouth once daily. cranberry fruit extract (CRANBERRY ORAL) Take 1 tablet by mouth once daily. lutein 20 mg tab Take 1 tablet by mouth once daily. ginkgo biloba (GINKOBA ORAL) Take 120 mg by mouth once daily. diphenhydramine HCl (ANTIHISTAMINE ORAL) Take 10 mg by mouth as needed. multivitamin tablet Take 1 tablet by mouth once daily. sertraline (ZOLOFT) 50 mg tablet Take 50 mg by mouth once daily. SYNTHROID 125 mcg ORAL tablet Take 125 mcg by mouth once daily. METOPROLOL TARTRATE 50 mg ORAL tablet Take 50 mg by mouth once daily. metroNIDAZOLE (FLAGYL) 500 mg tablet Take 500 mg by mouth twice daily. FOLIC ACID ORAL Take 1 tablet by mouth once daily. (Patient not taking: Reported on 11/06/2021) No current facility-administered medications on file prior to visit. PHYSICAL EXAMINATION: There were no vitals taken for this visit. EXAM: Shoulder Musculoskeletal Exam Inspection Left Ecchymosis: none Peripheral edema: none Atrophy: none Symmetry: symmetric Masses: none Skin tenting: none Prior incision: none Palpation Left Crepitus: no crepitus Increased warmth: none Tenderness: present Anterior shoulder: moderate Posterior shoulder: mild Clavicle: none AC joint: mild Sternoclavicular joint: none Rotator cuff: moderate Greater tuberosity: mild Trapezius: mild Medial scapula: none Superior pole of scapula: none Inferior pole of scapula: none Bicipital groove: mild Proximal biceps: moderate Range of Motion Left Active ROM: abnormal and pain. Passive ROM: abnormal and pain. Active forward elevation: 90. Passive forward elevation: 120. Shoulder active abduction: 90. Passive abduction: 90. Active external rotation at side: 60. Passive external rotation at side: 60. Active external rotation in abduction: 80. Passive external rotation in abduction: 80. Active internal rotation in abduction: 60. Passive internal rotation in abduction: 60. Internal rotation: T12. Strength Left External rotation: 4+/5. Internal rotation: 4+/5. Abduction: 4+/5. Neurovascular Left Left shoulder nerve sensation is normal. Scapula Left Left shoulder scapula is normal. Special Tests Left Rotator Cuff Signs Neer's test: positive Bangura test: positive External rotation lag sign: negative Supraspinatus: positive Belly press test: negative Painful arc test: positive Lift-off sign: negative Biceps/issac Signs Pocahontas's test: positive Clicking/popping: negative Speed's test: positive AC Joint Signs Active horizontal adduction pain: negative Single finger test: negative General Constitutional: appears stated age Labored breathing: no Psychiatric: normal mood and affect and no acute distress Neurological: alert and oriented x3 Skin: intact Lymphadenopathy: none IMAGING: Reviewed radiographs of her left shoulder taken today showing normal appearance of the glenohumeral joint without significant degenerative changes. MEDICAL DECISION MAKING: (M25.512) Left shoulder pain, unspecified chronicity (primary encounter diagnosis) Comment: This is a 77-year-old woman with pain in the left shoulder with limited ability to elevate and rotate the arm consistent with likely chronic rotator cuff tearing. Recommended conservative treatment with a physical therapy program which was ordered today. Corticosteroid injection was offered for relief of pain as well. She will return to see me on an as-needed basis if symptoms fail to improve or if they worsen. A comprehensive physical therapy program was ordered today after discussion of conservative treatment. Physical therapy would be expected to provide benefit within approximately 6 to 12 weeks of starting the program. This will likely involve both in person visits as well as a structured home program. The importance of adherence to the physical therapy program for the best possible outcome was discussed today. Large Joint Arthro/Inj: L shoulder joint 11/26/2022 2:41 PM The procedure site was prepped in the usual sterile fashion. Site: L shoulder joint Medications: 80 mg triamcinolone acetonide 40 mg/mL Anesthetics: 4 mL bupivacaine (PF) 0.25 % (2.5 mg/mL) Outcome: Tolerated well, no immediate complications Post-injection instructions were reviewed with the patient and the patient voiced understanding of these instructions. Medical decision making for today's visit was conducted with review of the following data sources: History, exam, imaging REFERRING PHYSICIAN: The patient was referred to me for consultation by the following physician. This consultation note will be sent to the following physician by either mail or electronic medical record. SELF -- Kanika Aleman MD Shoulder & Elbow Surgeon Department of Orthopaedic Surgery [facility] -- documented in this encounter [facility] 11-25-2022 Note HNO ID: [id number] Author: Elvia Soria RT(Macie) Service: ? Author Type: Technologist Type: Progress Notes Filed: 11/25/2022 1:27 PM Note Text: Radiology Service Progress Note PATIENT NAME: Erlinda Lua DATE OF SERVICE: November 25, 2022 TIME: 1:27 PM PATIENT IDENTITY VERIFICATION COMPLETED USING TWO (2) IDENTIFIERS: Name and Date of confirmed by patient verbally. FALL SCREENING: Has the patient had 2 falls in the last year or 1 fall with injury or currently using an Ambulatory Assistive Device (Walker, Cane, Wheelchair, Crutches, etc.)? No PATIENT GENDER DATA: Female. status: : No status: NO. PATIENT RELEVANT IMPLANT DATA REVIEWED: Not Applicable RADIOLOGY DEPARTMENT: General X-ray: Exam(s) Completed: Upper Extremity X-Ray(s): Shoulder, AP / TRUE AP / AXILLARY / SUPRA OUTLET left PERIPHERAL IV DATA: Not applicable SIGNED BY: RT Cat(R) November 25, 2022 1:27 PM [facility] 11-25-2022 History of Presen t illness Narrative Radiology Service Progress Note PATIENT NAME: Erlinda Lua DATE OF SERVICE: November 25, 2022 TIME: 1:27 PM PATIENT IDENTITY VERIFICATION COMPLETED USING TWO (2) IDENTIFIERS: Name and Date of confirmed by patient verbally. FALL SCREENING: Has the patient had 2 falls in the last year or 1 fall with injury or currently using an Ambulatory Assistive Device (Walker, Cane, Wheelchair, Crutches, etc.)? No PATIENT GENDER DATA: Female. status: : No status: NO. PATIENT RELEVANT IMPLANT DATA REVIEWED: Not Applicable RADIOLOGY DEPARTMENT: General X-ray: Exam(s) Completed: Upper Extremity X-Ray(s): Shoulder, AP / TRUE AP / AXILLARY / SUPRA OUTLET left PERIPHERAL IV DATA: Not applicable SIGNED BY: RT Cat(Macie) November 25, 2022 1:27 PM documented in this encounter [facility] 08-02-2022 History of Presen t illness Narrative Subjective Reason for Visit: Erlinda Lua is an 77 y.o. female here for a Medicare Wellness visit. Past Medical, Surgical, and Family History reviewed and updated in chart. HPI Feels well, no specific complaints or concerns today. Bmd 11/2019- osteopenia Patient Care Team: Silvia Pradhan MD as PCP - General Silvia Pradhan MD as PCP - [employer] Advantage PCP Review of Systems General: no fever or night sweats, no change in weight Eyes: no vision disturbance ENT: + hearing loss, no hoarseness, no mouth lesions, no sore throat, and no dysphagia CV: no chest pain, no palpitations, no lower extremity edema Resp: no shortness of breath, no cough GI: no abdominal pain, no change in bowel habits : no urinary problems MSK: no arthralgias, myalgias, or back pain Skin; no rashes or new/changed skin lesions Neuro: no headache, no difficulty walking Objective Vitals: BP 132/82 Pulse 55 Temp 36.8 C (98.2 F) (Oral) Ht 1.727 m (5' 8 ) Wt 96 kg (211 lb 9.6 oz) SpO2 98% BMI 32.17 kg/m Physical Exam Appears well. HEENT: OP clear. Sclera white. PERRL. EACs and TMs clear. Neck: supple, no masses, or lymphadenopathy. No thyromegaly. CVS: RRR. No murmurs. No peripheral edema. Lungs: clear with normal inspirations and expirations. Breasts: Symmetrical, no masses, no skin retraction or dimpling. No nipple discharge. No axillary nodes. Abd: soft, NT, no masses or HSM. Skin: No suspicious lesions. Assessment/Plan Problem List Items Addressed This Visit Circulatory Hypertension Relevant Medications metoprolol tartrate (Lopressor) 50 mg tablet Musculoskeletal Osteopenia Relevant Medications alendronate (Fosamax) 70 mg tablet Endocrine/Metabolic Hypothyroidism Relevant Medications levothyroxine (Synthroid) 125 mcg tablet Other Depression Relevant Medications sertraline (Zoloft) 50 mg tablet Other Visit Diagnoses Routine general medical examination at health care facility - Primary Breast cancer screening other than mammogram Relevant Orders BI mammo bilateral screening tomosynthesis Encounter for screening mammogram for malignant neoplasm of breast Relevant Orders BI mammo bilateral screening tomosynthesis Encounter for colorectal cancer screening Relevant Orders Cologuard colon cancer screening Encouraged her to go to counter installer for hearing test/screen documented in this encounter [facility] Work Phone: 11-06-2021 History of Presen t illness Narrative HPI Erlinda Lua is a 76 year old female who presents with hearing loss. Patient has noted more more hearing loss. Patient is having medically Acacian issues. ROS General Weight loss: No Fatigue: No Night sweats:No Cardiac Chest pain:No Fast heart rate:No Swelling in the feet:No Respiratory Short of breath:No Cough:No Wheezing:No Gastrointestinal Nausea:No Vomiting:No Indigestion:No Past medical history, family history, and social history reviewed. PE There were no vitals taken for this visit. General: Patient is awake, alert, NAD. Voice is normal. Skin: normal Eyes: Extraocular motion and Gaze is normal. Ears: Right external auditory canal is normal. TMJ: normal. Right tympanic membranes normal. Left external auditory canal is normal. Left tympanic membrane normal. Nose: Septum is normal. Turbinates are normal. Nasopharynx:normal Oral Cavity/Oropharynx: Lips normal Dentition normal Tongue normal. Tonsils normal. Palate and uvula normal. Pharynx posterior normal Hypopharynx: Base of tongue normal Pyriform sinus normal. Larynx: Vocal cords normal. Epiglottis normal. Post cricoid normal. Salivary glands: Parotid normal. Submandibular and sublingual normal. Thyroid: normal. Lymphatic/Neck: Lymph nodes normal. Neurologic: Facial nerve normal. ASSESSMENT/PLAN: 1. Hearing loss, unspecified hearing loss type, unspecified laterality - ICD9: 389.9, ICD10: H91.90 (primary diagnosis) - HEARING TEST/AUDIOGRAM 2. Eustachian tube disorder, bilateral - ICD9: 381.9, ICD10: H69.93 Recommend hearing test most likely will benefit from a hearing aid Magdiel Teran MD Findings will be communicated to the referring physician via mail or electronic medical record. documented in this encounter [facility] 08-19-2021 Miscellaneous Notes [address] [address] August 19, 2021 PID: [id number] Erlinda Lua [address] [place], [place] [id number] Dear Ms. Lua, We are pleased to inform you that the results of your recent breast imaging exam on 08/19/2021 are normal. Early detection of cancer is very important. We also understand recommendations regarding breast cancer screening are controversial. Please discuss with your primary care provider which strategy is best for you and whether a mammogram is right for you. Your imaging studies and report will be kept on file at [facility] as part of your permanent medical record and are available for your continuing care. Thank you for allowing us to help in meeting your health care needs. Sincerely, Dr. Martinez Interpreting Radiologist [facility] (Normal over 40) documented in this encounter [facility] 08-19-2021 History of Presen t illness Narrative Radiology Service Progress Note PATIENT NAME: Erlinda Lua DATE OF SERVICE: August 19, 2021 TIME: 11:17 AM PATIENT IDENTITY VERIFICATION COMPLETED USING TWO (2) IDENTIFIERS: Name and Date of confirmed by patient verbally. FALL SCREENING: Has the patient had 2 falls in the last year or 1 fall with injury or currently using an Ambulatory Assistive Device (Walker, Cane, Wheelchair, Crutches, etc.)? No PATIENT GENDER DATA: Female. status: : No status: N/A PATIENT RELEVANT IMPLANT DATA REVIEWED: Not Applicable RADIOLOGY DEPARTMENT: Mammography PERIPHERAL IV DATA: Not applicable SIGNED BY: RT Jazmyn(Macie) August 19, 2021 11:17 AM documented in this encounter [facility] 03-09-2017 History of Past i llness Narrative Problem Noted Date Resolved Date Umbilical hernia 03/09/2017 02/01/2020 Overview: Added automatically from request for surgery [id number] Right sided abdominal pain 03/09/201701/31 Overview: Added automatically from request for surgery [id number] Pain in left knee 09/10/2014 02/01/2020 Right knee pain 01/28/2010 03/15/2017 documented as of this encounter (statuses as of 08/20/2021) [facility] History of Past illness Narrative* Problem Noted Date Resolved Date Umbilical hernia 03/09/2017 02/01/2020 Overview: Added automatically from request for surgery [id number] Right sided abdominal pain 03/09/201701/31 Overview: Added automatically from request for surgery [id number] Pain in left knee 09/10/2014 02/01/2020 Right knee pain 01/28/2010 03/15/2017 documented as of this encounter (statuses as of 08/21/2021) [facility] History of Past illness Narrative* Problem Noted Date Resolved Date Umbilical hernia 03/09/2017 02/01/2020 Overview: Added automatically from request for surgery [id number] Right sided abdominal pain 03/09/201701/31 Overview: Added automatically from request for surgery [id number] Pain in left knee 09/10/2014 02/01/2020 Right knee pain 01/28/2010 03/15/2017 documented as of this encounter (statuses as of 11/06/2021) [facility] History of Past illness Narrative* Problem Noted Date Diagnosed Date Resolved Date Umbilical hernia 03/09/2017 02/01/2020 Overview: Added automatically from request for surgery [id number] Right sided abdominal pain 03/09/2017 1 04/03/2019 Overview: Added automatically from request for surgery [id number] Pain in left knee 09/10/2014 02/01/2020 Right knee pain 01/28/2010 03/15/2017 documented as of this encounter (statuses as of 10/25/2022) [facility] History of Past illness Narrative* Problem Noted Date Diagnosed Date Resolved Date Umbilical hernia 03/09/2017 02/01/2020 Overview: Added automatically from request for surgery [id number] Right sided abdominal pain 03/09/2017 1 04/03/2019 Overview: Added automatically from request for surgery [id number] Pain in left knee 09/10/2014 02/01/2020 Right knee pain 01/28/2010 03/15/2017 documented as of this encounter (statuses as of 11/16/2022) [address] History of Past illness Narrative* Problem Noted Date Diagnosed Date Resolved Date Umbilical hernia 03/09/2017 02/01/2020 Overview: Added automatically from request for surgery [id number] Right sided abdominal pain 03/09/2017 1 04/03/2019 Overview: Added automatically from request for surgery [id number] Pain in left knee 09/10/2014 02/01/2020 Right knee pain 01/28/2010 03/15/2017 documented as of this encounter (statuses as of 11/26/2022) [facility] History of Past illness Narrative* Problem Noted Date Diagnosed Date Resolved Date Umbilical hernia 03/09/2017 02/01/2020 Overview: Added automatically from request for surgery [id number] Right sided abdominal pain 03/09/2017 1 04/03/2019 Overview: Added automatically from request for surgery [id number] Pain in left knee 09/10/2014 02/01/2020 Right knee pain 01/28/2010 03/15/2017 documented as of this encounter (statuses as of 11/27/2022) [facility] History of Past illness Narrative* Problem Noted Date Diagnosed Date Resolved Date Umbilical hernia 03/09/2017 02/01/2020 Overview: Added automatically from request for surgery [id number] Right sided abdominal pain 03/09/2017 1 04/03/2019 Overview: Added automatically from request for surgery [id number] Pain in left knee 09/10/2014 02/01/2020 Right knee pain 01/28/2010 03/15/2017 documented as of this encounter (statuses as of 12/24/2022) [facility] History of Past illness Narrative* Problem Noted Date Diagnosed Date Resolved Date Umbilical hernia 03/09/2017 02/01/2020 Overview: Added automatically from request for surgery [id number] Right sided abdominal pain 03/09/2017 1 04/03/2019 Overview: Added automatically from request for surgery [id number] Pain in left knee 09/10/2014 02/01/2020 Right knee pain 01/28/2010 03/15/2017 documented as of this encounter (statuses as of 12/28/2022) [address] History of Past illness Narrative* Problem Noted Date Diagnosed Date Resolved Date Umbilical hernia 03/09/2017 02/01/2020 Overview: Added automatically from request for surgery [id number] Right sided abdominal pain 03/09/2017 1 04/03/2019 Overview: Added automatically from request for surgery [id number] Pain in left knee 09/10/2014 02/01/2020 Right knee pain 01/28/2010 03/15/2017 documented as of this encounter (statuses as of 04/21/2023) [address]2018 History of Past illness Narrative* Problem Noted Date Diagnosed Date Resolved Date Umbilical hernia 03/09/2017 02/01/2020 Overview: Added automatically from request for surgery [id number] Right sided abdominal pain 03/09/2017 1 04/03/2019 Overview: Added automatically from request for surgery [id number] Pain in left knee 09/10/2014 02/01/2020 Right knee pain 01/28/2010 03/15/2017 documented as of this encounter (statuses as of 04/27/2023) [address]2018 History of Past illness Narrative* Problem Noted Date Diagnosed Date Resolved Date Umbilical hernia 03/09/2017 02/01/2020 Overview: Added automatically from request for surgery [id number] Right sided abdominal pain 03/09/2017 1 04/03/2019 Overview: Added automatically from request for surgery [id number] Pain in left knee 09/10/2014 02/01/2020 Right knee pain 01/28/2010 03/15/2017 documented as of this encounter (statuses as of 04/28/2023) [facility] History of Past illness Narrative* Problem Noted Date Diagnosed Date Resolved Date Umbilical hernia 03/09/2017 02/01/2020 Overview: Added automatically from request for surgery [id number] Right sided abdominal pain 03/09/2017 1 04/03/2019 Overview: Added automatically from request for surgery [id number] Pain in left knee 09/10/2014 02/01/2020 Right knee pain 01/28/2010 03/15/2017 documented as of this encounter (statuses as of 06/01/2023) [facility] Diagnosis Hearing loss, unspecified hearing loss type, unspecified laterality- Primary Eustachian tube disorder, bilateral [facility] Diagnosis Routine general medical examination at health care facility- Primary Routine general medical examination at a health care facility Breast cancer screening other than mammogram Encounter for screening mammogram for malignant neoplasm of breast Encounter for colorectal cancer screening Recurrent major depressive disorder, in full remission (CMS/HCC) Osteopenia, unspecified location Primary hypertension Unspecified essential hypertension Acquired hypothyroidism Unspecified hypothyroidism Major depressive disorder in full remission, unspecified whether recurrent (CMS/HCC) documented in this encounter [facility] Work Phone: Evaluation note* Diagnosis Pain- Primary Generalized pain [facility] Diagnosis Chronic left shoulder pain- Primary Pain in joint, shoulder region [facility] Diagnosis Chronic left shoulder pain Pain in joint, shoulder region [facility]* Diagnosis Left shoulder pain, unspecified chronicity- Primary [facility] Primary hypertension- Primary Unspecified essential hypertension Acquired hypothyroidism Unspecified hypothyroidism Recurrent major depressive disorder, in full remission (CMS/HCC) Major depressive disorder in full remission, unspecified whether recurrent (CMS/HCC) Osteopenia, unspecified location documented in this encounter [facility] Work Phone: Evaluation note* Diagnosis Left buttock pain- Primary Mylagia and myositis, unspecified Lumbar radiculopathy Thoracic or lumbosacral neuritis or radiculitis, unspecified Chronic bilateral low back pain without sciatica [facility] Diagnosis Left buttock pain- Primary Mylagia and myositis, unspecified Lumbar radiculopathy Thoracic or lumbosacral neuritis or radiculitis, unspecified [facility]* Diagnosis Health maintenance examination- Primary Unspecified general medical examination Acquired hypothyroidism Unspecified hypothyroidism Primary hypertension Unspecified essential hypertension Major depressive disorder in full remission, unspecified whether recurrent (CMS-HCC) Osteopenia, unspecified location Mixed hyperlipidemia documented in this encounter [facility] Work Phone: Evaluation note* Diagnosis Pain in left hip- Primary Pain in joint, pelvic region and thigh Primary osteoarthritis of left hip Primary localized osteoarthrosis, pelvic region and thigh Trochanteric bursitis of left hip Enthesopathy of hip region Pain Generalized pain Pain in left hip Pain in joint, pelvic region and thigh documented in this encounter [facility]* Diagnosis Preoperative examination- Primary Preoperative examination, unspecified Primary osteoarthritis of left knee Primary localized osteoarthrosis, lower leg Essential hypertension Unspecified essential hypertension Thyroid disease Unspecified disorder of thyroid Depression, unspecified depression type Bilateral hearing loss, unspecified hearing loss type Pain Generalized pain Pain in left hip Pain in joint, pelvic region and thigh documented in this encounter [facility]* Urinary frequency and pressure. * Reports slight burning upon urination and noticing cloudy urine. * States she has felt this way for about 1 week. * Denies experiencing any fever or chills. * Denies having a recent UTI or having urinary incontinence. -[facility] Work Phone: History of Present illness Narrative* EPV. Continued urinary issues. Has back pain and frequent urination. * She mentions she feels like she has been sitting on a ball, protruding bladder. * Feels like she always has to go, even after urinating. * Onset of urinary frequency is about two weeks. * [place] better for a few days after taking Bactrim. * She is not sure if the back pain is from carrying laundry or other carrying activities. [facility] Work Phone: History of Present illness Narrative* EPV. Continued urinary issues. Has back pain and frequent urination. * She mentions she feels like she has been sitting on a ball, something protruding * Feels like she always has to go, even after urinating. * Onset of urinary frequency is about two weeks. * Has some back pain but thinks it is from carrying laundry [facility] Work Phone: History of Present illness Narrative* EPV. Continued urinary issues. Has back pain and frequent urination. * She mentions she feels like she has been sitting on a ball, something protruding * Feels like she always has to go, even after urinating. * Onset of urinary frequency is about two weeks. * Has some back pain but [facility] it is [facility] Work Phone: History of Present illness Narrative* medication refills * Erlinda is a 75 year old female presenting for medication refills. * - Feeling well, no specific complaints or concerns today. * - She does not check her blood pressures at home. [facility] Work Phone: History of Present illness Narrative* medication refills * Erlinda is a 75 year old female presenting for medication refills. * - Feeling well, no specific complaints or concerns today. * - She does not check her blood pressures at home. [facility] Work Phone: History of Present illness Narrative* medication refills * Erlinda is a 75 year old female presenting for medication refills. * - Feeling well, no specific complaints or concerns today. * - She does not check her blood pressures at home. [facility] Work Phone: History of Present illness Narrative* medication refills * Erlinda is a 75 year old female presenting for medication refills. * - Feeling well, no specific complaints or concerns today. * - She does not check her blood pressures at home. [facility] Work Phone: History of Present illness Narrative* EP. Here for 6 month follow up and medication. * Erlinda is a 76 year old female presenting today for a routine 6 month follow up visit and refills of medication. * -Doing good, no specific concerns or complaints. * -Seen urologist recently in [place] * -Requests a refill of her Fosamax. * -She has been eating a lot of cheese and eats fast food at least once a week. * -Her new Medicare insurance does not cover Synthroid, needs a letter sent to them from me about herSynthroid. * -Would like the influenza vaccine today, especially with the holidays approaching. [facility] Work Phone: History of Present illness Narrative* EP. Here for 6 month follow up and medication. * Erlinda is a 76 year old female presenting today for a routine 6 month follow up visit and refills of medication. * -Doing good, no specific concerns or complaints. * -She has been eating a lot of cheese and eats fast food at least once a week. * -Her new Medicare insurance does not cover Synthroid, needs a letter sent to them allowing her to get name brand Synthroid. * -Would like the influenza vaccine today, especially with the holidays approaching. [facility] Work Phone: Instructions* Name Dates Details Instructions not documented [facility] Work Phone: Reason for referral (narrative)* Diagnostic Procedure Only (Routine) - Authorized Specialty Diagnoses / Procedures Referred By Contac t Referred To Contact XR IMAGING Diagnoses Pain Procedures XR SHOULDER GENERAL 3V OR MORE AP/TRUE AP/OTHER LEFT RADEX SHOULDER COMPLETE MINIMUM 2 VIEWS Kanika Aleman MD [address] [place] [address] [place] [address] Referral ID Status Reason Start Date Expiration Date Visits Requested Visits Authorized [id number] Authorized Auto-Generat ed Referral 10/25/2022 11/24/2023 1 1 [facility] for referral (narrative)* Diagnostic Procedure Only (Routine) - Pending Review Specialty Diagnoses / Procedures Referred By Contac t Referred To Contact XR IMAGING Diagnoses Chronic left shoulder pain Procedures XR SHOULDER GENERAL 3V OR MORE AP/TRUE AP/OTHER LEFT RADEX SHOULDER COMPLETE MINIMUM 2 VIEWS Liane Rios PA-C [address] [place] [address] [place] [address] Referral ID Status Reason Start Date Expiration Date Visits Requested Visits Authorized [id number] Pending Review Auto-Generat ed Referral 11/15/2022 12/15/2023 1 1 [facility] for referral (narrative)* Diagnostic Procedure Only (Routine) - Closed Specialty Diagnoses / Procedures Referred By Contac t Referred To Contact XR IMAGING Diagnoses Chronic left shoulder pain Procedures XR SHOULDER GENERAL 3V OR MORE AP/TRUE AP/OTHER LEFT RADEX SHOULDER COMPLETE MINIMUM 2 VIEWS Liane Rios PA-C [address] [place] [address] [place] [address] Referral ID Status Reason Start Date Expiration Date V isits Requested Visits Authorized [id number] Closed Auto-Generate d Referral 11/15/2022 12/15/2023 1 1 [facility] for referral (narrative)* - Pending Review Specialty Diagnoses / Procedures Referred By Contac t Referred To Contact Physical Therapy Diagnoses Left shoulder pain, unspecified chronicity Procedures CONSULT TO PHYSICAL THERAPY Kanika Aleman MD [address] [place] [address] Referral ID Status Reason Start Date Expiration Date V isits Requested Visits Authorized [id number] Pending Review 11/26/2022 02/24/2023 1 1 [facility] for referral (narrative)* Consultation (Routine) - Authorized Specialty Diagnoses / Procedures Referred By Contac t Referred To Contact Primary Care Diagnoses Acquired hypothyroidism Primary hypertension Major depressive disorder in full remission, unspecified whether recurrent ([facility]) Procedures Follow Up In Advanced Primary Care - PCP - Established Silvia Pradhan MD [address] [facility], [place] [address] Referral ID Status Reason Start Date Expiration Date V isits Requested Visits Authorized [id number] Authorized 07/11/2023 07/10/2024 1 1 [facility] Work Phone: Reason for referral (narrative)* Diagnostic Procedure Only (Routine) - Closed Specialty Diagnoses / Procedures Referred By Contac t Referred To Contact XR IMAGING Diagnoses Pain in left hip Procedures XR HIP GENERAL 3V PELV/AP/LAT LEFT RADEX HIP UNILATERAL WITH PELVIS 2-3 VIEWS Cyril Holliday MD [address] [place] [address] [place] [address] Referral ID Status Reason Start Date Expiration Date V isits Requested Visits Authorized [id number] Closed Auto-Generate d Referral 07/13/2023 08/11/2024 1 1 * Diagnostic Procedure Only (Routine) - Closed Specialty Diagnoses / Procedures Referred By Contac t Referred To Contact XR IMAGING Diagnoses Pain Procedures XR LEG FRONTAL HIP TO ANKLE MECHANICAL AXIS BONE LENGTH STUDIES Shobha Patel PA-C [address] [address] [place] [address] Referral ID Status Reason Start Date Expiration Date V isits Requested Visits Authorized [id number] Closed Auto-Generate d Referral 07/11/2023 08/09/2024 1 1 [facility] for visit Narrative* Diagnostic Procedure Only (Routine) - Closed Specialty Diagnoses / Procedures Referred By Contac t Referred To Contact XR IMAGING Diagnoses Chronic left shoulder pain Procedures XR SHOULDER GENERAL 3V OR MORE AP/TRUE AP/OTHER LEFT RADEX SHOULDER COMPLETE MINIMUM 2 VIEWS Liane Rios PA-C [address] [place] [address] [place] [address] Referral ID Status Reason Start Date Expiration Date V isits Requested Visits Authorized [id number] Closed Auto-Generate d Referral 11/15/2022 12/15/2023 1 1 [facility] for visit Narrative* Diagnostic Procedure Only (Routine) - Closed Specialty Diagnoses / Procedures Referred By Contac t Referred To Contact XR IMAGING Diagnoses Pain Procedures XR HIP GENERAL 3V PELV/AP/LAT LEFT RADEX HIP UNILATERAL WITH PELVIS 2-3 VIEWS Shobha Patel PA-C [address] [address] [place] [address] Referral ID Status Reason Start Date Expiration Date V isits Requested Visits Authorized [id number] Closed Auto-Generate d Referral 06/27/2023 07/26/2024 1 1 [facility] Family History No Family History Records Found Mother Name Dates Details Family history of Lump Or Ma ss In Breast Status:Active Family history of Adenocarci noma Of The Breast With Squamous Metaplasia(V16.3) Status:Active Father Name Dates Details Family history of Diabetes M ellitus(V18.0) Status:Active Mother Name Dates Details Family history of Adenocarci noma Of The Breast With Squamous Metaplasia(V16.3) Status:Active Family history of Lump Or Ma ss In Breast Status:Active Father Name Dates Details Family history of Diabetes M ellitus(V18.0) Status:Active Mother Name Dates Details Family history of Adenocarci noma Of The Breast With Squamous Metaplasia(V16.3) Status:Active Family history of Lump Or Ma ss In Breast Status:Active Father Name Dates Details Family history of Diabetes M ellitus(V18.0) Status:Active Unknown Family Member Name Dates Details Diabetes Mellitus: Father(V1 8.0) Status:Active Adenocarcinoma Of The Breast With Squamous Metaplasia: Mother(V16.3) Status:Active Lump Or Mass In Breast: Moth er Status:Active Unknown Family Member Name Dates Details Diabetes Mellitus: Father(V1 8.0) Status:Active Adenocarcinoma Of The Breast With Squamous Metaplasia: Mother(V16.3) Status:Active Lump Or Mass In Breast: Moth er Status:Active Unknown Family Member Name Dates Details Diabetes Mellitus: Father(V1 8.0) Status:Active Adenocarcinoma Of The Breast With Squamous Metaplasia: Mother(V16.3) Status:Active Lump Or Mass In Breast: Moth er Status:Active Unknown Family Member Name Dates Details Diabetes Mellitus: Father(V1 8.0) Status:Active Adenocarcinoma Of The Breast With Squamous Metaplasia: Mother(V16.3) Status:Active Lump Or Mass In Breast: Moth er Status:Active Unknown Family Member Name Dates Details Adenocarcinoma Of The Breast With Squamous Metaplasia: Mother(V16.3) Status:Active Lump Or Mass In Breast: Moth er Status:Active Diabetes Mellitus: Father(V1 8.0) Status:Active Unknown Family Member Name Dates Details Diabetes Mellitus: Father(V1 8.0) Status:Active Adenocarcinoma Of The Breast With Squamous Metaplasia: Mother(V16.3) Status:Active Lump Or Mass In Breast: Moth er Status:Active Unknown Family Member Name Dates Details Diabetes Mellitus: Father(V1 8.0) Status:Active Adenocarcinoma Of The Breast With Squamous Metaplasia: Mother(V16.3) Status:Active Lump Or Mass In Breast: Moth er Status:Active Unknown Family Member Name Dates Details Diabetes Mellitus: Father(V1 8.0) Status:Active Adenocarcinoma Of The Breast With Squamous Metaplasia: Mother(V16.3) Status:Active Lump Or Mass In Breast: Moth er Status:Active Mother Name Dates Details Family history of Adenocarci noma Of The Breast With Squamous Metaplasia(V16.3) Status:Active Family history of Lump Or Ma ss In Breast Status:Active Father Name Dates Details Family history of Diabetes M ellitus(V18.0) Status:Active Unknown Family Member Name Dates Details Diabetes Mellitus: Father(V1 8.0) Status:Active Adenocarcinoma Of The Breast With Squamous Metaplasia: Mother(V16.3) Status:Active Lump Or Mass In Breast: Moth er Status:Active Unknown Family Member Name Dates Details Diabetes Mellitus: Father(V1 8.0) Status:Active Adenocarcinoma Of The Breast With Squamous Metaplasia: Mother(V16.3) Status:Active Lump Or Mass In Breast: Moth er Status:Active Unknown Family Member Name Dates Details Diabetes Mellitus: Father(V1 8.0) Status:Active Adenocarcinoma Of The Breast With Squamous Metaplasia: Mother(V16.3) Status:Active Lump Or Mass In Breast: Moth er Status:Active Unknown Family Member Name Dates Details Diabetes Mellitus: Father(V1 8.0) Status:Active Adenocarcinoma Of The Breast With Squamous Metaplasia: Mother(V16.3) Status:Active Lump Or Mass In Breast: Moth er Status:Active Unknown Family Member Name Dates Details Diabetes Mellitus: Father(V1 8.0) Status:Active Adenocarcinoma Of The Breast With Squamous Metaplasia: Mother(V16.3) Status:Active Lump Or Mass In Breast: Moth er Status:Active Unknown Family Member Name Dates Details Diabetes Mellitus: Father(V1 8.0) Status:Active Adenocarcinoma Of The Breast With Squamous Metaplasia: Mother(V16.3) Status:Active Lump Or Mass In Breast: Moth er Status:Active Unknown Family Member Name Dates Details Diabetes Mellitus: Father(V1 8.0) Status:Active Adenocarcinoma Of The Breast With Squamous Metaplasia: Mother(V16.3) Status:Active Lump Or Mass In Breast: Moth er Status:Active Unknown Family Member Name Dates Details Diabetes Mellitus: Father(V1 8.0) Status:Active Adenocarcinoma Of The Breast With Squamous Metaplasia: Mother(V16.3) Status:Active Lump Or Mass In Breast: Moth er Status:Active Summary Purpose Advance Directives No Advanced Directives Records FoundDocuments on File Type Date Recorded 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 Expl anation Advance Directive(s) 02/13/2020 6:59 AM Advance Directive(s) 09/14/2018 3:39 PM Advance Directive(s) 03/28/2017 6:46 AM Latest Code Status on File Code Status Date Activated Date Inactivated Comments Full Code 02/15/2020 5:37 PM Latest Code Status on File Code Status Date Activated Date Inactivated Comments Full Code 02/15/2020 5:37 PM Latest Code Status on File Code Status Date Activated Date Inactivated Comments Full Code 02/15/2020 5:37 PM Latest Code Status on File Code Status Date Activated Date Inactivated Comments Full Code 02/15/2020 5:37 PM Date Activated Date Inactivated Comments 02/15/2020 5:37 PM Healthcare Agents on File Name Relationship Healthcare Agent Mal[employer] Other First Alternate Health Care Agent Date Activated Date Inactivated Comments 02/15/2020 5:37 PM Reason for Referral Specialty Diagnoses / Procedures Referred By Contac t Referred To Contact Diagnoses Hearing loss, unspecified hearing loss type, unspecified laterality Procedures HEARING TEST/AUDIOGRAM COMPRE AUDIOMETRY THRESHOLD EVAL Magdiel Diamond MD [address] [address] [facility] [address] [place] [id number] Referral ID Status Reason Start Date Expiration Date Visits Requested Visits Authorized [id number] Pending Review Auto-Generat ed Referral 11/06/2021 02/04/2022 1 1 Specialty Diagnoses / Procedures Referred By Contac t Referred To Contact Radiology Diagnoses Breast cancer screening other than mammogram Encounter for screening mammogram for malignant neoplasm of breast Procedures BI mammo bilateral screening tomosynthesis Silvia Pradhan MD [address] [facility], [address] [address] Referral ID Status Reason Start Date Expiration Date Visits Requested Visits Authorized [id number] Authorized Perform Procedure 08/02/2022 01/29/2023 1 1 Specialty Diagnoses / Procedures Referred By Contac t Referred To Contact [facility] Diagnoses Left buttock pain Lumbar radiculopathy Chronic bilateral low back pain without sciatica Procedures CONSULT TO PHYSICAL THERAPY PHYSICAL THERAPY EVALUATION HIGH COMPLEX 45 MINS Srinivas Guadarrama PA-C [address] [place] [address] [facility] [address] [place] [id number] Referral ID Status Reason Start Date Expiration Date Visits Requested Visits Authorized [id number] Pending Review Auto-Generat ed Referral 04/21/2023 04/20/2024 1 1 Specialty Diagnoses / Procedures Referred By Contac t Referred To Contact XR IMAGING Diagnoses Left buttock pain Lumbar radiculopathy Chronic bilateral low back pain without sciatica Procedures XR LUMBAR MOTION 4V AP/LAT/ FLEX/EXT RADEX SPINE LUMBOSACRAL MINIMUM 4 VIEWS Srinivas Guadarrama PA-C [address] [place] [address] [place] [address] Referral ID Status Reason Start Date Expiration Date Visits Requested Visits Authorized [id number] Pending Review Auto-Generat ed Referral 04/21/2023 05/20/2024 1 1 Specialty Diagnoses / Procedures Referred By Contac t Referred To Contact [facility] Diagnoses Primary osteoarthritis of left hip Trochanteric bursitis of left hip Procedures CONSULT TO PHYSICAL THERAPY PHYSICAL THERAPY EVALUATION HIGH COMPLEX 45 MINS Shobha Patel PA-C [address] [place] [address] [facility] [place] [address] Referral ID Status Reason Start Date Expiration Date Visits Requested Visits Authorized [id number] Pending Review Auto-Generat ed Referral 07/13/2023 07/12/2024 1 1 Specialty Diagnoses / Procedures Referred By Contac t Referred To Contact XR IMAGING Diagnoses Pain in left hip Procedures XR HIP GENERAL 3V PELV/AP/LAT LEFT RADEX HIP UNILATERAL WITH PELVIS 2-3 VIEWS Cyril Holliday MD [address] [place] [address] [place] [address] Referral ID Status Reason Start Date Expiration Date V isits Requested Visits Authorized [id number] Closed Auto-Generate d Referral 07/13/2023 08/11/2024 1 1 Medications Administered Section Inactive Administered Medications - up to 3 most recent administrations Medication Order MAR Action Action Date Dose Rate Site bupivacaine (PF) 0.25 % (2.5 mg/mL) 4 mL injection (SENSORCAINE MPF) 4 mL, Injection - FOR ORTHO USE ONLY, ONE TIME INJECTION, 1 dose, Starting on Tue11/26/22 at 1441, Until Tue11/26/22 at 1441 Given 11/26/2022 2:41 PM EDT 4 mL Shoul sudeep, Left triamcinolone acetonide 80 mg injection (KeNALog 40) 80 mg, Injection - FOR ORTHO USE ONLY, ONE TIME INJECTION, 1 dose, Starting on Tue11/26/22 at 1441, Until Tue11/26/22 at 1441 Given 11/26/2022 2:41 PM EDT 80 mg Cinthia sheets, Left Additional Source Comments INFORMATION SOURCE (unrecogn ized section and content) DATE CREATED AUTHOR 06/22/2020 [facility] DATE CREATED AUTHOR AUTHOR'S ORGANIZ ATION 01/18/2022 [facility] DATE CREATED AUTHOR AUTHOR'S ORGANIZ ATION 01/19/2022 [employer] DATE CREATED AUTHOR AUTHOR'S ORGANIZ ATION 12/28/2022 [facility] DATE CREATED AUTHOR AUTHOR'S ORGANIZ ATION 07/15/2023 [facility] DATE CREATED AUTHOR AUTHOR'S ORGANIZ ATION 08/07/2023 [facility] DATE CREATED AUTHOR AUTHOR'S ORGANIZ ATION 11/02/2023 [facility] DATE CREATED AUTHOR AUTHOR'S ORGANIZ ATION 11/25/2023 [facility] Amb[facility] Source Comments (unrecognize d section and content) In the event this informatio n is protected by the Federal Confidentiality of Alcohol and Drug Abuse Patient Records regulations: The Federal rules restrict any use of the information to criminally investigate or prosecute any alcohol or drug abuse patient.[facility] the event this information is protected by the Federal Confidentiality of Alcohol and Drug Abuse Patient Records regulations: The Federal rules restrict any use of the information to criminally investigate or prosecute any alcohol or drug abuse patient.[facility] CenterIn the event this information is protected by the Federal Confidentiality of Alcohol and Drug Abuse Patient Records regulations: The Federal rules restrict any use of the information to criminally investigate or prosecute any alcohol or drug abuse patient.[facility] Center[facility] the event this information is protected by the Federal Confidentiality of Alcohol and Drug Abuse Patient Records regulations: The Federal rules restrict any use of the information to criminally investigate or prosecute any alcohol or drug abuse patient.[facility] CenterIn the event this information is protected by the Federal Confidentiality of Alcohol and Drug Abuse Patient Records regulations: The Federal rules restrict any use of the information to criminally investigate or prosecute any alcohol or drug abuse patient.[facility] CenterIn the event this information is protected by the Federal Confidentiality of Alcohol and Drug Abuse Patient Records regulations: The Federal rules restrict any use of the information to criminally investigate or prosecute any alcohol or drug abuse patient.[facility] CenterIn the event this information is protected by the Federal Confidentiality of Alcohol and Drug Abuse Patient Records regulations: The Federal rules restrict any use of the information to criminally investigate or prosecute any alcohol or drug abuse patient.[facility] CenterIn the event this information is protected by the Federal Confidentiality of Alcohol and Drug Abuse Patient Records regulations: The Federal rules restrict any use of the information to criminally investigate or prosecute any alcohol or drug abuse patient.[facility] CenterIn the event this information is protected by the Federal Confidentiality of Alcohol and Drug Abuse Patient Records regulations: The Federal rules restrict any use of the information to criminally investigate or prosecute any alcohol or drug abuse patient.[facility] CenterIn the event this information is protected by the Federal Confidentiality of Alcohol and Drug Abuse Patient Records regulations: The Federal rules restrict any use of the information to criminally investigate or prosecute any alcohol or drug abuse patient.[facility] CenterIn the event this information is protected by the Federal Confidentiality of Alcohol and Drug Abuse Patient Records regulations: The Federal rules restrict any use of the information to criminally investigate or prosecute any alcohol or drug abuse patient.[facility] CenterIn the event this information is protected by the Federal Confidentiality of Alcohol and Drug Abuse Patient Records regulations: The Federal rules restrict any use of the information to criminally investigate or prosecute any alcohol or drug abuse patient.[facility] CenterIn the event this information is protected by the Federal Confidentiality of Alcohol and Drug Abuse Patient Records regulations: The Federal rules restrict any use of the information to criminally investigate or prosecute any alcohol or drug abuse patient.[facility] CenterIn the event this information is protected by the Federal Confidentiality of Alcohol and Drug Abuse Patient Records regulations: The Federal rules restrict any use of the information to criminally investigate or prosecute any alcohol or drug abuse patient.[facility] CenterIn the event this information is protected by the Federal Confidentiality of Alcohol and Drug Abuse Patient Records regulations: The Federal rules restrict any use of the information to criminally investigate or prosecute any alcohol or drug abuse patient.[facility] Center[facility] the event this information is protected by the Federal Confidentiality of Alcohol and Drug Abuse Patient Records regulations: The Federal rules restrict any use of the information to criminally investigate or prosecute any alcohol or drug abuse patient.[facility] Care Teams (unrecognized sec tion and content) Prenatal Teacher Relationship Specialty Start Date End Date Silvia Pradhan PCP - General Family Practice 12/15/09 Cody Noe MD [address] [facility] [place] [address] Home Care Physician Orthopedics 02/14/20 Cyril Bill MD [address] [place] [address] Referring Orthopedics 02/14/20 Prenatal Teacher Relationship Specialty Start Date End Date Silvia Pradhan PCP - General Family Practice 12/15/09 Cody Noe MD [address] [place] [address] Home Care Physician Orthopedics 02/14/20 Cyril Bill MD [address] [place], [place] [id number] Referring Orthopedics 02/14/20 Prenatal Teacher Relationship Specialty Start Date End Date Silvia Pradhan PCP - General Family Practice 12/15/09 Cody Noe MD [address] [place] [address] Home Care Physician Orthopedics 02/14/20 Cyril Bill MD [address] [place], [place] [id number] Referring Orthopedics 02/14/20 Prenatal Teacher Relationship Specialty Start Date End Date Silvia Pradhan MD [address] [facility] [place] [address] PCP - General 02/16/10 Silvia Pradhan MD [address] [facility] [place] [address] PCP - [employer]vantage PCP 02/28/21 Prenatal Teacher Relationship Specialty Start Date End Date Silvia Pradhan MD PCP - General Family Medicine 12/15/09 Cody Noe MD [address] [place] [address] Home Care Provider Orthopedics 02/14/20 Cyril Bill MD [address] [place] [address] Referring Orthopedics 02/14/20 Prenatal Teacher Relationship Specialty Start Date End Date Silvia Pradhan MD PCP - General Family Medicine 12/15/09 Cody Noe MD [address] [place] [address] Home Care Provider Orthopedics 02/14/20 Cyril Bill MD [address] [place] [address] Referring Orthopedics 02/14/20 Prenatal Teacher Relationship Specialty Start Date End Date Silvia Pradhan MD PCP - General Family Medicine 12/15/09 Cody Noe MD [address] [place] [address] Home Care Provider Orthopedics 02/14/20 Cyril Bill MD [address] [place] [address] Referring Orthopedics 02/14/20 Prenatal Teacher Relationship Specialty Start Date End Date Silvia Pradhan MD PCP - General Family Medicine 12/15/09 Cody Neo MD [address] [place] [address] Home Care Provider Orthopedics 02/14/20 Cyril Bill MD [address] [place] [address] Referring Orthopedics 02/14/20 Prenatal Teacher Relationship Specialty Start Date End Date Silvia Pradhan MD PCP - General Family Medicine 12/15/09 Cody Noe MD [address] [place] [address] Home Care Provider Orthopedics 02/14/20 Cyril Bill MD [address] [place] [address] Referring Orthopedics 02/14/20 Prenatal Teacher Relationship Specialty Start Date End Date Silvia Pradhan MD [address] [facility] [address] [place] [address] PCP - General 02/16/10 Silvia Pradhan MD [address] [facility] [place] [address] PCP - [employer] Medicare Advantage PCP 02/28/21 Prenatal Teacher Relationship Specialty Start Date End Date Silvia Pradhan MD PCP - General Family Medicine 12/15/09 Cody Noe MD [address] [place] [id number] Home Care Provider Orthopedics 02/14/20 Cyril Bill MD [address] [place] [address] Referring Orthopedics 02/14/20 Prenatal Teacher Relationship Specialty Start Date End Date Silvia Pradhan MD PCP - General Family Medicine 12/15/09 Cody Noe MD [address] [place] [address] Home Care Provider Orthopedics 02/14/20 Cyril Bill MD [address] [place] [address] Referring Orthopedics 02/14/20 Prenatal Teacher Relationship Specialty Start Date End Date Silvia Pradhan MD PCP - General Family Medicine 12/15/09 Cody Neo MD [address] [place] [address] Home Care Provider Orthopedics 02/14/20 Cyril Bill MD [address] [place] [address] Referring Orthopedics 02/14/20 Prenatal Teacher Relationship Specialty Start Date End Date Silvia Pradhan MD PCP - General Family Medicine 12/15/09 Cody Noe MD [address] [place] [address] Home Care Provider Orthopedics 02/14/20 Cyril Bill MD [address] [place] [address] Referring Orthopedics 02/14/20 Prenatal Teacher Relationship Specialty Start Date End Date Silvia Pradhan MD [address] [facility] [place] [address] PCP - General 02/16/10 Silvia Pradhan MD [address] [facility] [place] [address] PCP - [place] Medicare Advantage PCP 02/28/21 Prenatal Teacher Relationship Specialty Start Date End Date Silvia Pradhan MD PCP - General Family Medicine 12/15/09 Cody Noe MD [address] [place] [address] Home Care Provider Orthopedics 02/14/20 Cyril Bill MD [address] [place] [id number] Referring Orthopedics 02/14/20 Prenatal Teacher Relationship Specialty Start Date End Date Silvia Pradhan MD PCP - General Family Medicine 12/15/09 Cody Noe MD [address] [place] [address] Home Care Provider Orthopedics 02/14/20 Cyril Bill MD [address] [place] [address] Referring Orthopedics 02/14/20 Prenatal Teacher Relationship Specialty Start Date End Date Silvia Pradhan MD PCP - General Family Medicine 12/15/09 Cody Noe MD [address] [place] [address] Home Care Provider Orthopedics 02/14/20 Cyril Bill MD [address] [place] [address] Referring Orthopedics 02/14/20 Reason for Visit (unrecogniz ed section and content) Reason Comments Ear Problem Ears seem to be bloc ked in the mornings for 1 year. Reason Comments Anxiety Thyroid Problem Medicare Annual Wellness Visit Mely gaitan Reason Comments New Pain Specialty Diagnoses / Procedures Referred By [place] gaitan Referred To Contact Orthopedics / ORTHOPAEDIC SURGERY Diagnoses SHOULDER PAIN LT Procedures DON NEW ORTH/SPORTS Self Kanika Aleman MD [address] [address] Referral ID Status Reason Start Date Expiration Date V isits Requested Visits Authorized [id number] Outside PCP 11/26/2022 01/25/2023 1 1 Reason Comments Follow-up EP. Her for 6 month follow up and medication. Reason Comments Follow Up Low Back Pain Leg Pain Left Hip Pain groin Reason Comments Patient Update Reason Comments Medicare Annual Wellness Visit Subsequcollin t EP. Here for [facility]. Discuss worsening hip pain that affects some daily activities. Has sore throat and drainage. Reason Comments New Pain FOR RECORDS PERTAINING TO PATIENTS WHO ARE OR HAVE BEEN ENROLLED IN A CHEMICAL DEPENDENCY/SUBSTANCEABUSE PROGRAM, SOME INFORMATION MAY BE OMITTED. This clinical summary was aggregated from multiple sources. Caution should be exercised in using it in the provision of clinical care. This summary normalizes information from multiple sources, and as a consequence, information in this document may materially change the coding, format and clinical context of patient data. In addition, data may be omitted in some cases. CLINICAL DECISIONS SHOULD BE BASED ON THE PRIMARY CLINICAL RECORDS. [employer] provides no warranty or guarantee of the accuracy or completeness of information in this document.
== END | disposition home or self-care (01) ==
PROVIDERS: PCP General Practice; Referring Provider Urology; Visit Provider Urology
DX: N39.0 Urinary tract infection, site not specified (principal)
CPT/HCPCS: 87077; 87086; 87088; 87186